=== PATIENT | female | born 1940 | race Caucasian/White ===

== ENCOUNTER 2024-01-02 00:16 | Inpatient (IN) | payer MEDICARE, OTHER, MEDICAID, SELFPAY ==
[2024-01-02] VITALS (51 sets, daily range): BP systolic 91–131; BP diastolic 40–77; PULSE 73–102; RESP 11–24; TEMP 36–36.8; O2SAT 92–100
--- NOTE | 2024-01-02 00:15 | DI.CT_ITS ---
Exam(s) CT ABDOMEN PELVIS W EXAM: CT ABDOMEN PELVIS W CLINICAL HISTORY: vaginal bleeding. TECHNIQUE: Imaging Protocol: Axial computed tomography images with coronal and sagittal reformatted images were created and reviewed CONTRAST MATERIAL: Intravenous: Omnipaque 350 Contrast volume:100 ml Oral: yes / no COMPARISON: No exams were available for comparison FINDINGS: ABDOMEN and PELVIS: Exam somewhat limited by patient body habitus. Portions of the abdominal soft tissues are not inclu ded in the field of view. Lung Bases: Moderate-sized bilateral pleural effusions. Adjacent atelectasis. Heart mildly enlarged . Mitral annular and aortic valve calcifications. No pericardial effusion. Liver: Normal density. No suspicious mass. Gallbladder and biliary tract: Cholecystostomy tube. No surrounding fluid collection. No significan t biliary dilatation. Pancreas: Normal density. No abnormal calcifications or inflammatory process. No evidence of mass. Spleen: Normal. Kidneys: Normal size, contour and axis. Small stone lower pole left kidney. No obstructive uropathy . No suspicious masses seen. Adrenal glands: No masses seen. Vasculature: Abdominal aorta non-dilated. Soft tissues: Small fat containing umbilical hernia. Some soft tissue edema seen in the lateral abdo brandie subcutaneous fat bilaterally. Muscular atrophy. Bladder: No gross wall thickening. No calculi.No focal mass. Bowel: Large amount of stool. Diverticulosis. No evidence of diverticulitis. No obstruction. Mil d perirectal wall thickening and some stranding in the surrounding fat. The findings may represent p roctitis. Appendix normal. Peritoneal cavity: No ascites. No focal collection. No mesenteric inflammatory response. Bones: Degenerative disc changes greatest at L4-5. Degenerative changes of the facet joints at L4-5 with mild spondylolisthesis. Reproductive organs: Left-sided Bartholin gland cyst. Lymph nodes: No pathologically enlarged lymph nodes. IMPRESSION:: Moderate-sized bilateral pleural effusions and adjacent atelectasis. Cholecystostomy tube. No biliary dilatation or surrounding fluid collection. Mild wall thickening of the rectum and mild perirectal stranding could indicate proctitis. Diverticulosis without evidence of diverticulitis. Large quantity of stool. RADIATION DOSE DELIVERED: Total DLP DATA REPOSITORY: All CT scans at this facility are submitted to the National Radiology Data Registry (NRDR) Dose Index Registry (DIR) with the [employer] (A[employer]). RADIATION OPTIMIZATION: All CT scans at this facility use at least one of these dose optimization te chniques: automated exposure control; mA and/or kV adjustment per patient size (includes targeted exa ms where dose is matched to clinical indication); or iterative reconstruction.
[2024-01-02 00:35] LABS: Abs Immature Grans 0.02 10^3/uL (0.0-0.06); Absolute Basophil Count 0.05 10^3/uL (0.0-0.2); Absolute Eosinophil Count 0.43 10^3/uL (0.0-0.7); Absolute Lymphocyte Count 1.49 10^3/uL (1.2-3.4); Absolute Monocyte Count 1.11 10^3/uL (0.1-0.8); Absolute Neutrophil Count 6.27 10^3/uL (1.2-6.7); Basophils % 0.5 %; Eosinophils % 4.6 %; HGB 7.1 g/dL (11.2-15.7); Immature Grans % 0.2 %; Lymphocytes % 15.9 %; MCHC 30.9 % (32.0-36.0); MCV 91 fL (80-95); MPV 10.1 fL (8.0-11.0); Monocytes % 11.8 %; Platelet Count 219 10^3/uL (130-400); RBC 2.54 10^6/uL (3.93-5.22); RDW 18.2 % (11.7-14.6); RDW-SD 60.7 fL; WBC 9.37 10^3/uL (4.4-10.8)
--- NOTE | 2024-01-02 00:36 | ED.GENADUL_ITS ---
Discharge Plan Disposition Patient Disposition: Admit to [facility] Condition: Good Discharge Details Chief Complaint: GI Bleed Clinical Impression: (HFpEF) heart failure with preserved ejection fraction, Anemia, Anticoagulant long-term use, Acute GI bleeding Primary Care Provider: Blade Thayer ED Provider: Shanna Spence Home Meds and New Rx's Prescriptions: No Action amlodipine 5 mg tablet 5 mg PO DAILY cholecalciferol (vitamin D3) 25 mcg (1,000 unit) capsule 25 mcg PO DAILY Eliquis 2.5 mg tablet 2.5 mg PO BID famotidine [Acid Controller] 20 mg tablet 20 mg PO DAILY fesoterodine 8 mg tablet extended release 24 hr 8 mg PO DAILY fluoxetine 20 mg capsule 20 mg PO DAILY fluticasone propionate [24 Hour Allergy Relief] 50 mcg/actuation spray,suspension 1 spray intranasal BID Rx Instructions: administer into each nostril furosemide 40 mg tablet 40 mg PO BID metoprolol succinate [Toprol XL] 100 mg tablet extended release 24 hr 100 mg PO DAILY mirabegron [Myrbetriq] 50 mg tablet extended release 24 hr 50 mg PO DAILY Spiriva Respimat 2.5 mcg/actuation mist 2 inh inhalation DAILY trazodone 50 mg tablet 50 mg PO QHS PRN acetaminophen [Tylenol Extra Strength] 500 mg tablet 1,000 mg PO Q8H PRN PRN atorvastatin 20 mg tablet 20 mg PO QHS HPI General Mode of arrival: EMS . Date/Time Provider Initiated Documentation: 01/02/24 00:20 . Limitations to Documentation: no limitations . Information obtained by: patient, EMS and old records reviewed . HPI Narrative: 83yo F who was [facility] on [facility] after gallbladder surgery, biliary drain in place, hx of T2DM, COPD, HTN, afib, CHF, CKD, GERD, on apixiban, presenting for reported heavy vaginal bleeding. History from patient, EMS, and medical records sent with patient. Patient reports this occurred around 8pm, she thought it was coming from her rectum but was told it was vaginal. Reports she had had post-menopausal bleeding in May of last year that lasted for about a week but was not heavy. None since then. Feels generally 'achy all over' but no focal pain and no abodminal pain. Lightheaded when she sits up quickly. No chest pain or shortness of breath. Otherwise in her usual state of health with no fevers, chills, rash, nausea, vomiting, or other concerns. Related Data Home Medications Medication Instructions Recorded Confirmed acetaminophen 500 mg tablet 1,000 mg PO Q8H PRN PRN 01/02/24 01/02/24 (Tylenol Extra Strength) amlodipine 5 mg tablet 5 mg PO DAILY 01/02/24 01/02/24 apixaban 2.5 mg tablet (Eliquis) 2.5 mg PO BID 01/02/24 01/02/24 atorvastatin 20 mg tablet 20 mg PO QHS 01/02/24 01/02/24 cholecalciferol (vitamin D3) 25 25 mcg PO DAILY 01/02/24 01/02/24 mcg (1,000 unit) capsule famotidine 20 mg tablet (Acid 20 mg PO DAILY 01/02/24 01/02/24 Controller) fesoterodine 8 mg tablet,extended 8 mg PO DAILY 01/02/24 01/02/24 release 24 hr fluoxetine 20 mg capsule 20 mg PO DAILY 01/02/24 01/02/24 fluticasone propionate 50 1 spray intranasal BID 01/02/24 01/02/24 mcg/actuation nasal spray,suspension (24 Hour Allergy Relief) furosemide 40 mg tablet 40 mg PO BID 01/02/24 01/02/24 metoprolol succinate 100 mg 100 mg PO DAILY 01/02/24 01/02/24 tablet,extended release 24 hr (Toprol XL) mirabegron 50 mg tablet,extended 50 mg PO DAILY 01/02/24 01/02/24 release 24 hr (Myrbetriq) tiotropium bromide 2.5 2 inh inhalation DAILY 01/02/24 01/02/24 mcg/actuation mist for inhalation (Spiriva Respimat) trazodone 50 mg tablet 50 mg PO QHS PRN 01/02/24 01/02/24 Allergies Allergy/AdvReac Type Severity Reaction Status Date / Time duloxetine [From Cymbalta] Allergy Unknown Unknown Verified 01/02/24 00:38 hydrochlorothiazide Allergy Unknown Unknown Verified 01/02/24 00:38 indomethacin [From Indocin] Allergy Unknown Unknown Verified 01/02/24 00:38 lisinopril Allergy Unknown Unknown Verified 01/02/24 00:38 oxybutynin Allergy Unknown Unknown Verified 01/02/24 00:38 tolmetin Allergy Unknown Unknown Verified 01/02/24 00:38 triamterene Allergy Unknown Unknown Verified 01/02/24 00:38 banana Allergy Unknown Verified 01/02/24 00:38 General Stated Complaint: [employer]EVEL [employer] EVAN: 3 Review of Systems Narrative: see HPI Exam Narrative Exam Narrative: General: Alert, chronically ill appearing, in no acute distress. Head: Normocephalic, atraumatic. Pale conjuctiva. Neck: Trachea midline, ?Neck supple. ENT: ?MMM.? No oropharygeal lesions or exudate. Cardiac: ?RRR, no murmurs appreciated. Right chest port in place. Resp: No respiratory distress. CTAB. Abd: ?Soft, non-distended, nontender. Biliary drain in place. : ?No suprapubic tenderness. Pelvic: Limited pelvic exam. Normal external genitalia. No active bleeding, no blood noted in the vaginal vault. Cervix not visualized. Rectal: No active bleeding. Normal tone. No palpable lesions or fissures. Gross blood present on glove. Extremities: ?No deformities.? Neurologic: GCS 15. ? Moves all extremities freely against gravity Course Vital Signs Vital signs: Vital Signs Temperature 36.5 C 01/02/24 00:15 Pulse 94 H 01/02/24 00:15 Respiratory Rate 16 01/02/24 00:15 Blood Pressure 131/76 01/02/24 00:15 Pulse Oximetry 98 01/02/24 00:15 Temperature 36.5 C 01/02/24 00:15 Temperature Source Temporal Artery Scan 01/02/24 00:15 Pulse 94 H 01/02/24 00:15 Respiratory Rate 16 01/02/24 00:15 Respiratory Effort Normal 01/02/24 00:23 Blood Pressure 131/76 01/02/24 00:15 Pulse Oximetry 98 01/02/24 00:15 Oxygen Delivery Method Blow by 01/02/24 00:15 Oxygen Flow Rate 0 01/02/24 00:15 Pain Level 0 01/02/24 00:15 Lab/Test Results Lab/Test Results: Laboratory Tests Range/Units 01/02/24 00:23 WBC (4.4-10.8) 10^3/uL 9.37 RBC (3.93-5.22) 10^6/uL 2.54 L Hgb (11.2-15.7) g/dL 7.1 L Hct (36.0-46.0) % 23.0 L MCV (80-95) fL 91 MCH (27.0-33.0) pg 28.0 MCHC (32.0-36.0) % 30.9 L RDW (11.7-14.6) % 18.2 H Plt Count (130-400) 10^3/uL 219 MPV (8.0-11.0) fL 10.1 Immature Gran % % 0.2 Neutrophils % % 67.0 Lymphocytes % % 15.9 Monocytes % % 11.8 Eosinophils % % 4.6 Basophils % % 0.5 Nucleated RBC % (0.0-0.3) % 0.0 Absolute Neutrophils (1.2-6.7) 10^3/uL 6.27 Absolute Lymphocytes (1.2-3.4) 10^3/uL 1.49 Absolute Monocytes (0.1-0.8) 10^3/uL 1.11 H Absolute Eosinophils (0.0-0.7) 10^3/uL 0.43 Absolute Basophils (0.0-0.2) 10^3/uL 0.05 VBG Lactate (0.6-1.4) mmol/L 1.0 Medical Decision Making 83yo F who was admitted to [facility] on 12/27 after gallbladder surgery, biliary drain in place, hx of T2DM, COPD, HTN, afib, CHF, CKD, GERD, on apixiban, presenting for reported heavy vaginal bleeding. History from patient, EMS, and medical records sent with patient. Patient reports this occurred around 8pm, she thought it was coming from her rectum but was told it was vaginal. Vital signs reassuring on arrival, mild tachycardia with HR 94. On exam she is alert but does have pale conjuctiva. Benign abdominal exam. Limited pelvic exam shows no vaginal bleed, rectal exam with scant amount of gross blood on glove however no active bleeding. Labs reviewed as below, CBC with marked anemia Hg 7.1, CMP with Cr 2.1 (unknown baseline) otherwise no immediately significant abnormalities, lactate normal, slightly elevated INR at 1.2. With significant bleed and borderline Hg, as well as delicate age, will transfuse 1U PRBCs now. Given this degree of anemia will evaluate for cardiac ischemic with EKG and trop. EKG afib with no ST segment or T wave abnormalities to suggest occlusive TN, trop negative. CT abd/pelvis independently reviewed, no obstruction or free fluid on my view though does have bilateral pleural e ffusions , agree with radiology read below. She is at her baseline supplemental O2 via NC and has no chest pain or shortness of breath; unclear duration of effusions. Multiple attempts to get [place] records [place] [facility] [facility] [facility] transfer center able to provide H&P and discharge summary from most recent admission there. In summary, hospital admission for septic shock, po lymicrobrial bacteremia including MRSA, E coli UTI, and coliits. Initially in the ICU, intubated. Course was c/b rectal bleeding requiring transfusion of 2U PRBCS as well as HFpEF exacerbation improved after diuresis. Last PERC tube exchange 11/27/23, plan for cholecystectomy at some point. At hospital discharge plan was for outpatient colonoscopy. CT chest showed bilateral pleural effusions (small on right, moderate on left) On reassessment patient resting comfortably, denies complaints. Blood infusion. No further bleeding or bowel movements. MAP remains >65. Discussed with Dr. Santa of surgery; requested admission to the medicine service, plan for colonoscopy at some point. Discussed with hospitalist Dr. Srinivasan; patient accepted to medicine service. Awaiting admission orders and transfer to the floor. Imaging Data Radiologic Study: Imaging: CT Scan Radiologist's impression: IMPRESSION: 1. Large pleural effusions bilaterally and bibasilar atelectasis/infiltrate 2. Fluid stranding around the cholecystostomy tube. No biliary ductal dilatation. 3. Perirectal stranding. Correlate for proctitis. Lab Data Lab results reviewed: Yes I reviewed the patient's lab results. Labs: Laboratory Tests Range/Units 01/02/24 01/02/24 00:23 01:30 WBC (4.4-10.8) 10^3/uL 9.37 RBC (3.93-5.22) 10^6/uL 2.54 L Hgb (11.2-15.7) g/dL 7.1 L Hct (36.0-46.0) % 23.0 L MCV (80-95) fL 91 MCH (27.0-33.0) pg 28.0 MCHC (32.0-36.0) % 30.9 L RDW (11.7-14.6) % 18.2 H Plt Count (130-400) 10^3/uL 219 MPV (8.0-11.0) fL 10.1 Immature Gran % % 0.2 Neutrophils % % 67.0 Lymphocytes % % 15.9 Monocytes % % 11.8 Eosinophils % % 4.6 Basophils % % 0.5 Nucleated RBC % (0.0-0.3) % 0.0 Absolute Neutrophils (1.2-6.7) 10^3/uL 6.27 Absolute Lymphocytes (1.2-3.4) 10^3/uL 1.49 Absolute Monocytes (0.1-0.8) 10^3/uL 1.11 H Absolute Eosinophils (0.0-0.7) 10^3/uL 0.43 Absolute Basophils (0.0-0.2) 10^3/uL 0.05 PT (9.1-11.1) sec 11.9 H INR (0.9-1.1) 1.2 H APTT (23.6-32.8) sec 27.6 VBG Lactate (0.6-1.4) mmol/L 1.0 Sodium (136-145) mmol/L 138 Potassium (3.5-5.1) mmol/L 3.6 Chloride (98-107) mmol/L 95 L Carbon Dioxide (21.0-32.0) mmol/L 39.7 H Anion Gap (3-11) mmol/L 3.3 BUN (7-18) mg/dL 31 H Creatinine (0.55-1.02) mg/dL 2.1 H Est GFR (CKD-EPI 2020) (mL/min/1.73m2) 22.95 Glucose (74-106) mg/dL 140 H Calcium (8.5-10.1) mg/dL 8.4 L Total Bilirubin (0.2-1.0) mg/dL 0.7 AST (15-37) U/L 18 ALT (14-59) U/L 16 Alkaline Phosphatase (46-116) U/L 88 Troponin I (< or =60) ng/L < 50 Total Protein (6.4-8.2) g/dL 6.0 L Albumin (3.4-5.0) g/dL 2.1 L ABO/Rh O Positive Blood Type Recheck O Positive Antibody Screen NEGATIVE Crossmatch See Detail Quality:SDOH Health Related Social Needs: No Data to Display PFSH All Active Problems (Updated 01/02/24 @ 03:05 by Shanna Spence MD) Acute GI bleeding (Acute) Anticoagulant long-term use (Acute) Anemia (Chronic) (HFpEF) heart failure with preserved ejection fraction (Acute) Social History Smoking risk assessment performed?: No
--- NOTE | 2024-01-02 00:45 | RT.EKG_ITS ---
APPROVED REPORT Exam: Resting ECG Reason for Exam: anemia Patient Location: E HR:90 bpm ECG Measurements Heart Rate 90 AXIS NC [id number] P [id number] QRSd 92 QRS -22 QT 383 T 45 QTc 469 Conclusion Atrial fibrillation...V-rate 65-107, irreg A-activity Multiple ventricular premature complexes...V complexes w/ short R-R intervls Probable LVH with secondary repol abnrm...multiple LVH criteria Inferior infarct, old...Q >35mS, II III aVF no ST segment or T wave abnormalities to suggest occlusive [place]
[2024-01-02 00:49] LABS: INR 1.2 (0.9-1.1); PTT Activated 27.6 sec (23.6-32.8); Prothrombin Time 11.9 sec (9.1-11.1)
[2024-01-02 00:56] LABS: ALT 16 U/L (14-59); AST 18 U/L (15-37); Albumin 2.1 g/dL (3.4-5.0); Alkaline Phosphatase 88 U/L (46-116); Anion Gap 3.3 mmol/L (3-11); BUN 31 mg/dL (7-18); Bilirubin, Total 0.7 mg/dL (0.2-1.0); CO2 39.7 mmol/L (21.0-32.0); CREATININE 2.1 mg/dL (0.55-1.02); Calcium 8.4 mg/dL (8.5-10.1); Chloride 95 mmol/L (98-107); Estimated GFR 22.95 (mL/min/1.73m2); Glucose 140 mg/dL (74-106); Potassium 3.6 mmol/L (3.5-5.1); Sodium 138 mmol/L (136-145)
--- NOTE | 2024-01-02 01:08 | TELEP.MEDR_ITS ---
Date of service: 01/02/24 Time of Service[facility] 01:08 [facility] Allergies Allergies: duloxetine [From Cymbalta] Allergy (Unknown, Verified 01/02/24 00:38) Unknown hydrochlorothiazide Allergy (Unknown, Verified 01/02/24 00:38) Unknown indomethacin [From Indocin] Allergy (Unknown, Verified 01/02/24 00:38) Unknown lisinopril Allergy (Unknown, Verified 01/02/24 00:38) Unknown oxybutynin Allergy (Unknown, Verified 01/02/24 00:38) Unknown tolmetin Allergy (Unknown, Verified 01/02/24 00:38) Unknown triamterene Allergy (Unknown, Verified 01/02/24 00:38) Unknown banana Allergy (Verified 01/02/24 00:38) Unknown Interview Person Interviewed: * Spoke with RN at [facility], she went over medications verbally with me over the phone, since MAR was not able to be faxed over correctly. Quality Quality of Interview/Accuracy of Medication List: Good Sources Sources used to compile medication list: MAR Changes made to Home Medication List: ADDITIONS: * Amlodipine 5mg po daily * Vitamin D 1000units po daily * Eliquis 2.5mg po bid * Famotidine 20mg po daily * Fesoterodine ER 8mg po daily * Fluoxetine 20mg po daily * Flonase 1 spray each nostril bid * Lasix 40mg po bid * Toprol XL 100mg po daily * Myrbetriq ER 50mg po daily * Spirivia respimate 2.5mcg inhale 2 puffs daily * Trazodone 50mg po hs prn * Tylenol 1000mg po tid prn * Atorvastatin 20mg po hs DELETIONS: None CHANGES: None Additional Notes Additional Notes: Patient received Vancomycin 1000mg IV for one dose 01/01/24 prior to arriving to [facility]. Patient did not get evening doses of medications. Recommended Changes Recommended Changes(reason for recommendation): None Attestation: The home medication list is now updated to the best of my knowledge and is ready to be reconciled by the provider. Please contact the [facility] Medication Reconciliation Pharmacist at for any questions.
--- NOTE | 2024-01-02 01:08 | TELEP.MEDREC ---
Date of service: 01/02/24 [facility] Allergies: duloxetine [From Cymbalta] Allergy (Unknown, Verified 01/02/24 00:38) Unknown hydrochlorothiazide Allergy (Unknown, Verified 01/02/24 00:38) Unknown indomethacin [From Indocin] Allergy (Unknown, Verified 01/02/24 00:38) Unknown lisinopril Allergy (Unknown, Verified 01/02/24 00:38) Unknown oxybutynin Allergy (Unknown, Verified 01/02/24 00:38) Unknown tolmetin Allergy (Unknown, Verified 01/02/24 00:38) Unknown triamterene Allergy (Unknown, Verified 01/02/24 00:38) Unknown banana Allergy (Verified 01/02/24 00:38) Unknown Interview Person Interviewed: Spoke with RN at [facility], she went over medications verbally with me over the phone, since MAR was not able to be faxed over correctly. Quality Quality of Interview/Accuracy of Medication List: Good Sources Sources used to compile medication list: MAR Changes made to Home Medication List: ADDITIONS: Amlodipine 5mg po daily Vitamin D 1000units po daily Eliquis 2.5mg po bid Famotidine 20mg po daily Fesoterodine ER 8mg po daily Fluoxetine 20mg po daily Flonase 1 spray each nostril bid Lasix 40mg po bid Toprol XL 100mg po daily Myrbetriq ER 50mg po daily Spirivia respimate 2.5mcg inhale 2 puffs daily Trazodone 50mg po hs prn Tylenol 1000mg po tid prn Atorvastatin 20mg po hs DELETIONS: None CHANGES: None Additional Notes Additional Notes: Patient received Vancomycin 1000mg IV for one dose 01/01/24 prior to arriving to [facility]. Patient did not get evening doses of medications. Recommended Changes Recommended Changes(reason for recommendation): None Attestation: The home medication list is now updated to the best of my knowledge and is ready to be reconciled by the provider. Please contact the [facility] Medication Reconciliation Pharmacist at for any questions.
[2024-01-02 01:10] LABS: Troponin I < 50 ng/L (< or =60)
[2024-01-02] MEDS: Omnipaque 350 MG/ML 100 ML BTL IJ (01:27)
[2024-01-02] MEDS: Normal Saline - Diluent 50 ML VIAL IV (01:28)
--- NOTE | 2024-01-02 01:35 | NUR.NOTE ---
Patient had CT Scan prior to EKG being performed.
--- NOTE | 2024-01-02 02:24 | DI.VRAD_ITS ---
PROCEDURE INFORMATION: Exam: CT Abdomen And Pelvis With Contrast Exam date and time: 01/02/2024 1:18 AM Age: 83 years old Clinical indication: Other: Vaginal bleeding TECHNIQUE: Imaging protocol: Computed tomography of the abdomen and pelvis with contrast. Contrast material: OMNI 350; Contrast volume: 100 ml; Contrast route: INTRAVENOUS (IV); COMPARISON: No relevant prior studies available. FINDINGS: Lower thorax: Large pleural effusions bilaterally. Dependent atelectasis/infiltrate and ground-glass opacities bilaterally. Liver: Normal. No mass. Gallbladder and bile ducts: Cholecystostomy tube is present. There is fluid stranding around the tube. No discrete fluid collections. No significant biliary ductal dilatation. Pancreas: Normal. No ductal dilation. Spleen: Normal. No splenomegaly. Adrenal glands: Normal. No mass. Kidneys and ureters: No hydronephrosis. Punctate nonobstructing calculus in the left kidney. Stomach and bowel: No evidence of bowel obstruction. Large amount of stool in the colon. Posterior perirectal stranding. Appendix: Normal appendix. Intraperitoneal space: No free fluid or free air. Vasculature: Ectatic, calcified abdominal aorta without aneurysm or dissection. Lymph nodes: Unremarkable. No enlarged lymph nodes. Urinary bladder: Unremarkable as visualized. Reproductive: Left-sided Bartholin gland cyst. Bones/joints: Grade 1 spondylolisthesis at L4-L5. Degenerative disc disease of the thoracolumbar spine. No acute fracture. Soft tissues: Small umbilical hernia containing fat. IMPRESSION: 1. Large pleural effusions bilaterally and bibasilar atelectasis/infiltrate 2. Fluid stranding around the cholecystostomy tube. No biliary ductal dilatation. 3. Perirectal stranding. Correlate for proctitis. Dictated and Authenticated by: Eber Alba MD. Ordering:GAURI Otero MD
--- NOTE | 2024-01-02 03:11 | HPE_ITS ---
Date of service: 01/02/24 Time of Service: 03:11 Assessment and Plan Assessment and plan (1) Acute blood loss anemia: Start date: 01/01/24 Status: Acute Assessment and plan: This is an 83-year-old lady with recurrent complications of an abscess gallbladder every hospitalizations for sepsis and infection requiring chronic PICC line in her right upper chest as well as a chronic cholecystostomy tube draining and right upper quadrant. She did have a lower GI bleed with diverticulosis and possible colitis with her last hospitalization at [facility] but was replaced on Eliquis for chronic atrial fibrillation which is 2.5 mg twice a day and sent to the local rehab center in [place]. She began to have rectal bleeding and has acute blood loss anemia requiring transfusion with 1 unit of packed red blood cells given so far being cautious with her CHF. She has not hemodynamically unstable with no tachycardia but is on metoprolol for chronic atrial fibrillation and her blood pressure is adequate but low. She will be placed on split dosing metoprolol and monitor closely for hypotension or exacerbation of heart failure has been transfused. Surgical consultation to address her lower GI bleed as well as her cholecystostomy tube and PICC line. Patient is a full code. (2) Lower GI bleed: Status: Acute Assessment and plan: Was diverticulosis on CT scan needing endoscopy. Surgical consultation. Clear fluids for now. (3) Colitis: Status: Acute Assessment and plan: Patient does have left lower quadrant tenderness without rebound and CT scan with last hospitalization and this hospitalization indicating diverticulosis but no diverticulitis or abscess. She does have thickening and stranding of her colonic rincon and there lower colon with consideration of colitis. Sed rate and procalcitonin have been ordered with patient lactate normal. He does not have an elevated WBC. Antibiotics considered but being held for now with surgical consultation to advise. (4) Diverticulosis: Status: Chronic Assessment and plan: Possible source of recurrent lower GI bleed with patient on Eliquis. Eventual endoscopy for evaluation. (5) Chronic atrial fibrillation: Status: Chronic Assessment and plan: On Eliquis which will be held with patient to return to anticoagulation once stabilized. (6) (HFpEF) heart failure with preserved ejection fraction: Status: Chronic Assessment and plan: Hold diuretics for now with patient's low blood pressure but reinitiate as allowed. Follow-up echocardiogram as indicated. Qualifiers: Heart failure chronicity: chronic Qualified Code(s): I50.32 - Chronic diastolic (congestive) heart failure (7) COPD (chronic obstructive pulmonary disease): Status: Chronic Assessment and plan: Continue outpatient medical therapy and monitor symptoms. Qualifiers: COPD type: unspecified COPD Qualified Code(s): J44.9 - Chronic obstructive pulmonary disease, unspecified (8) Depression: Status: Chronic Assessment and plan: Continue outpatient medical therapy and monitor symptoms. Qualifiers: Depression Type: other depression Qualified Code(s): F32.89 - Other specified depressive episodes (9) Edema of left upper extremity: Status: Chronic Assessment and plan: This is been intermittent with her recent hospitalizations the patient has been and mobile with risk of venous thrombosis. She is on low-dose Eliquis which may be inadequate. Ultrasound of the upper extremity and if DVT needs to be anticoagulated with her GI bleed this is complicated. History of Present Illness History of Present Illness Chief Complaint: Rectal bleeding with acute blood loss anemia Narrative: This is an 83-year-old female patient who had acute abdominal pain with her gallbladder abscess and ruptured in April 2023 prompting hospitalization at [facility] having a cholecystostomy tube placed and no corrective surgery and also being treated for sepsis and infection. She was eventually transferred to [facility] for continued ICU medical therapy being unstable. She is a full code. She has remained intermittently ill since that event going home and then being rehospitalized at [facility] eventually having gone to the [facility] near her home but requiring recurrent hospitalizations for infection. She had a most recent hospitalization at [facility] for sepsis and during that time had a lower GI bleed with bright red blood requiring transfusion 2 units of packed red blood cells per ED provider signout. Her Eliquis had been held during the last hospital stay at [facility] but restarted before discharge without having endoscopy evaluation with CT scan of the abdomen showing diverticulosis and possible colitis. There was a plan for outpatient endoscopy at that discharge. She was at the [facility] only 4 days after this last hospitalization presenting to the [facility] ED this hospitalization with bright red blood per rectum without syncope or palpitations and having no discomfort reported. She was found to have acute blood loss anemia requiring transfusion with initiation of 1 unit of packed red blood cells in the ED prior to admission. Presently her blood pressure is soft and her metoprolol has been split dose with short acting metoprolol because of chronic atrial fibrillation now with situational low blood pressure. She is weak but is not having chest pain or shortness of breath with a history of CHF and bilateral pleural effusions which are stable. She does complain of intermittent left arm pain which is more musculoskeletal have been hospitalized and having her arm moved without her being fully awake and being a bad shoulder in the past. She does have intermittent swelling in that arm and is on low-dose Eliquis so DVT should be a consideration with her immobility and multiple procedures. She does have a PICC line in her right chest which has been replaced several times over the last months. She also has a cholecystostomy tube in her right upper abdomen which is chronic since April 2023. She is morbidly obese which is a risk factor for venous thrombosis. Patient states that she has been steadily going downhill but as stated is a full code. Her desire is to return home eventually with home health care worker 5 times a week. The patient will be admitted for transfusion and monitoring of her cardiovascular status with surgical consultation for acute GI bleed and blood loss anemia. Her other medical problems will be attended by the surgeon and the hospitalist during this hospitalization. Review of Systems Narrative: 13 point review of systems otherwise unrevealing or stable. She has had no fever or chills. She denies any dysuria or abdominal pain with bowel movements. She did have bright red blood as reported. She has had no vaginal bleeding. PFSH All Active Problems (Updated 01/02/24 @ 05:54 by Wojciech Srinivasan) Edema of left upper extremity (Chronic) Depression (Chronic) COPD (chronic obstructive pulmonary disease) (Chronic) Colitis (Acute) Lower GI bleed (Acute) Acute blood loss anemia (Acute) Diverticulosis (Chronic) Chronic atrial fibrillation (Chronic) Acute GI bleeding (Acute) Anticoagulant long-term use (Acute) Anemia (Chronic) (HFpEF) heart failure with preserved ejection fraction (Chronic) Social History Smoking/Tobacco Use Status: Former Tobacco Use Smoking risk assessment performed?: Yes Housing: skilled nursing Meds Allergies and Home Medications Allergies Allergy/AdvReac Type Severity Reaction Status Date / Time duloxetine [From Cymbalta] Allergy Unknown Unknown Verified 01/02/24 00:38 hydrochlorothiazide Allergy Unknown Unknown Verified 01/02/24 00:38 indomethacin [From Indocin] Allergy Unknown Unknown Verified 01/02/24 00:38 lisinopril Allergy Unknown Unknown Verified 01/02/24 00:38 oxybutynin Allergy Unknown Unknown Verified 01/02/24 00:38 tolmetin Allergy Unknown Unknown Verified 01/02/24 00:38 triamterene Allergy Unknown Unknown Verified 01/02/24 00:38 banana Allergy Unknown Verified 01/02/24 00:38 Home Medications Medication Instructions Recorded Confirmed Type acetaminophen 500 mg tablet 1,000 mg PO Q8H PRN PRN 01/02/24 01/02/24 History (Tylenol Extra Strength) amlodipine 5 mg tablet 5 mg PO DAILY 01/02/24 01/02/24 History apixaban 2.5 mg tablet (Eliquis) 2.5 mg PO BID 01/02/24 01/02/24 History atorvastatin 20 mg tablet 20 mg PO QHS 01/02/24 01/02/24 History cholecalciferol (vitamin D3) 25 25 mcg PO DAILY 01/02/24 01/02/24 History mcg (1,000 unit) capsule famotidine 20 mg tablet (Acid 20 mg PO DAILY 01/02/24 01/02/24 History Controller) fesoterodine 8 mg tablet,extended 8 mg PO DAILY 01/02/24 01/02/24 History release 24 hr fluoxetine 20 mg capsule 20 mg PO DAILY 01/02/24 01/02/24 History fluticasone propionate 50 1 spray intranasal BID 01/02/24 01/02/24 History mcg/actuation nasal spray,suspension (24 Hour Allergy Relief) furosemide 40 mg tablet 40 mg PO BID 01/02/24 01/02/24 History metoprolol succinate 100 mg 100 mg PO DAILY 01/02/24 01/02/24 History tablet,extended release 24 hr (Toprol XL) mirabegron 50 mg tablet,extended 50 mg PO DAILY 01/02/24 01/02/24 History release 24 hr (Myrbetriq) tiotropium bromide 2.5 2 inh inhalation DAILY 01/02/24 01/02/24 History mcg/actuation mist for inhalation (Spiriva Respimat) trazodone 50 mg tablet 50 mg PO QHS PRN 01/02/24 01/02/24 History Exam Narrative Exam Narrative: General: Patient appears older than stated age, morbidly obese with flattened affect and slow speech but alert and oriented x 3. She is in moderate distress from her nausea. HEENT: Normocephalic, eyes with pupils equal and reactive to light symmetrically, extraocular movement intact and sclera anicteric. Oropharynx with dry oral mucosa. Neck: Supple without JVD. Back: Kyphotic without CVA tenderness. Lungs: Decreased aeration of the left more than right lower lung blanchard with no focalizing rales or rhonchi. Bronchovesicular breath sounds diffusely with fair aeration over the upper lung blanchard and scant intermittent expiratory wheeze but no increased expiratory phase. Heart: Irregular irregular rhythm with 4-6 systolic murmur left arm border. No gallops or rubs. Breast: Exam deferred. Abdomen: Morbidly obese contour but soft to palpation with slight guarding in the left lower quadrant without rebound. Cholecystostomy tube in the right upper abdomen draining clear bilious fluid. No palpable hepatosplenomegaly but exam made difficult by obesity. Bowel sounds positive all quadrants. Genitalia/rectal: Exam deferred. Extremities: Without clubbing, cyanosis or grossly pitting edema. Patient has nonpitting edema over left upper extremity. Good capillary refill. Skin: Pale, warm and dry. Neuro: Cranial nerves II through XII gross intact, no focalizing motor deficits. No tremor. Psych: Flattened affect with depressed mood. Slow monotonous tone to voice. No abnormal thought processes. Remote and recent memory intact. Results Imaging Imaging Studies: Exam: CT Abdomen And Pelvis With Contrast Exam date and time: 01/02/2024 1:18 AM Age: 83 years old Clinical indication: Other: Vaginal bleeding TECHNIQUE: Imaging protocol: Computed tomography of the abdomen and pelvis with contrast. Contrast material: OMNI 350; Contrast volume: 100 ml; Contrast route: INTRAVENOUS (IV); COMPARISON: No relevant prior studies available. FINDINGS: Lower thorax: Large pleural effusions bilaterally. Dependent atelectasis/infiltrate and ground-glass opacities bilaterally. Liver: Normal. No mass. Gallbladder and bile ducts: Cholecystostomy tube is present. There is fluid stranding around the tube. No discrete fluid collections. No significant biliary ductal dilatation. Pancreas: Normal. No ductal dilation. Spleen: Normal. No splenomegaly. Adrenal glands: Normal. No mass. Kidneys and ureters: No hydronephrosis. Punctate nonobstructing calculus in the left kidney. Stomach and bowel: No evidence of bowel obstruction. Large amount of stool in the colon. Posterior perirectal stranding. Appendix: Normal appendix. Intraperitoneal space: No free fluid or free air. Vasculature: Ectatic, calcified abdominal aorta without aneurysm or dissection. Lymph nodes: Unremarkable. No enlarged lymph nodes. Urinary bladder: Unremarkable as visualized. Reproductive: Left-sided Bartholin gland cyst. Bones/joints: Grade 1 spondylolisthesis at L4-L5. Degenerative disc disease of the thoracolumbar spine. No acute fracture. Soft tissues: Small umbilical hernia containing fat. IMPRESSION: 1. Large pleural effusions bilaterally and bibasilar atelectasis/infiltrate 2. Fluid stranding around the cholecystostomy tube. No biliary ducta dilatation. 3. Perirectal stranding. Correlate for proctitis. l Labs 01/02/24 04:15 01/02/24 00:23 Labs: Laboratory Results - last 24 hr 01/02/24 01/02/24 00:23 01:30 WBC 9.37 RBC 2.54 L Hgb 7.1 L Hct 23.0 L MCV 91 MCH 28.0 MCHC 30.9 L RDW 18.2 H Plt Count 219 MPV 10.1 Immature Gran % 0.2 Neutrophils % 67.0 Lymphocytes % 15.9 Monocytes % 11.8 Eosinophils % 4.6 Basophils % 0.5 Nucleated RBC % 0.0 Absolute Neutrophils 6.27 Absolute Lymphocytes 1.49 Absolute Monocytes 1.11 H Absolute Eosinophils 0.43 Absolute Basophils 0.05 PT 11.9 H INR 1.2 H APTT 27.6 VBG Lactate 1.0 Sodium 138 Potassium 3.6 Chloride 95 L Carbon Dioxide 39.7 H Anion Gap 3.3 BUN 31 H Creatinine 2.1 H Est GFR (CKD-EPI 2020) 22.95 Glucose 140 H Calcium 8.4 L Total Bilirubin 0.7 AST 18 ALT 16 Alkaline Phosphatase 88 Troponin I < 50 Total Protein 6.0 L Albumin 2.1 L ABO/Rh O Positive Blood Type Recheck O Positive Antibody Screen NEGATIVE Crossmatch See Detail Last Vital Signs Temp 36.2 C L 01/02/24 02:50 Pulse 85 01/02/24 02:50 Resp 19 01/02/24 02:50 BP 96/59 L 01/02/24 02:50 Pulse Ox 98 01/02/24 02:50 Time Spent Time spent with Patient: >75 minutes Time was spent: preparing to see the patient(eg.review tests), obtaining and/or reviewing separately otained hiistory, ordering medications,tests, procedures, referring, communicating with other health career development director, indepentently interpreting results, counseling the patient and care coordination
[2024-01-02 04:19] LABS: HCT 25.8 % (36.0-46.0); HGB 8.1 g/dL (11.2-15.7); MCH 28.2 pg (27.0-33.0); MCHC 31.4 % (32.0-36.0); MCV 90 fL (80-95); MPV 9.8 fL (8.0-11.0); Platelet Count 188 10^3/uL (130-400); RBC 2.87 10^6/uL (3.93-5.22); RDW 17.2 % (11.7-14.6); RDW-SD 56.7 fL; WBC 8.32 10^3/uL (4.4-10.8)
--- NOTE | 2024-01-02 04:26 | W.PCEDHO ---
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 H&R w c 01/02/24 00:15 /o vaginal bleeding (heavy pooling/clots) that started at 1999 last night. Pt has a hx of spotting but not this bad. Pt was examined at rehab who states blood is coming out of her vagina. Denies v/d, abd pain, CP, SOB. Pt arrives w a bili drain in place d/t infection in gallbladder and is currently taking abx. No trauma reported. No abd injury. Pt also c/o nausea. Pt on apixaban. Most Recent Vital Signs Temperature 36.2 C L 01/02/24 02:50 Temperature Source Temporal Artery Scan 01/02/24 00:15 Pulse 86 01/02/24 03:31 Pulse 88 01/02/24 03:31 Respiratory Rate 23 01/02/24 03:31 Respiratory Effort Normal 01/02/24 00:23 Blood Pressure 124/68 01/02/24 03:31 Blood Pressure Mean 89 01/02/24 03:31 Pulse Oximetry 98 01/02/24 03:31 Oxygen Delivery Method Room Air 01/02/24 02:50 Oxygen Flow Rate 0 01/02/24 02:50 Pain Level 0 01/02/24 00:15 Allergies duloxetine [From Cymbalta] Allergy (Unknown, Verified 01/02/24 00:38) Unknown hydrochlorothiazide Allergy (Unknown, Verified 01/02/24 00:38) Unknown indomethacin [From Indocin] Allergy (Unknown, Verified 01/02/24 00:38) Unknown lisinopril Allergy (Unknown, Verified 01/02/24 00:38) Unknown oxybutynin Allergy (Unknown, Verified 01/02/24 00:38) Unknown tolmetin Allergy (Unknown, Verified 01/02/24 00:38) Unknown triamterene Allergy (Unknown, Verified 01/02/24 00:38) Unknown banana Allergy (Verified 01/02/24 00:38) Unknown Active Medications Generic Name Dose Route Start Last Admin Trade Name Freq PRN Reason Stop Dose Admin Iohexol 100 ml 01/02/24 01:30 01/02/24 01:27 Omnipaque 350 Mg/Ml 100 Ml Btl IJ 02/01/24 23:59 100 ml DIRECTED REESE Administration Sodium Chloride 50 ml 01/02/24 01:30 01/02/24 01:28 Normal Saline - Diluent 50 Ml Vial IV 50 ml .FOR DI USE REESE Administration IV IV Catheter Type [Right PICC] PICC Line Diet Orders Category Date Time Status Heart Healthy Eating [DIET] Nutrition 01/02/24 Breakfast Active Diagnostics 01/02/24 01/02/24 01/02/24 Range/Units Unknown 21:30 15:30 WBC Pending Pending (4.4-10.8) 10^3/uL RBC Pending Pending (3.93-5.22) 10^6/uL Hgb Pending Pending (11.2-15.7) g/dL Hct Pending Pending (36.0-46.0) % MCV Pending Pending (80-95) fL MCH Pending Pending (27.0-33.0) pg MCHC Pending Pending (32.0-36.0) % RDW Pending Pending (11.7-14.6) % Plt Count Pending Pending (130-400) 10^3/uL MPV Pending Pending (8.0-11.0) fL Immature Gran % % Neutrophils % % Lymphocytes % % Monocytes % % Eosinophils % % Basophils % % Nucleated RBC % (0.0-0.3) % Absolute Neutrophils (1.2-6.7) 10^3/uL Absolute Lymphocytes (1.2-3.4) 10^3/uL Absolute Monocytes (0.1-0.8) 10^3/uL Absolute Eosinophils (0.0-0.7) 10^3/uL Absolute Basophils (0.0-0.2) 10^3/uL ESR PT (9.1-11.1) sec INR (0.9-1.1) APTT (23.6-32.8) sec VBG Lactate Pending (0.6-1.4) mmol/L Sodium (136-145) mmol/L Potassium (3.5-5.1) mmol/L Chloride (98-107) mmol/L Carbon Dioxide (21.0-32.0) mmol/L Anion Gap (3-11) mmol/L BUN (7-18) mg/dL Creatinine (0.55-1.02) mg/dL Est GFR (CKD-EPI 2020) (mL/min/1.73m2) Glucose (74-106) mg/dL Calcium (8.5-10.1) mg/dL Magnesium Total Bilirubin (0.2-1.0) mg/dL AST (15-37) U/L ALT (14-59) U/L Alkaline Phosphatase (46-116) U/L Troponin I (< or =60) ng/L Total Protein (6.4-8.2) g/dL Albumin (3.4-5.0) g/dL Procalcitonin Pending ABO/Rh Blood Type Recheck Antibody Screen Crossmatch 01/02/24 01/02/24 01/02/24 Range/Units 09:30 05:35 04:15 WBC Pending Pending (4.4-10.8) 10^3/uL RBC Pending Pending (3.93-5.22) 10^6/uL Hgb Pending Pending (11.2-15.7) g/dL Hct Pending Pending (36.0-46.0) % MCV Pending Pending (80-95) fL MCH Pending Pending (27.0-33.0) pg MCHC Pending Pending (32.0-36.0) % RDW Pending Pending (11.7-14.6) % Plt Count Pending Pending (130-400) 10^3/uL MPV Pending Pending (8.0-11.0) fL Immature Gran % % Neutrophils % % Lymphocytes % % Monocytes % % Eosinophils % % Basophils % % Nucleated RBC % (0.0-0.3) % Absolute Neutrophils (1.2-6.7) 10^3/uL Absolute Lymphocytes (1.2-3.4) 10^3/uL Absolute Monocytes (0.1-0.8) 10^3/uL Absolute Eosinophils (0.0-0.7) 10^3/uL Absolute Basophils (0.0-0.2) 10^3/uL ESR PT Pending (9.1-11.1) sec INR Pending (0.9-1.1) APTT (23.6-32.8) sec VBG Lactate (0.6-1.4) mmol/L Sodium Pending (136-145) mmol/L Potassium Pending (3.5-5.1) mmol/L Chloride Pending (98-107) mmol/L Carbon Dioxide Pending (21.0-32.0) mmol/L Anion Gap Pending (3-11) mmol/L BUN Pending (7-18) mg/dL Creatinine Pending (0.55-1.02) mg/dL Est GFR (CKD-EPI 2020) Pending (mL/min/1.73m2) Glucose Pending (74-106) mg/dL Calcium Pending (8.5-10.1) mg/dL Magnesium Pending Total Bilirubin Pending (0.2-1.0) mg/dL AST Pending (15-37) U/L ALT Pending (14-59) U/L Alkaline Phosphatase Pending (46-116) U/L Troponin I (< or =60) ng/L Total Protein Pending (6.4-8.2) g/dL Albumin Pending (3.4-5.0) g/dL Procalcitonin ABO/Rh Blood Type Recheck Antibody Screen Crossmatch 01/02/24 01/02/24 01/02/24 Range/Units 03:31 01:30 00:23 WBC 9.37 (4.4-10.8) 10^3/uL RBC 2.54 L (3.93-5.22) 10^6/uL Hgb 7.1 L (11.2-15.7) g/dL Hct 23.0 L (36.0-46.0) % MCV 91 (80-95) fL MCH 28.0 (27.0-33.0) pg MCHC 30.9 L (32.0-36.0) % RDW 18.2 H (11.7-14.6) % Plt Count 219 (130-400) 10^3/uL MPV 10.1 (8.0-11.0) fL Immature Gran % 0.2 % Neutrophils % 67.0 % Lymphocytes % 15.9 % Monocytes % 11.8 % Eosinophils % 4.6 % Basophils % 0.5 % Nucleated RBC % 0.0 (0.0-0.3) % Absolute Neutrophils 6.27 (1.2-6.7) 10^3/uL Absolute Lymphocytes 1.49 (1.2-3.4) 10^3/uL Absolute Monocytes 1.11 H (0.1-0.8) 10^3/uL Absolute Eosinophils 0.43 (0.0-0.7) 10^3/uL Absolute Basophils 0.05 (0.0-0.2) 10^3/uL ESR Pending PT 11.9 H (9.1-11.1) sec INR 1.2 H (0.9-1.1) APTT 27.6 (23.6-32.8) sec VBG Lactate 1.0 (0.6-1.4) mmol/L Sodium 138 (136-145) mmol/L Potassium 3.6 (3.5-5.1) mmol/L Chloride 95 L (98-107) mmol/L Carbon Dioxide 39.7 H (21.0-32.0) mmol/L Anion Gap 3.3 (3-11) mmol/L BUN 31 H (7-18) mg/dL Creatinine 2.1 H (0.55-1.02) mg/dL Est GFR (CKD-EPI 2020) 22.95 (mL/min/1.73m2) Glucose 140 H (74-106) mg/dL Calcium 8.4 L (8.5-10.1) mg/dL Magnesium Total Bilirubin 0.7 (0.2-1.0) mg/dL AST 18 (15-37) U/L ALT 16 (14-59) U/L Alkaline Phosphatase 88 (46-116) U/L Troponin I < 50 (< or =60) ng/L Total Protein 6.0 L (6.4-8.2) g/dL Albumin 2.1 L (3.4-5.0) g/dL Procalcitonin ABO/Rh O Positive Blood Type Recheck O Positive Antibody Screen NEGATIVE Crossmatch See Detail Intake and Output - 24 Hour Total 01/02/24 00:15 thru 01/02/24 00:15 Weight 109.8 kg Falls Risk Assessment History of Falls Previous History 01/02/24 00:23 Contributing Factors Impairments 01/02/24 00:23 Ambulatory Aids Uses ambulatory device + 01/02/24 00:23 Tubes/Lines With any additional score 01/02/24 00:23 Gait Evaluation W/any additional score 01/02/24 00:23 Cognition No cognitive impairment 01/02/24 00:23 Fall Total Score 88 01/02/24 00:23 Level of Risk Maximum Risk 01/02/24 00:23 Problems Depression (Chronic) COPD (chronic obstructive pulmonary disease) (Chronic) Colitis (Acute) Lower GI bleed (Acute) Acute blood loss anemia (Acute) Diverticulosis (Chronic) Chronic atrial fibrillation (Chronic) (HFpEF) heart failure with preserved ejection fraction (Chronic) Notes 01/02/24 01:35 Nursing Notes by Klarissa John Patient had CT Scan prior to EKG being performed. Initialized on 01/02/24 01:35 - END OF NOTE v v v v v v v v v Sending and/or Receiving Nurses: Please use comment section below to note any information pertinent to the patient hand-off not included above. Information / Comments: H&H redrawn prior to coming up to med/surg post infusion of 1 unit PRBC's pitting edema to BLE trace edema to BUE Report received from: Poonam Kraft RN
[2024-01-02] MEDS: Normal Saline 1,000 ML 100 ML IV (04:52)
[2024-01-02] MEDS: Normal Saline Flush 10 ML SYR IVP ×4 (05:52→20:46)
[2024-01-02 08:36] LABS: Lactate 0.6 mmol/L (0.6-1.4)
[2024-01-02 08:39] LABS: ESR 30 mm/hr (0-30)
[2024-01-02 09:04] LABS: ALT 14 U/L (14-59); AST 18 U/L (15-37); Albumin 2.2 g/dL (3.4-5.0); Alkaline Phosphatase 82 U/L (46-116); Anion Gap 2.4 mmol/L (3-11); BUN 30 mg/dL (7-18); CO2 39.6 mmol/L (21.0-32.0); Calcium 8.5 mg/dL (8.5-10.1); Chloride 96 mmol/L (98-107); Estimated GFR 24.33 (mL/min/1.73m2); Glucose 116 mg/dL (74-106); Magnesium 1.8 mg/dL (1.8-2.4); Potassium 3.3 mmol/L (3.5-5.1); Sodium 138 mmol/L (136-145)
[2024-01-02 09:27] LABS: Procalcitonin 0.1 ng/mL
[2024-01-02 09:46] LABS: HCT 24.6 % (36.0-46.0); MCH 28.7 pg (27.0-33.0); MCHC 32.5 % (32.0-36.0); MCV 88 fL (80-95); MPV 10.2 fL (8.0-11.0); Platelet Count 159 10^3/uL (130-400); RBC 2.79 10^6/uL (3.93-5.22); RDW 17.2 % (11.7-14.6); RDW-SD 55.8 fL
[2024-01-02 10:20] LABS: INR 1.3 (0.9-1.1); Prothrombin Time 12.5 sec (9.1-11.1)
[2024-01-02] MEDS: Pantoprazole 40 MG VIAL IVP (10:20)
[2024-01-02] MEDS: Mirabegron 50 MG TABCR PO (10:20)
[2024-01-02] MEDS: Cholecalciferol (Vitamin D3) 1,000 UNIT TAB 1000 UNITS PO (10:21)
[2024-01-02] MEDS: Fluticasone NASAL SPRAY 16 GM BTL NS ×2 (10:24→20:50)
[2024-01-02] MEDS: FLUoxetine 20 MG CAP PO (10:24)
--- NOTE | 2024-01-02 10:48 | SCONE_ITS ---
Date of service: 01/02/24 Time of Service: 10:48 Assessment and Plan Assessment and plan (1) Acute GI bleeding: Status: Acute Assessment and plan: I think the most likely source of her bleeding is hemorrhoids with therapeutic anticoagulation, although diverticulosis is certainly a possibility. I suppose something like ulcerative colitis is also possible, and some of the CT findings may support that diagnosis, but I think the proctitis or colitis seen on the CT scan, could also be very likely a result of stercoral ulceration in a patient with what sounds like pretty significant constipation. In the big picture of things, I think colonoscopy would be the most useful test, however she is severely deconditioned, with ill-defined heart failure, so I think we have some time to sort out her resuscitation and get a better sense of her overall function before exposing her to anesthesia and invasive procedures. In that regard, I backed her diet down to something like a high-protein mostly liquid diet for right now. I will start a bowel regimen to see if we can at least begin the process of emptying all of the stool burden in the colon, in the case that we need to do a more formal prep in the days to come. Absent a leukocytosis, or other compelling sign of infection, I do not think there is need to start an antibiotic at this point. With regard to the cholecystostomy tube. It appears to be in place, and functioning. I can flush it quite easily, and there is bile draining into the bag. Typically, patients with cholecystostomy tubes would undergo definitive cholecystectomy to remove the gallbladder. Although I would consider her extremely high risk for that in her current state. Alternatively, some patients can simply have the tube removed if a cholangiogram appears relatively normal. It sounds like this may have been proposed to her at some point, but without complete records from her previous hospital stays it is a little difficult to understand the decision making leading up to this. For now I would just leave the tube to gravity and flush it with 10 cc of saline solution twice daily. History of Present Illness History of Present Illness Chief Complaint: Rectal bleeding Narrative: Paige is 83 years old. She is transferred over from [facility] and rehab for bleeding. By way of the transfer information, it sounds like the first concern was that this was vaginal bleeding, however on further exam it seems more consistent with rectal bleeding. In the emergency department, hemoglobin was found to be 7.1, and she was transfused blood products and admitted to the hospital. Her past medical history is fairly complicated, and she is not able to shed much light on the exact details. From the medical records, it appears that she was admitted to [facility] in April 2023 with complicated cholecystitis. At some point, she is transferred over to [facility] for what sounds like septic shock. At some point along the way she gets cholecystostomy tube. There is some documentation of colitis at some point during her hospital stay, but it does not appear that she ever underwent any kind of optical interrogation or tissue diagnosis. She thinks that she was just too sick to get any procedures done. Her other medical history includes atrial fibrillation for which she is anticoagulated with apixaban. As I understand, she got a dose of apixaban yesterday. With regards to the subjective history, patient reports chronic constipation, and she says she moves her bowels every few days. She denies any melena or hematochezia in the weeks leading up to this. She does report longstanding chronic hemorrhoids. Especially can remember, at some point yesterday, nurses noticed that she was sitting in some blood. That is what led to her transferred to the emergency department. She does not recall having any pain associated with it, or any need to move her bowels around the time of it. She tells me she has had 2 or maybe 3 colonoscopies in the past. She thinks the last one was a little over 10 years ago. She may have had some polyps removed, but she is not aware of any other diagnoses associated with colonoscopies. Review of Systems Constitutional Constitutional: Denies fever(s), Reports lethargy, Reports poor appetite, Reports weakness and Denies weight loss Eyes Eyes: Reports system reviewed and no additional complaints, except as documented Cardiovascular Cardiovascular: Denies chest pain and Reports dyspnea on exertion Respiratory Respiratory: Reports cough, Reports dyspnea on exertion and Reports wheezing Gastrointestinal Gastrointestinal: Denies abdominal pain, Reports constipation, Denies nausea and Denies vomiting Musculoskeletal Comments: She uses wheelchair Neurologic Neurologic: Reports weakness Hematologic/Lymphatic Hematologic/Lymphatic: Denies easy bleeding and Reports easy bruising Allergic/Immunologic Allergic/Immunologic: Reports wheezing PFSH All Active Problems Edema of left upper extremity (Chronic) Depression (Chronic) COPD (chronic obstructive pulmonary disease) (Chronic) Colitis (Acute) Lower GI bleed (Acute) Acute blood loss anemia (Acute) Diverticulosis (Chronic) Chronic atrial fibrillation (Chronic) Acute GI bleeding (Acute) Anticoagulant long-term use (Acute) Anemia (Chronic) (HFpEF) heart failure with preserved ejection fraction (Chronic) Social History Smoking/Tobacco Use Status: Former Tobacco Use Smoking risk assessment performed?: Yes Housing: long term Exam Const General: cooperative and frail appearing Nutritional Appearance: obese Orientation: alert and awake HENMT Head: normal to inspection Eyes General: appearance normal, both eyes and all related structures Neck Neck: normal visual inspection and full ROM GI Inspection: non-distended Palpation: soft, no guarding and no hernias Rectal Exam - female: No fissure and hemorrhoids Other: She has a cholecystostomy tube in place Extrem Right lower extremity: edema Left lower extremity: edema Results Last Vital Signs Temp 97.3 F L 01/02/24 07:20 Pulse 84 01/02/24 07:20 Resp 17 01/02/24 07:20 BP 116/68 01/02/24 07:20 Pulse Ox 96 01/02/24 07:20 Labs 01/02/24 08:24 01/02/24 08:24 Labs: Laboratory Results - last 24 hr 01/02/24 01/02/24 01/02/24 00:23 01:30 04:15 WBC 9.37 8.32 RBC 2.54 L 2.87 L Hgb 7.1 L 8.1 L Hct 23.0 L 25.8 L MCV 91 90 MCH 28.0 28.2 MCHC 30.9 L 31.4 L RDW 18.2 H 17.2 H Plt Count 219 188 MPV 10.1 9.8 Immature Gran % 0.2 Neutrophils % 67.0 Lymphocytes % 15.9 Monocytes % 11.8 Eosinophils % 4.6 Basophils % 0.5 Nucleated RBC % 0.0 Absolute Neutrophils 6.27 Absolute Lymphocytes 1.49 Absolute Monocytes 1.11 H Absolute Eosinophils 0.43 Absolute Basophils 0.05 ESR PT 11.9 H INR 1.2 H APTT 27.6 VBG Lactate 1.0 Sodium 138 Potassium 3.6 Chloride 95 L Carbon Dioxide 39.7 H Anion Gap 3.3 BUN 31 H Creatinine 2.1 H Est GFR (CKD-EPI 2020) 22.95 Glucose 140 H Calcium 8.4 L Magnesium Total Bilirubin 0.7 AST 18 ALT 16 Alkaline Phosphatase 88 Troponin I < 50 Total Protein 6.0 L Albumin 2.1 L Procalcitonin ABO/Rh O Positive Blood Type Recheck O Positive Antibody Screen NEGATIVE Crossmatch See Detail 01/02/24 01/02/24 08:24 09:58 WBC 6.70 RBC 2.79 L Hgb 8.0 L Hct 24.6 L MCV 88 MCH 28.7 MCHC 32.5 RDW 17.2 H Plt Count 159 MPV 10.2 Immature Gran % Neutrophils % Lymphocytes % Monocytes % Eosinophils % Basophils % Nucleated RBC % Absolute Neutrophils Absolute Lymphocytes Absolute Monocytes Absolute Eosinophils Absolute Basophils ESR 30 PT Cancelled 12.5 H INR Cancelled 1.3 H APTT VBG Lactate 0.6 Sodium 138 Potassium 3.3 L Chloride 96 L Carbon Dioxide 39.6 H Anion Gap 2.4 L BUN 30 H Creatinine 2.0 H Est GFR (CKD-EPI 2020) 24.33 Glucose 116 H Calcium 8.5 Magnesium 1.8 Total Bilirubin 1.0 AST 18 ALT 14 Alkaline Phosphatase 82 Troponin I Total Protein 6.0 L Albumin 2.2 L Procalcitonin 0.1 ABO/Rh Blood Type Recheck Antibody Screen Crossmatch
[2024-01-02] MEDS: Alteplase 2 MG VIAL IJ (11:53)
[2024-01-02] MEDS: Water,Injection,Sterile 10 ML VIAL (11:59)
--- NOTE | 2024-01-02 12:24 | PGE_ITS ---
Date of Service Date of service: 01/02/24 Time of Service: 12:24 Assessment and Plan Assessment and plan (1) Acute blood loss anemia: Start date: 01/01/24 Status: Acute Assessment and plan: Holding apixaban. Hemodynamics and hemoglobin stable after 1 unit. No further bleeding noted. not symptomatic in terms of anemia. Will extend lab interval. See below. (2) Lower GI bleed: Status: Acute Assessment and plan: Had diverticulosis on CT scan, but per Dr. Santa likely internal hemorrhoidal. Recommending to defer colonooscopy until more clinically stable unless emergent. Okay to progress diet. (3) Colitis: Status: Acute Assessment and plan: Patient did have left lower quadrant tenderness which has improved and CT scans indicating diverticulosis but no diverticulitis or abscess but c/w colitis. ESR, WBC, procalcitonin do not suggest acute infection/inflammation. Per Dr. Santa colitis could be related to constipation. No antibiotics for now, continue to obvserve. (4) Chronic atrial fibrillation: Status: Chronic Assessment and plan: On Eliquis which will be held with patient to return to anticoagulation once stabilized. Rate control with metoprolol (5) (HFpEF) heart failure with preserved ejection fraction: Status: Chronic Assessment and plan: Diuretics held on admission due to low blood pressure, BP still soft but some rales in bases of lungs so will stop IV NS. Monitor. Qualifiers: Heart failure chronicity: chronic Qualified Code(s): I50.32 - Chronic diastolic (congestive) heart failure (6) COPD (chronic obstructive pulmonary disease): Status: Chronic Assessment and plan: Not active clinically. Continue outpatient medical therapy and monitor symptoms. Continue LAMA Qualifiers: COPD type: unspecified COPD Qualified Code(s): J44.9 - Chronic obstructive pulmonary disease, unspecified (7) Hypokalemia: Status: Acute Assessment and plan: replace this morning, follow (8) Left arm pain: Status: Acute Assessment and plan: I don't appreciate swelling. The PICC puts her at risk for UE DVT but it is on the opposite side of her pain. Her exam is not c/w clot, but is c/w subacromial bursitis. APAP prn for now, can consdier lidocaine/steroid injection for diagnostic/therapeutic trial. Subjective Subjective Patient reports: voiding w/o difficulty; denies vomiting, shortness of breath or fever Interval history since last seen: ID: 83-year-old lady with recurrent complications of an abscess gallbladder every hospitalizations for sepsis and infection requiring chronic PICC line in her right upper chest as well as a chronic cholecystostomy tube draining and right upper quadrant No further bloody stools. Her shoulder and upper arm hurts with any movement. A little nausea this morning but not now. Not much appetite. Not dizzy, but has taken fluids. Exam Narrative Exam Narrative: General: Alert and oriented, laying in bed, able to sit up with help, no acute distress. Lungs: Normal effort, bilateral basilar rales. Heart: Irregular irregular rhythm with 3/6 systolic murmur left arm border. No gallops or rubs. Abdomen: Soft to palpation, not tender. Cholecystostomy tube in the right upper abdomen draining bilious fluid. Extremities: Without clubbing, cyanosis. Trace bilateral edema in feet. No edema in upper extremities. No cords or tenderness in left upper arm to neck. She does have pain with abduction and internal rotation and positive impingement on [place]. Skin: Pale, warm and dry. Catheter in right upper chest, appears benign. Psych: Slightly flattened affect with depressed mood, but interactive. No abnormal thought processes. Remote and recent memory intact. Objective Last Vital Signs Temp 36.1 C L 01/02/24 10:59 Pulse 77 01/02/24 10:59 Resp 16 01/02/24 10:59 BP 99/77 L 01/02/24 10:59 Pulse Ox 99 01/02/24 10:59 Laboratory Results - last 24 hr 01/02/24 01/02/24 01/02/24 00:23 01:30 04:15 WBC 9.37 8.32 RBC 2.54 L 2.87 L Hgb 7.1 L 8.1 L Hct 23.0 L 25.8 L MCV 91 90 MCH 28.0 28.2 MCHC 30.9 L 31.4 L RDW 18.2 H 17.2 H Plt Count 219 188 MPV 10.1 9.8 Immature Gran % 0.2 Neutrophils % 67.0 Lymphocytes % 15.9 Monocytes % 11.8 Eosinophils % 4.6 Basophils % 0.5 Nucleated RBC % 0.0 Absolute Neutrophils 6.27 Absolute Lymphocytes 1.49 Absolute Monocytes 1.11 H Absolute Eosinophils 0.43 Absolute Basophils 0.05 ESR PT 11.9 H INR 1.2 H APTT 27.6 VBG Lactate 1.0 Sodium 138 Potassium 3.6 Chloride 95 L Carbon Dioxide 39.7 H Anion Gap 3.3 BUN 31 H Creatinine 2.1 H Est GFR (CKD-EPI 2020) 22.95 Glucose 140 H Calcium 8.4 L Magnesium Total Bilirubin 0.7 AST 18 ALT 16 Alkaline Phosphatase 88 Troponin I < 50 Total Protein 6.0 L Albumin 2.1 L Procalcitonin ABO/Rh O Positive Blood Type Recheck O Positive Antibody Screen NEGATIVE Crossmatch See Detail 01/02/24 01/02/24 01/02/24 08:24 09:58 15:30 WBC 6.70 Cancelled RBC 2.79 L Cancelled Hgb 8.0 L Cancelled Hct 24.6 L Cancelled MCV 88 Cancelled MCH 28.7 Cancelled MCHC 32.5 Cancelled RDW 17.2 H Cancelled Plt Count 159 Cancelled MPV 10.2 Cancelled Immature Gran % Neutrophils % Lymphocytes % Monocytes % Eosinophils % Basophils % Nucleated RBC % Absolute Neutrophils Absolute Lymphocytes Absolute Monocytes Absolute Eosinophils Absolute Basophils ESR 30 PT Cancelled 12.5 H INR Cancelled 1.3 H APTT VBG Lactate 0.6 Sodium 138 Potassium 3.3 L Chloride 96 L Carbon Dioxide 39.6 H Anion Gap 2.4 L BUN 30 H Creatinine 2.0 H Est GFR (CKD-EPI 2020) 24.33 Glucose 116 H Calcium 8.5 Magnesium 1.8 Total Bilirubin 1.0 AST 18 ALT 14 Alkaline Phosphatase 82 Troponin I Total Protein 6.0 L Albumin 2.2 L Procalcitonin 0.1 ABO/Rh Blood Type Recheck Antibody Screen Crossmatch 01/02/24 21:30 WBC Cancelled RBC Cancelled Hgb Cancelled Hct Cancelled MCV Cancelled MCH Cancelled MCHC Cancelled RDW Cancelled Plt Count Cancelled MPV Cancelled Immature Gran % Neutrophils % Lymphocytes % Monocytes % Eosinophils % Basophils % Nucleated RBC % Absolute Neutrophils Absolute Lymphocytes Absolute Monocytes Absolute Eosinophils Absolute Basophils ESR PT INR APTT VBG Lactate Sodium Potassium Chloride Carbon Dioxide Anion Gap BUN Creatinine Est GFR (CKD-EPI 2020) Glucose Calcium Magnesium Total Bilirubin AST ALT Alkaline Phosphatase Troponin I Total Protein Albumin Procalcitonin ABO/Rh Blood Type Recheck Antibody Screen Crossmatch Time Spent with Patient Time Spent with Patient: 35-49 minutes Time was spent: preparing to see the patient(eg.review tests), obtaining and/or reviewing separately otained hiistory, ordering medications,tests, procedures, referring, communicating with other health respiratory care assistant, indepentently interpreting results and counseling the patient
--- NOTE | 2024-01-02 12:27 | PDOC.CMIN ---
Date of service: 01/02/24 Time of Service: 12:27 Care Management Initial Assmt Initial Assessment Reason for Hospitalization: Acute Blood loss anemia, lower GI bleed, colitis Functional Status/Living Situation Patient Presentation: Paige presents from [facility], just four days post discharge from [facility]. She was sleeping soundly in the afternoon; CM did not disturb her. Town of Residence: [facility] Resides with: Other (SNF) Significant Other/Family: Local Caregiver/Guardian: KimberlyRichard Jean in [place] Employment Status: Retired Instrumental Activities of Daily Living (ADLs): Requires support (All ADLs, Oxygen, PT, OT, repositioning ) Physical Functioning/Mobility Assistive Device: Wheelchair, resides at [facility] Advance Directives Advance Directives: Do you have an Advance Directive: Y 01/02/24 03:32 AD On File at [facility]: Y 01/02/24 03:32 Date Asked 01/02/24 01/02/24 03:32 AD Date Reviewed 01/02/24 01/02/24 07:32 COLST On File at [facility] COLST Date Scanned Comment: Kimberly GraffRichard [place] Code Status Resuscitation Status Full Code Portal Pt does not currently have a portal and education provided: No Portal Education: Patient declined Insurance Coverage/Financial Issues Insurance: Medicare Medicaid ACO Member: No Care Team Visit Care Team Role Provider Type Blade Thayer Primary Care Provider NON-[facility] STAFF PHYSICIAN Suraj Santa MD Other Providers [facility] STAFF PHYSICIAN Shanna Spence MD Emergency Provider [facility] STAFF PHYSICIAN Wojciech Srinivasan Admit Provider NON-[facility] STAFF PHYSICIAN Attending Provider Discharge Potential Discharge Needs: Consult (Surgical ) Anticipated Barriers to Discharge: Bed availability (Coordinated return to [facility] on iday ()) Patient/Family Education Needs: Review discharge instructions, discuss Ask Me Three Transportation: Facility Transport Plan: Paige will return to [facility] when medically ready, via EMS or via W/C van; dependent on mobility. CM following. PFSH All Active Problems (Updated 01/02/24 @ 12:55 by Jhony Cho) Left arm pain (Acute) Hypokalemia (Acute) Edema of left upper extremity (Chronic) Depression (Chronic) COPD (chronic obstructive pulmonary disease) (Chronic) Colitis (Acute) Lower GI bleed (Acute) Acute blood loss anemia (Acute) Diverticulosis (Chronic) Chronic atrial fibrillation (Chronic) Acute GI bleeding (Acute) Anticoagulant long-term use (Acute) Anemia (Chronic) (HFpEF) heart failure with preserved ejection fraction (Chronic) Social History Smoking/Tobacco Use Status: Former Tobacco Use Smoking risk assessment performed?: Yes Housing: [facility] SDOH(Care Management) Screening Will the Patient Participate in the Screening?: Unable to obtain
[2024-01-02] MEDS: POTASSIUM CHLORIDE 20 MEQ/100 ML BAG 50 MEQ IVINF (12:47)
[2024-01-02] MEDS: Tiotropium Bromide-Respimat 10 PUFF INH 2 PUFF IH (12:47)
[2024-01-02 16:35] LABS: HCT 25.2 % (36.0-46.0); HGB 7.9 g/dL (11.2-15.7)
[2024-01-02] MEDS: Enoxaparin 30 MG/0.3 ML SYR SC (17:27)
--- NOTE | 2024-01-02 20:36 | RESPIRATORY ---
RT seen pt. for oxygen assessment, during assessment pt. states she uses CPAP with supplemental of O2 2L/min through [facility]. Pt. states her CPAP machine provide continues pressure of up to 12 cm H2O. Pt. has accepted to use the hospital's CPAP tonight and advises that one of her rehaf staffs will bring it by tomorrow if she is going to stay more nights. RT will initiate CPAP by matching her home CPAP settings.
[2024-01-02] MEDS: Docusate Sodium 100 MG CAP PO (20:44)
[2024-01-02] MEDS: Atorvastatin 20 MG TAB PO (20:44)
[2024-01-02] MEDS: traZODone 50 MG TAB PO (20:45)
[2024-01-02] MEDS: Preparation H 28 GM TUBE PR (20:45)
[2024-01-02] MEDS: Ondansetron 4 MG/2 ML VIAL IVP (20:46)
[2024-01-03] VITALS (12 sets, daily range): BP systolic 96–127; BP diastolic 64–81; PULSE 77–99; RESP 18–26; TEMP 36–36.7; O2SAT 96–99
[2024-01-03] MEDS: Metoprolol 25 MG TAB PO ×3 (06:24→18:11)
[2024-01-03] MEDS: Pantoprazole 40 MG VIAL IVP (08:15)
[2024-01-03] MEDS: Normal Saline Flush 10 ML SYR IVP ×3 (08:15→20:33)
[2024-01-03] MEDS: Cholecalciferol (Vitamin D3) 1,000 UNIT TAB 1000 UNITS PO (08:16)
[2024-01-03] MEDS: Docusate Sodium 100 MG CAP PO ×2 (08:16→20:18)
[2024-01-03] MEDS: Mirabegron 50 MG TABCR PO (08:16)
[2024-01-03] MEDS: FLUoxetine 20 MG CAP PO (08:16)
[2024-01-03] MEDS: Polyethylene Glycol 3350 17 GM PACKET PO (08:16)
--- NOTE | 2024-01-03 08:39 | W.PM.PROGNOT ---
Date of Service Date of service: 01/03/24 Time of Service: 08:39 Assessment and Plan Assessment and plan (1) Lower GI bleed: Status: Acute Assessment and plan: At the current time, there is no evidence of any active bleeding. Although, this is obviously complicated by the fact that we are holding her Eliquis. I am a little disappointed that she is not having more frequent bowel movements. I will add a dose of lactulose today to see if we can help promote more stool. I would like to hold the Eliquis another day, and see how she responds to the lactulose. It might be useful to get an echo here to assess her cardiac function anticipating colonoscopy this week. Alternatively, if the hemoglobin remained stable, and there are no other clinical signs of bleeding, she can probably go back to the rehabilitation center, and we can manage this as an outpatient. Subjective Subjective Interval history since last seen: Paige says she feels about the same. She is tolerating her breakfast without any specific complaints. She says she is passing some gas this morning, and she cannot recall whether or not she had a bowel movement yesterday. She denies any bleeding per rectum. Exam GI Other: Abdomen is soft and nondistended. She is not tender. Objective Last Vital Signs Temp 96.8 F L 01/03/24 07:34 Pulse 82 01/03/24 07:34 Resp 19 01/03/24 07:34 BP 109/64 01/03/24 07:34 Pulse Ox 97 01/03/24 07:34 Laboratory Results - last 24 hr 01/02/24 01/02/24 01/02/24 08:24 09:58 15:30 WBC 6.70 Cancelled RBC 2.79 L Cancelled Hgb 8.0 L Cancelled Hct 24.6 L Cancelled MCV 88 Cancelled MCH 28.7 Cancelled MCHC 32.5 Cancelled RDW 17.2 H Cancelled Plt Count 159 Cancelled MPV 10.2 Cancelled ESR 30 PT Cancelled 12.5 H INR Cancelled 1.3 H VBG Lactate 0.6 Sodium 138 Potassium 3.3 L Chloride 96 L Carbon Dioxide 39.6 H Anion Gap 2.4 L BUN 30 H Creatinine 2.0 H Est GFR (CKD-EPI 2020) 24.33 Glucose 116 H Calcium 8.5 Magnesium 1.8 Total Bilirubin 1.0 AST 18 ALT 14 Alkaline Phosphatase 82 Total Protein 6.0 L Albumin 2.2 L Procalcitonin 0.1 01/02/24 01/02/24 16:15 21:30 WBC Cancelled RBC Cancelled Hgb 7.9 L Cancelled Hct 25.2 L Cancelled MCV Cancelled MCH Cancelled MCHC Cancelled RDW Cancelled Plt Count Cancelled MPV Cancelled ESR PT INR VBG Lactate Sodium Potassium Chloride Carbon Dioxide Anion Gap BUN Creatinine Est GFR (CKD-EPI 2020) Glucose Calcium Magnesium Total Bilirubin AST ALT Alkaline Phosphatase Total Protein Albumin Procalcitonin Time Spent with Patient Time Spent with Patient: 25-34 minutes Time was spent: preparing to see the patient(eg.review tests), ordering medications,tests, procedures, indepentently interpreting results and counseling the patient
--- NOTE | 2024-01-03 09:30 | IN_ITS ---
PT Notes Visit Reasons: Acute blood loss anemia, Lower GI bleed, Colitis Physical Therapy Inpatient Initial Evaluation Date: 01/03/24 Referring Doctor: Jhony Cho MD PT Orders: PT CONSULT: Safety Consult for D/C, Fall Safety Assessment Precautions: Fall. Standard. Activity as tolerated. Patient Profile/Admitting Diagnosis: Paige is an 83 yo female that presented to the ER from [facility] on 01/01/25 for perineal region bleeding that was thought to be vaginal, but determined likely rectal. PMHX: See EMR Social History/Home Situation: [facility]. Reports using noemí lift. Unclear what her baseline function is, but indicates was living in apartment alone and using wheelchair or 4WW. Had elevator. Equipment Owned/DME: Wheelchair, 4WW. Subjective: Cleared by nursing to see patient and patient is agreeable to PT. Patient is lying in bed at time of consult and connected to telemetry. Was not on oxygen at time of entering room as was turned off and put on wall, but patient inquired. Nursing reports she had it on early and should still be using. 2L O2 via NC was put back on. Objective: General Observation: Drowsy, reports short of breath Mental Status: A&O x3 Pain: None ROM: Right Upper Extremity: Limited shoulder ROM Left Upper Extremity: Limited shoulder ROM Right Lower Extremity: Limited overall LE ROM Left Lower Extremity: Limited overall LE ROM Strength: Right Upper Extremity: Grossly 3/5 Left Upper Extremity: Grossly 3/5 Right Lower Extremity: Grossly 3/5 Left Lower Extremity: Grossly 3/5 Sensation: Intact as to pain and pressure on bilateral lower extremities. Bed Mobility/Transfers: Rolling: Min A Supine to sit: 2 person Mod A Sit to supine: Min A (needs 2 person max A for repositioning) Sit to stand: Unable Gait: Unable Balance: Static Sitting: Fair Dynamic Sitting: Poor Static Standing: Unable to assess Dynamic Standing: Unable to assess Therapeutic Activity (27509) dynamic movement and functional strengthening to improve physical performance: 18 minutes Supine to sit transfer x3 with sitting semi edge of bed Special Tests: Mobility Limitations Standardized Measure [facility] AM-PAC 6 clicks Basic Mobility Inpatient Short Form: Raw Score: 7 CMS Score: 92% Informed Consent/Education: Patient instructed in purpose of PT consult and plan of care. Assessment: Paige requires assist with all ADLs. She is able to assist with sitting up in bed, but needs help to get started. Has a lot of belching while sitting up and reports dizziness. Her eyes do roll and drifts back to lying down. Her BP was taken twice demonstrating 109/66mmHg and 113/67mmHg. Her SaO2 was generally 98- 100%, but did dip into the 80's at one point. No real independent mobility at this time. She will benefit from acute care PT services and recommend discharge back to SNF. Patient presents with clinical signs and symptoms consistent with current/admitting diagnoses that have resulted to mobility limitations, gait instability, generalized weakness, and impairment of motor control as demonstrated by the following impairment level findings: 1. Decreased strength to all major muscle groups 2. Impaired sitting/standing balance 3. Impaired activity tolerance 4. Limitation of joint range of motion in major joints Impairments are contributing to the following functional limitations: 1. Dependent bed mobility skills 2. Increased dependence with transfers 3. Inability to safely ambulate without assistive device and physical assistance 4. Increase completion time for mobility ADL performance 5. Increased fall risk Patient is assessed as a High complexity based on the following: History: 83 year old female with impairment level findings, functional limitations, and past medical history as indicated above Examination: Demonstrable impairment in strength, balance, and mobility level with underlying impairments and functional limitations as documented above Presentation: Evolving Decision Making: High complexity Goals: Goals x1 week 1. Supine-Sit: Min A 2. Sit-Supine: Supervision 3. Sit-Stand: Mod A 4. Stand-Sit: Min A 5. Bed-Chair: Min A 6. Chair-Bed: Min A Plan of Care/Treatment Plan: 1-2x/day, 7 days/week x1 week. Plan of care has been reviewed with the CHRONIC CARE NURSE providing the service under Physical Therapy direction. Initiate Physical Therapy intervention for strengthening, bed mobility, transfers, gait, stairs, balance training, and use of assistive device. Discharge Plan DISCHARGE RECOMMENDATIONS: SNF for continued rehabilitation TREATMENT CODE/TIME: 8:56-9:37 (41 minutes), [id number], [id number] Thank you for the opportunity to participate in the care of this patient. Sully Chen, PT, DPT, OCS [facility] [place], [place]
[2024-01-03 10:04] LABS: HCT 23.9 % (36.0-46.0); HGB 7.6 g/dL (11.2-15.7)
[2024-01-03 10:11] LABS: BUN 27 mg/dL (7-18); CREATININE 2.1 mg/dL (0.55-1.02); Calcium 8.4 mg/dL (8.5-10.1); Chloride 98 mmol/L (98-107); Estimated GFR 22.95 (mL/min/1.73m2); Glucose 129 mg/dL (74-106); Potassium 3.3 mmol/L (3.5-5.1); Sodium 139 mmol/L (136-145)
[2024-01-03] MEDS: Lactulose 20 GM/30 ML CUP PO (13:09)
[2024-01-03] MEDS: Preparation H 28 GM TUBE PR (13:12)
[2024-01-03] MEDS: Acetaminophen 325 MG TAB PO (16:29)
--- NOTE | 2024-01-03 16:48 | PGE_ITS ---
Date of Service Date of service: 01/03/24 Time of Service: 16:48 Assessment and Plan Assessment and plan (1) Acute blood loss anemia: Start date: 01/01/24 Status: Acute Assessment and plan: Holding apixaban. Hemodynamics and hemoglobin stable after 1 unit. No further bleeding noted. not symptomatic in terms of anemia. See below. (2) Lower GI bleed: Status: Acute Assessment and plan: Had diverticulosis on CT scan, but per Dr. Santa likely internal hemorrhoidal. Recommending to defer colonooscopy until more clinically stable unless emergent. Progressing diet. I appreciate Dr. Santa's input, consider echocardiogram Thursday before I plan to continue holding apixaban until source of bleed identified. (3) Colitis: Status: Acute Assessment and plan: Patient did have left lower quadrant tenderness which has improved and CT scans indicating diverticulosis but no diverticulitis or abscess but c/w colitis. ESR, WBC, procalcitonin do not suggest acute infection/inflammation. Per Dr. Santa colitis could be related to constipation, he gave additional bowel regimen today. No antibiotics for now, continue to observe. (4) Chronic atrial fibrillation: Status: Chronic Assessment and plan: On Eliquis which will be held with patient to return to anticoagulation once stabilized. Rate control with metoprolol (5) (HFpEF) heart failure with preserved ejection fraction: Status: Chronic Assessment and plan: Diuretics held on admission due to low blood pressure, BP stable off IV fluids. Rales have improved. Qualifiers: Heart failure chronicity: chronic Qualified Code(s): I50.32 - Chronic diastolic (congestive) heart failure (6) COPD (chronic obstructive pulmonary disease): Status: Chronic Assessment and plan: Not active clinically. Continue outpatient medical therapy and monitor symptoms. Continue LAMA Qualifiers: COPD type: unspecified COPD Qualified Code(s): J44.9 - Chronic obstructive pulmonary disease, unspecified (7) Hypokalemia: Status: Acute Assessment and plan: replace again today, conservatively given CKD, follow (8) Left arm pain: Status: Acute Assessment and plan: Still not signs of clot or local infection. Now with other MSK pain in hip/knee. APAP prn for now, low dose hydromorphone if this doesn't work (avoid NSAID with low GFR). Can consdier lidocaine/steroid injection for diagnostic/therapeutic trial. Subjective Subjective Patient reports: voiding w/o difficulty; denies diarrhea, vomiting, shortness of breath or fever Interval history since last seen: Abdomen isn't bothering her, but having pain in her left knee, hip, and shoulder. She did eat but not much. No blood in stool. Exam Narrative Exam Narrative: General: Alert and oriented, laying in bed, able to sit up with help, looks more uncomfortable today but no acute distress. Lungs: Normal effort, CTAB with just slight basilar rales. Heart: Irregular irregular rhythm with 2/6 systolic murmur left arm border. No gallops or rubs. Abdomen: Soft to palpation, not tender. Cholecystostomy tube in the right upper abdomen draining bilious fluid. Extremities: Trace bilateral edema in feet. No edema in upper extremities. No cords or tenderness in left upper arm to neck. no joint redness or swelling or severe pain with ROM knee/hip, + pain with abduction left shoulder Skin: Pale, warm and dry. Catheter in right upper chest, appears benign. Objective Last Vital Signs Temp 36.7 C 01/03/24 15:40 Pulse 85 01/03/24 15:40 Resp 19 01/03/24 15:40 BP 127/81 01/03/24 15:40 Pulse Ox 96 01/03/24 15:40 Laboratory Results - last 24 hr 01/03/24 09:50 Hgb 7.6 L Hct 23.9 L Sodium 139 Potassium 3.3 L Chloride 98 Carbon Dioxide 37.0 H Anion Gap 4.0 BUN 27 H Creatinine 2.1 H Est GFR (CKD-EPI 2020) 22.95 Glucose 129 H Calcium 8.4 L Time Spent with Patient Time Spent with Patient: 35-49 minutes Time was spent: preparing to see the patient(eg.review tests), obtaining and/or reviewing separately otained hiistory, ordering medications,tests, procedures, referring, communicating with other health child caregiver private home, indepentently interpreting results and counseling the patient
[2024-01-03] MEDS: POTASSIUM CHLORIDE 20 MEQ/100 ML BAG 50 MEQ IVINF (17:04)
[2024-01-03] MEDS: Enoxaparin 30 MG/0.3 ML SYR SC (18:11)
[2024-01-03] MEDS: Potassium Chloride 20 MEQ TABCR PO (20:18)
[2024-01-03] MEDS: Atorvastatin 20 MG TAB PO (20:18)
[2024-01-03] MEDS: traZODone 50 MG TAB PO (20:19)
[2024-01-04] VITALS (8 sets, daily range): BP systolic 123–134; BP diastolic 75–86; PULSE 63–86; RESP 10–22; TEMP 35.8–37; O2SAT 95–100
[2024-01-04] MEDS: Metoprolol 25 MG TAB PO ×4 (05:43→17:35)
[2024-01-04 07:10] LABS: HGB 7.5 g/dL (11.2-15.7)
[2024-01-04 07:20] LABS: Anion Gap -3.3 mmol/L (3-11); BUN 24 mg/dL (7-18); CO2 39.3 mmol/L (21.0-32.0); CREATININE 1.9 mg/dL (0.55-1.02); Calcium 8.4 mg/dL (8.5-10.1); Chloride 101 mmol/L (98-107); Estimated GFR 25.88 (mL/min/1.73m2); Glucose 87 mg/dL (74-106); Magnesium 1.9 mg/dL (1.8-2.4); Potassium 3.7 mmol/L (3.5-5.1); Sodium 137 mmol/L (136-145)
[2024-01-04] MEDS: FLUoxetine 20 MG CAP PO (08:24)
[2024-01-04] MEDS: Mirabegron 50 MG TABCR PO (08:25)
[2024-01-04] MEDS: Fluticasone NASAL SPRAY 16 GM BTL NS ×2 (08:25→20:32)
[2024-01-04] MEDS: Cholecalciferol (Vitamin D3) 1,000 UNIT TAB 1000 UNITS PO (08:25)
[2024-01-04] MEDS: Preparation H 28 GM TUBE PR ×2 (08:25→20:32)
[2024-01-04] MEDS: Normal Saline Flush 10 ML SYR IVP ×3 (08:26→20:31)
[2024-01-04] MEDS: Nystatin CREAM 15 GM TUBE TP ×2 (08:27→20:31)
[2024-01-04] MEDS: Pantoprazole 40 MG VIAL IVP (08:41)
[2024-01-04] MEDS: Tiotropium Bromide-Respimat 10 PUFF INH 2 PUFF IH (08:52)
--- NOTE | 2024-01-04 09:09 | PT.INTREAT ---
PT Notes Visit Reasons: Acute blood loss anemia, Lower GI bleed, Colitis Inpatient Physical Therapy Treatment Note [facility] Date: 01/04/24 SUBJECTIVE:Paige lying in bed taking her meds. She is on 2L of O2. Somewhat agreeable to PT. I'll try to do some. Refused to get OOB. OBJECTIVE: []? VITALS: ? monitored by nsg? Therapeutic Exercises (04856c1): Direct one-on-one instruction in therapeutic exercises to develop strength, endurance, range of motion and flexibility. ? Exercises ?AP, hip ab/add, SAQ and glute sets x10 each. Assisted SLR x5 each. Paige had enough. ASSESSMENT: tolerated session fair. Requires rest breaks frequently t/o due to fatigue. She did all that was asked of her but not very motivated. PLAN: will continue to work on her strength, while improving her functional mobility. TREATMENT CODE/TIME: 15 min. [id number]
[2024-01-04] MEDS: Acetaminophen 325 MG TAB PO (13:25)
--- NOTE | 2024-01-04 13:40 | W.PM.PROGNOT ---
Date of Service Date of service: 01/04/24 Time of Service: 13:40 Assessment and Plan Assessment and plan (1) Lower GI bleed: Status: Acute Assessment and plan: Bleeding seems to be resolved after cessation of anticoagulation. Certainly, the urgency for colonoscopy is decreased a bit. However, I would like to formalize diagnosis prior to discharge if at all possible. Will get an echo tomorrow and see what the cardiac function is. We can then have a more informed discussion with her regarding the risks and the benefits of colonoscopy to help confirm the diagnosis. Subjective Subjective Interval history since last seen: Paige says she is feeling about the same as she did yesterday. She says that she is passing some flatus today, but she is not sure if she has had any bowel movements. She is pretty certain that she has had no more episodes of bleeding. Exam GI Other: Abdomen soft and nontender. She is not distended. Objective Last Vital Signs Temp 97.9 F 01/04/24 11:12 Pulse 80 01/04/24 11:12 Resp 18 01/04/24 11:12 BP 123/75 01/04/24 11:12 Pulse Ox 100 01/04/24 11:12 Laboratory Results - last 24 hr 01/04/24 07:00 Hgb 7.5 L Hct 24.0 L Sodium 137 Potassium 3.7 Chloride 101 Carbon Dioxide 39.3 H Anion Gap -3.3 L BUN 24 H Creatinine 1.9 H Est GFR (CKD-EPI 2020) 25.88 Glucose 87 Calcium 8.4 L Magnesium 1.9 Time Spent with Patient Time Spent with Patient: <25 minutes Time was spent: preparing to see the patient(eg.review tests), referring, communicating with other health vision care associate, indepentently interpreting results and counseling the patient
--- NOTE | 2024-01-04 14:28 | W.PM.PROGNOT ---
Date of Service Date of service: 01/04/24 Time of Service: 14:29 Assessment and Plan Assessment and plan (1) Acute blood loss anemia: Status: Acute Assessment and plan: Holding apixaban. Hemodynamics and hemoglobin stable after 1 unit. No further bleeding noted. not symptomatic in terms of anemia. surgery following. (2) Lower GI bleed: Status: Acute Assessment and plan: Had diverticulosis on CT scan, but per Dr. Santa likely internal hemorrhoidal. Recommending to defer colonooscopy until more clinically stable unless emergent. Progressing diet. awaiting echocardiogram continue holding apixaban until source of bleed identified. (3) Colitis: Status: Acute Assessment and plan: Patient did have left lower quadrant tenderness which has improved and CT scans indicating diverticulosis but no diverticulitis or abscess but c/w colitis. ESR, WBC, procalcitonin do not suggest acute infection/inflammation. Per Dr. Santa colitis could be related to constipation, he gave additional bowel regimen today. No antibiotics for now, continue to observe. (4) Chronic atrial fibrillation: Status: Chronic Assessment and plan: was on Eliquis which will be held with patient to return to anticoagulation once stabilized. Rate control with metoprolol (5) (HFpEF) heart failure with preserved ejection fraction: Status: Chronic Assessment and plan: Diuretics held on admission due to low blood pressure, BP stable off IV fluids. Rales have improved. Qualifiers: Heart failure chronicity: chronic Qualified Code(s): I50.32 - Chronic diastolic (congestive) heart failure (6) COPD (chronic obstructive pulmonary disease): Status: Chronic Assessment and plan: Not active clinically. Continue outpatient medical therapy and monitor symptoms. Continue LAMA Qualifiers: COPD type: unspecified COPD Qualified Code(s): J44.9 - Chronic obstructive pulmonary disease, unspecified (7) Hypokalemia: Status: Acute Assessment and plan: normalized. continue to follow (8) Left arm pain: Status: Acute Assessment and plan: Still not signs of clot or local infection. Now with other MSK pain in hip/knee. APAP prn for now, low dose hydromorphone if this doesn't work (avoid NSAID with low GFR). Can consider lidocaine/steroid injection for diagnostic/therapeutic trial. discussed with DR Cho Subjective Subjective Patient reports: no new complaints and afebrile Interval history since last seen: fatigued, Exam Const General: no acute distress and ill appearing acutely Nutritional Appearance: obese Orientation: awake and oriented x3 HENMT Head: normal to inspection, normocephalic and atraumatic Face and sinus: normal facial exam Mouth: oral mucosae normal Neck Neck: normal visual inspection and no JVD Chest Chest: normal inspection of the chest Resp Effort & Inspection: normal respiratory effort Cardio Rate: regular rate Rhythm: regular rhythm GI Inspection: normal to inspection Palpation: soft, not rigid and nontender Skin General skin exam: no rashes or lesions noted Neuro General: patient alert, patient awake, patient oriented x3, tone normal and no focal motor deficits Extrem General: normal to inspection and full ROM Objective Last Vital Signs Temp 36.6 C 01/04/24 11:12 Pulse 80 01/04/24 11:12 Resp 18 01/04/24 11:12 BP 123/75 01/04/24 11:12 Pulse Ox 100 01/04/24 11:12 Laboratory Results - last 24 hr 01/04/24 07:00 Hgb 7.5 L Hct 24.0 L Sodium 137 Potassium 3.7 Chloride 101 Carbon Dioxide 39.3 H Anion Gap -3.3 L BUN 24 H Creatinine 1.9 H Est GFR (CKD-EPI 2020) 25.88 Glucose 87 Calcium 8.4 L Magnesium 1.9 Time Spent with Patient Time Spent with Patient: >50 minutes Time was spent: preparing to see the patient(eg.review tests), obtaining and/or reviewing separately otained hiistory, ordering medications,tests, procedures, indepentently interpreting results and counseling the patient
[2024-01-04] MEDS: Enoxaparin 30 MG/0.3 ML SYR SC (17:35)
[2024-01-04] MEDS: Atorvastatin 20 MG TAB PO (20:30)
[2024-01-04] MEDS: Docusate Sodium 100 MG CAP PO (20:31)
[2024-01-04] MEDS: Potassium Chloride 20 MEQ TABCR PO (20:31)
[2024-01-04] MEDS: Polyethylene Glycol 3350 17 GM PACKET PO (20:32)
[2024-01-04] MEDS: HYDROmorphone 2 MG TAB 1 MG PO (20:43)
[2024-01-05] VITALS (11 sets, daily range): BP systolic 116–142; BP diastolic 66–89; PULSE 66–89; RESP 10–22; TEMP 36.1–36.8; O2SAT 94–99
--- NOTE | 2024-01-05 | DI.US_ITS ---
Exam(s) US UPPER EXTREMITY VENOUS LT EXAM: US UPPER EXTREMITY VENOUS LT CLINICAL HISTORY: Left upper extremity swelling with better rate and. TECHNIQUE: Ultrasound examination of the left upper extremity venous system(s) is performed using gr ayscale, color-flow, and spectral Doppler analysis. COMPARISON: No exams were available for comparison FINDINGS: The left internal jugular, axillary, subclavian, cephalic, basilic, brachial and median cubital veins are patent without evidence of thrombosis. IMPRESSION: No evidence of a left upper extremity DVT. DATA REPOSITORY:
[2024-01-05] MEDS: Metoprolol 25 MG TAB PO ×4 (01:38→17:37)
[2024-01-05 07:31] LABS: Abs Immature Grans 0.01 10^3/uL (0.0-0.06); Absolute Basophil Count 0.05 10^3/uL (0.0-0.2); Absolute Eosinophil Count 0.52 10^3/uL (0.0-0.7); Absolute Lymphocyte Count 1.23 10^3/uL (1.2-3.4); Absolute Monocyte Count 0.89 10^3/uL (0.1-0.8); Absolute Neutrophil Count 2.87 10^3/uL (1.2-6.7); Basophils % 0.9 %; Eosinophils % 9.3 %; HCT 24.6 % (36.0-46.0); HGB 7.6 g/dL (11.2-15.7); Immature Grans % 0.2 %; Lymphocytes % 22.1 %; MCH 28.4 pg (27.0-33.0); MCHC 30.9 % (32.0-36.0); MCV 92 fL (80-95); MPV 10.3 fL (8.0-11.0); Neutrophils % 51.5 %; Platelet Count 182 10^3/uL (130-400); RBC 2.68 10^6/uL (3.93-5.22); RDW 17.2 % (11.7-14.6); WBC 5.57 10^3/uL (4.4-10.8)
[2024-01-05 07:57] LABS: Lab Add On Test COMPLETED
[2024-01-05 08:15] LABS: ALT 13 U/L (14-59); AST 18 U/L (15-37); Albumin 2.3 g/dL (3.4-5.0); Alkaline Phosphatase 69 U/L (46-116); BUN 21 mg/dL (7-18); Bilirubin, Total 0.7 mg/dL (0.2-1.0); C-Reactive Protein 0.99 mg/dL (<or=0.5); CREATININE 1.9 mg/dL (0.55-1.02); Calcium 8.5 mg/dL (8.5-10.1); Chloride 99 mmol/L (98-107); Estimated GFR 25.88 (mL/min/1.73m2); Glucose 93 mg/dL (74-106); Potassium 3.8 mmol/L (3.5-5.1); Sodium 137 mmol/L (136-145); Total Protein 6.2 g/dL (6.4-8.2)
[2024-01-05] MEDS: Tiotropium Bromide-Respimat 10 PUFF INH 2 PUFF IH (08:41)
[2024-01-05] MEDS: Docusate Sodium 100 MG CAP PO ×2 (09:42→20:21)
[2024-01-05] MEDS: Cholecalciferol (Vitamin D3) 1,000 UNIT TAB 1000 UNITS PO (09:42)
[2024-01-05] MEDS: Mirabegron 50 MG TABCR PO (09:42)
[2024-01-05] MEDS: FLUoxetine 20 MG CAP PO (09:42)
[2024-01-05] MEDS: Preparation H 28 GM TUBE PR ×2 (09:42→20:20)
[2024-01-05] MEDS: Nystatin CREAM 15 GM TUBE TP ×2 (09:43→20:20)
[2024-01-05] MEDS: Pantoprazole 40 MG VIAL IVP (09:48)
[2024-01-05] MEDS: Normal Saline Flush 10 ML SYR IVP ×3 (09:48→20:21)
[2024-01-05] MEDS: Fluticasone NASAL SPRAY 16 GM BTL NS ×2 (09:48→20:20)
[2024-01-05] MEDS: Polyethylene Glycol 3350 17 GM PACKET PO ×2 (10:01→20:19)
--- NOTE | 2024-01-05 10:33 | W.PM.PROGNOT ---
Date of Service Date of service: 01/05/24 Time of Service: 10:33 Assessment and Plan Assessment and plan (1) Acute blood loss anemia: Status: Acute Assessment and plan: Holding apixaban. Hemodynamics and hemoglobin stable after 1 unit. No further bleeding noted. not symptomatic in terms of anemia. surgery following. (2) Lower GI bleed: Status: Acute Assessment and plan: Had diverticulosis on CT scan, but per Dr. Santa likely internal hemorrhoidal. Recommending to defer colonooscopy until more clinically stable unless emergent. Progressing diet. awaiting echocardiogram continue holding apixaban until source of bleed identified. (3) Colitis: Status: Acute Assessment and plan: Patient did have left lower quadrant tenderness which has improved and CT scans indicating diverticulosis but no diverticulitis or abscess but c/w colitis. ESR, WBC, procalcitonin do not suggest acute infection/inflammation. Per Dr. Santa colitis could be related to constipation, he gave additional bowel regimen today. No antibiotics for now, continue to observe. (4) Chronic atrial fibrillation: Status: Chronic Assessment and plan: was on Eliquis which will be held with patient to return to anticoagulation once stabilized. Rate control with metoprolol (5) (HFpEF) heart failure with preserved ejection fraction: Status: Chronic Assessment and plan: Diuretics held on admission due to low blood pressure, BP stable off IV fluids. Rales have improved. Qualifiers: Heart failure chronicity: chronic Qualified Code(s): I50.32 - Chronic diastolic (congestive) heart failure (6) COPD (chronic obstructive pulmonary disease): Status: Chronic Assessment and plan: Not active clinically. Continue outpatient medical therapy and monitor symptoms. Continue LAMA Qualifiers: COPD type: unspecified COPD Qualified Code(s): J44.9 - Chronic obstructive pulmonary disease, unspecified (7) Hypokalemia: Status: Acute Assessment and plan: normalized. continue to follow (8) Left arm pain: Status: Acute Assessment and plan: Still not signs of clot or local infection. Now with other MSK pain in hip/knee. APAP prn for now, low dose hydromorphone if this doesn't work (avoid NSAID with low GFR). Can consider lidocaine/steroid injection for diagnostic/therapeutic trial. discussed with DR Cantu Subjective Subjective Patient reports: no new complaints, feels better, tolerating liquids well and afebrile; denies nausea or shortness of breath Objective Last Vital Signs Temp 36.1 C L 01/05/24 08:13 Pulse 77 01/05/24 08:13 Resp 18 01/05/24 08:13 BP 116/89 01/05/24 08:13 Pulse Ox 95 01/05/24 08:50 Laboratory Results - last 24 hr 01/05/24 01/05/24 06:18 07:56 WBC 5.57 RBC 2.68 L Hgb 7.6 L Hct 24.6 L MCV 92 D MCH 28.4 MCHC 30.9 L RDW 17.2 H Plt Count 182 MPV 10.3 Immature Gran % 0.2 Neutrophils % 51.5 Lymphocytes % 22.1 Monocytes % 16.0 Eosinophils % 9.3 Basophils % 0.9 Nucleated RBC % 0.0 Absolute Neutrophils 2.87 Absolute Lymphocytes 1.23 Absolute Monocytes 0.89 H Absolute Eosinophils 0.52 Absolute Basophils 0.05 Sodium 137 Potassium 3.8 Chloride 99 Carbon Dioxide 35.0 H Anion Gap 3.0 BUN 21 H Creatinine 1.9 H Est GFR (CKD-EPI 2020) 25.88 Glucose 93 Calcium 8.5 Total Bilirubin 0.7 AST 18 ALT 13 L Alkaline Phosphatase 69 C-Reactive Protein 0.99 H Total Protein 6.2 L Albumin 2.3 L Add-On Test Request COMPLETED
--- NOTE | 2024-01-05 11:25 | PDOC.CMIN ---
Date of service: 01/05/24 Time of Service: 11:25 Care Management Initial Assmt Initial Assessment Reason for Hospitalization: anemia Functional Status/Living Situation Town of Residence: [facility] Resides with: [facility] Employment Status: Disabled Advance Directives Advance Directives: Do you have an Advance Directive: Y 01/02/24 03:32 AD On File at [facility]: Y 01/02/24 03:32 Date Asked 01/02/24 01/02/24 03:32 AD Date Reviewed 01/02/24 01/02/24 07:32 COLST On File at [facility] COLST Date Scanned Code Status Resuscitation Status Full Code Insurance Coverage/Financial Issues Insurance: Medicare Medicaid ACO Member: No Care Team Visit Care Team Role Provider Type Blade Thayer Primary Care Provider NON-[facility] STAFF PHYSICIAN InPatient [facility] Other Providers OTHER Suraj Santa MD Other Providers [facility] STAFF PHYSICIAN Shanna Spence MD Emergency Provider [facility] STAFF PHYSICIAN Wojciech Srinivasan Admit Provider [facility] STAFF PHYSICIAN Attending Provider Discharge Anticipated Barriers to Discharge: None Identified Patient/Family Education Needs: Review discharge instructions, discuss [facility] Me [facility] Transportation: [facility] Transportation: Wheel chair van Plan: Anticipate Paige will return to [facility] when medically cleared. She will follow up with facility providers and plan of care and transpport via [facility] coordinated by CM. CM will follow and continue to support discharge needs. PFSH All Active Problems (Updated 01/02/24 @ 12:55 by Jhony Cho) Left arm pain (Acute) Hypokalemia (Acute) Edema of left upper extremity (Chronic) Depression (Chronic) COPD (chronic obstructive pulmonary disease) (Chronic) Colitis (Acute) Lower GI bleed (Acute) Acute blood loss anemia (Acute) Diverticulosis (Chronic) Chronic atrial fibrillation (Chronic) Acute GI bleeding (Acute) Anticoagulant long-term use (Acute) Anemia (Chronic) (HFpEF) heart failure with preserved ejection fraction (Chronic) Social History Smoking/Tobacco Use Status: Former Tobacco Use Smoking risk assessment performed?: Yes Housing: [facility] SDOH(Care Management) Screening Will the Patient Participate in the Screening?: Unable to obtain
--- NOTE | 2024-01-05 11:37 | CMPROGNOTE_ITS ---
Date of service: 01/05/24 Time of Service: 11:37 Care Management Progress Note Progress Note Text Progress Note Text: S/O:Paige was sitting up in a chair when CM met with her. She informed CM that she was really hungry as all she has had for nourishment is clear liquids. Paige was scheduled to have a surgical consult today with the possibility of a colonoscopy. The surgeon decided that the procedure would be too risky given her co-morbidities, so it will not be done at this time. Paige's H&H has stabilized and there has been no further evidence of rectal bleeding. She will likely return to [facility] tomorrow. CM received a call from Kimberly Pandey, her niece and [facility], requesting Paige be transferred to a facility closer to the [place] area where she lives. CM explained that Pa[facility] would [facility] and that she could transfer from there if a bed was secured. CM did contact the occupational therapy director for [facility] in [place] and informed her of the family's request. PT has attempted to work with Paige on 3 different occasions today. She complained of fatigue and dizziness and stated that she was unable to sit up. She informed the therapist that the facility has been using a noemí lift to get her up, so EMS transport may be needed. A:Paige is an 83 year old woman admitted on 01/01/24 with gallstone pancreatitis P;Anticipate Paige will return [facility] and follow up with facility providers and her surgical team. She will transport via [facility] W/C van vs EMS. CM will follow and continue to assess for discharge needs. SDOH(Care Management) Screening Will the Patient Participate in the Screening?: Unable to obtain
--- NOTE | 2024-01-05 13:19 | W.PM.PROGNOT ---
Date of Service Date of service: 01/05/24 Time of Service: 13:19 Assessment and Plan Assessment and plan (1) (HFpEF) heart failure with preserved ejection fraction: Status: Chronic Qualifiers: Heart failure chronicity: chronic Qualified Code(s): I50.32 - Chronic diastolic (congestive) heart failure (2) Chronic atrial fibrillation: Status: Chronic (3) Anticoagulant long-term use: Status: Acute (4) Diverticulosis: Status: Chronic (5) Bleeding hemorrhoids: Status: Acute (6) Acute blood loss anemia: Status: Acute Assessment and plan: Stable for the past 24 hours (7) Anemia: Status: Chronic (8) COPD (chronic obstructive pulmonary disease): Status: Chronic Qualifiers: COPD type: unspecified COPD Qualified Code(s): J44.9 - Chronic obstructive pulmonary disease, unspecified Subjective Subjective Interval history since last seen: 83-year-old female who was admitted on 01/01 with rectal bleeding. She is on apixaban for A-fib. She had some pretty significant hemorrhoids and it was thought to be due to this. She also has a history of colitis which has not been defined. She was deemed too high risk for EGD and colonoscopy [place] [facility] and is being treated expectantly here. Her hemoglobin has been stable for the past 24 hours. Pt is doing well. no headaches. No CP or SOB. no productive cough. no dysuria. no leg pain or swelling. Patient did have a bowel movement today Given her multiple comorbidities, she is at high risk for anesthesia for endoscopy. I recommend you do a fecal calprotectin. I did discuss with medicine whether she truly needs to be on anticoagulation. She is at high risk for rebleeding. I would continue her on aspirin but not recommend the apixaban. She should also be discharged home on long-term stool softeners. Patient is being discharged back to [facility] and rehab by a hospitalist service today. Objective Last Vital Signs Temp 36.6 C 01/05/24 11:26 Pulse 78 01/05/24 11:26 Resp 18 01/05/24 11:26 BP 125/71 01/05/24 11:26 Pulse Ox 99 01/05/24 11:26 Laboratory Results - last 24 hr 01/05/24 01/05/24 06:18 07:56 WBC 5.57 RBC 2.68 L Hgb 7.6 L Hct 24.6 L MCV 92 D MCH 28.4 MCHC 30.9 L RDW 17.2 H Plt Count 182 MPV 10.3 Immature Gran % 0.2 Neutrophils % 51.5 Lymphocytes % 22.1 Monocytes % 16.0 Eosinophils % 9.3 Basophils % 0.9 Nucleated RBC % 0.0 Absolute Neutrophils 2.87 Absolute Lymphocytes 1.23 Absolute Monocytes 0.89 H Absolute Eosinophils 0.52 Absolute Basophils 0.05 Sodium 137 Potassium 3.8 Chloride 99 Carbon Dioxide 35.0 H Anion Gap 3.0 BUN 21 H Creatinine 1.9 H Est GFR (CKD-EPI 2020) 25.88 Glucose 93 Calcium 8.5 Total Bilirubin 0.7 AST 18 ALT 13 L Alkaline Phosphatase 69 C-Reactive Protein 0.99 H Total Protein 6.2 L Albumin 2.3 L Add-On Test Request COMPLETED Time Spent with Patient Time Spent with Patient: <25 minutes Time was spent: preparing to see the patient(eg.review tests), ordering medications,tests, procedures, referring, communicating with other health care transition coordinator, indepentently interpreting results and care coordination
--- NOTE | 2024-01-05 13:46 | PT.INTREAT ---
PT Notes Visit Reasons: Acute blood loss anemia, Lower GI bleed, Colitis Inpatient Physical Therapy Treatment Note [facility] Date: 01/05/24 SUBJECTIVE: Exhausted and sleepy but was agreeable to trying out sitting up and then possibly sitting onto chair. PT came back wih more appropriate chair for paient to comfortably sit on. Did not have the energy to transfer onto chair this morning after two attempts. OBJECTIVE: On 2 L of oxygen per minute via mask. Externa feml cthater in place. Telemetry monitoring in place.? VITALS: Monitored via tele? Therapeutic Exercises (26013f9): Direct one-on-one instruction in therapeutic exercises to develop strength, endurance, range of motion and flexibility. Gluteal steps 5sh x 5 Quads ssets 5sh x 5 Ankle PF/DF x 5 less than [address] Gentle arm wrestle to increase L shoulder flexion/extension, L elbow ext, and L shoulder ext rot x 10 ASSESSMENT: Activity tolerance decreased, SOB, fatigue and sleepiness worsens with effort. Attempted to sit up at edge of bed but failed twice due to inablity of patient to tolerate activity. PLAN: Progress strength and mobility level s tolerated. May benefit from STEDY lift training with 2 staff. TREATMENT CODE/TIME: 58275 x 25 minutes for 2 units (11:42-12:07).
--- NOTE | 2024-01-05 14:29 | W.PM.DS.N ---
DS: Diagnosis Discharge Diagnosis (1) (HFpEF) heart failure with preserved ejection fraction: Status: Chronic (2) Chronic atrial fibrillation: Status: Chronic (3) Anticoagulant long-term use: Status: Acute (4) Diverticulosis: Status: Chronic (5) Bleeding hemorrhoids: Status: Acute (6) Acute blood loss anemia: Status: Acute (7) Anemia: Status: Chronic (8) COPD (chronic obstructive pulmonary disease): Status: Chronic Discharge Plan Disposition Patient Disposition: Long Term Facility(SNF) Condition: Stable Discharge Details Reason For Visit: Acute blood loss anemia, Lower GI bleed, Colitis Admit Date/Time: 01/02/24 03:22 Admit Provider: Wojciech Srinivasan Attending Provider: Wojciech Srinivasan Primary Care Provider: Blade Thayer Hospital Course Hospital Course: This is an 83-year-old female patient admitted for acute lower GI bleed. She is chronically anticoagulated on apixaban for atrial fibrillation. She did receive 1 unit of packed red blood cells with stabilization of her hemoglobin and hematocrit. Surgery was consulted and her records were reviewed from [facility] where she was prior to being admitted at [facility] and rehab. After discussion with surgery, will discharge on asa 81 mg for afib. Does not recommend endoscopy at this time and should continue with outpatient follow up as previously recommended. She is stable to return to rehab and should stop apixaban. From H&P She had a most recent hospitalization at [facility] for sepsis and during that time had a lower GI bleed with bright red blood requiring transfusion 2 units of packed red blood cells per ED provider signout. Her Eliquis had been held during the last hospital stay at [facility] but restarted before discharge without having endoscopy evaluation with CT scan of the abdomen showing diverticulosis and possible colitis. There was a plan for outpatient endoscopy at that discharge. She was at the [facility] [place] only 4 days after this last hospitalization presenting to the [facility] ED this hospitalization with bright red blood per rectum without syncope or palpitations and having no discomfort reported. Home Meds and New Rx's Prescriptions: New docusate sodium [Colace] 100 mg Capsule 100 mg PO BID Qty: 0 0RF Preparation H 0.25-14-74.9 % Ointment 1 applic [place] BID Qty: 0 0RF Continued amlodipine 5 mg tablet 5 mg PO DAILY famotidine [Acid Controller] 20 mg tablet 20 mg PO DAILY fesoterodine 8 mg tablet extended release 24 hr 8 mg PO DAILY fluoxetine 20 mg capsule 20 mg PO DAILY fluticasone propionate [24 Hour Allergy Relief] 50 mcg/actuation spray,suspension 1 spray intranasal BID Rx Instructions: administer into each nostril furosemide 40 mg tablet 40 mg PO BID metoprolol succinate [Toprol XL] 100 mg tablet extended release 24 hr 100 mg PO DAILY mirabegron [Myrbetriq] 50 mg tablet extended release 24 hr 50 mg PO DAILY Spiriva Respimat 2.5 mcg/actuation mist 2 inh inhalation DAILY trazodone 50 mg tablet 50 mg PO QHS PRN acetaminophen [Tylenol Extra Strength] 500 mg tablet 1,000 mg PO Q8H PRN PRN atorvastatin 20 mg tablet 20 mg PO QHS cholecalciferol (vitamin D3) 25 mcg (1,000 unit) tablet 75 mcg PO DAILY Patient Comments: TAKE 3 TABLETS BY MOUTH DAILY Discontinued Eliquis 2.5 mg tablet 2.5 mg PO BID Discharge Instructions Instructions: Anemia (DC) Additional Instructions: stop eliquis can use aspirin [address] Referrals: Blade Thayer [Primary Care Provider] - Activity:: Activity as Tolerated Equipment/Supplies:: No Equipment Needed Diet:: As Tolerated DS: Summary Quality:SDOH Health Related Social Needs: No Data to Display Exam Const General: no acute distress and ill appearing acutely Nutritional Appearance: obese Orientation: awake and oriented x3 HENMT Head: normal to inspection, normocephalic and atraumatic Face and sinus: normal facial exam Mouth: oral mucosae normal Neck Neck: normal visual inspection and no JVD Chest Chest: normal inspection of the chest Resp Effort & Inspection: normal respiratory effort Cardio Rate: regular rate Rhythm: regular rhythm GI Inspection: normal to inspection Palpation: soft, not rigid and nontender Skin General skin exam: no rashes or lesions noted Neuro General: patient alert, patient awake, patient oriented x3, tone normal and no focal motor deficits Extrem General: normal to inspection and full ROM DS: Data Vitals/I&O Vitals and I&O: Vital Signs Temperature 36.6 C 01/05/24 11:26 Temperature Source Tympanic 01/05/24 11:26 Pulse 78 01/05/24 11:26 Pulse Rhythm Irregular 01/04/24 20:35 Pulse 88 01/02/24 03:31 Respiratory Rate 18 01/05/24 11:26 Respiratory Effort Normal, Non-Labored 01/04/24 20:35 Respiratory Depth Shallow 01/04/24 20:35 Respiratory Pattern Normal 01/04/24 20:35 Blood Pressure 125/71 01/05/24 11:26 Blood Pressure Mean 89 01/02/24 03:31 Pulse Oximetry 99 01/05/24 11:26 Oxygen Delivery Method OxyMask 01/05/24 11:26 Oxygen Flow Rate 2 01/05/24 11:26 Fraction of Inspired Oxygen (FIO2) 01/05/24 08:01 Pain Level 5 01/05/24 11:26 Intake & Output 01/04/24 01/05/24 01/05/24 23:59 11:59 23:59 Intake Total 20 / 50 10 / 10 Output Total 125 / 125 Balance 20 / -500 -115 / -115 Weight 115.2 kg Intake: IV 20 / 40 Injectate 10 10 Right Upper Anterior Abdomen 10 10 Output: Drainage 125 / 125 Right Upper Anterior Abdomen 125 / 125 Other: Urine Color Yellow Yellow Urine Appearance Clear Clear Stool Size Small Large Stool Characteristics Soft Soft Brown Brown Black Voiding Methods Diaper Diaper Incontinent Incontinent Data Completed and Pending Labs on day of discharge: Labs from last 24 hours 01/05/24 01/05/24 07:56 06:18 WBC 5.57 RBC 2.68 L Hgb 7.6 L Hct 24.6 L MCV 92 D MCH 28.4 MCHC 30.9 L RDW 17.2 H Plt Count 182 MPV 10.3 Immature Gran % 0.2 Neutrophils % 51.5 Lymphocytes % 22.1 Monocytes % 16.0 Eosinophils % 9.3 Basophils % 0.9 Nucleated RBC % 0.0 Absolute Neutrophils 2.87 Absolute Lymphocytes 1.23 Absolute Monocytes 0.89 H Absolute Eosinophils 0.52 Absolute Basophils 0.05 Sodium 137 Potassium 3.8 Chloride 99 Carbon Dioxide 35.0 H Anion Gap 3.0 BUN 21 H Creatinine 1.9 H Est GFR (CKD-EPI 2020) 25.88 Glucose 93 Calcium 8.5 Total Bilirubin 0.7 AST 18 ALT 13 L Alkaline Phosphatase 69 C-Reactive Protein 0.99 H Total Protein 6.2 L Albumin 2.3 L Add-On Test Request COMPLETED PFSH All Active Problems (Updated 01/05/24 @ 13:20 by Elke Gordon DO) Bleeding hemorrhoids (Acute) Left arm pain (Acute) Hypokalemia (Acute) Edema of left upper extremity (Chronic) Depression (Chronic) COPD (chronic obstructive pulmonary disease) (Chronic) Colitis (Acute) Lower GI bleed (Acute) Acute blood loss anemia (Acute) Diverticulosis (Chronic) Chronic atrial fibrillation (Chronic) Acute GI bleeding (Acute) Anticoagulant long-term use (Acute) Anemia (Chronic) (HFpEF) heart failure with preserved ejection fraction (Chronic) Social History Smoking/Tobacco Use Status: Former Tobacco Use Smoking risk assessment performed?: Yes Housing[facility]
--- NOTE | 2024-01-05 17:24 | PTTR_ITS ---
PT Notes Visit Reasons: Acute blood loss anemia, Lower GI bleed, Colitis Inpatient Physical Therapy Treatment Note [facility] Date: 01/05/2024 SUBJECTIVE: Complained of sudden onset significant dizziness upon sitting up at edge of bed patient could not sit up safely and began to loose her balance. Stated that she has recently been being mechnaically lifted to and from bed at the SNF due to her worsening weakness. OBJECTIVE: On 2 L of oxygen per minute via mask. External female catheter in place. Telemetry monitoring in place.? Must have been upgraded as patient has half a sandwich done on her table. ? VITALS: 113/65 mmHg after lying back down in bed with HR in the low 70s bpm. SOPHIE Karissa was instructed by Nurse Bowie to hold off on doing orthostatics?to let patient's condition settle more. ? Bed Mobility/Transfers: Sit to stand moderate assist with HOB at 60 degrees, patient pulled on PT's hand and on one bed rail. Managed to sit up for about 3 minutes when she complained of significant dizziness. Needed maximal assist of [address] marisa ent back in bed for safety. SOPHIE Hancock then measured all vital signs in supine with HOB at 30 degrees. THERA EX: Refused any further activity due to fatigue. ASSESSMENT: Severe dizziness limited progression of bed mobility for this session this afternoon. Attempted to sit up at edge of bed but failed twice due to inablity of patient to tolerate activity. PLAN: Progress strength and mobility level as tolerated. May benefit from STEDY lift training with 2 staff. TREATMENT CODE/TIME: 88481 x 23 minutes for 2 units (16:31-16:54).
[2024-01-05] MEDS: Enoxaparin 30 MG/0.3 ML SYR SC (17:37)
[2024-01-05] MEDS: Acetaminophen 325 MG TAB PO (17:56)
[2024-01-05] MEDS: HYDROmorphone 2 MG TAB 1 MG PO (20:19)
[2024-01-05] MEDS: Atorvastatin 20 MG TAB PO (20:21)
[2024-01-05] MEDS: Potassium Chloride 20 MEQ TABCR PO (20:21)
[2024-01-06] MEDS: Metoprolol 25 MG TAB PO ×3 (00:23→11:51)
[2024-01-06 00:24] VITALS: BP 127/91; PULSE 95; RESP 22; TEMP 36.4; O2SAT 94
[2024-01-06 03:00] VITALS: PULSE 86; RESP 10; RESP 17; O2SAT 96
[2024-01-06 05:45] VITALS: BP 143/90; PULSE 74; RESP 17; TEMP 36.4; O2SAT 94
[2024-01-06 07:52] VITALS: BP 146/86; PULSE 74; RESP 19; TEMP 36; O2SAT 97
[2024-01-06 08:14] VITALS: RESP 19; O2SAT 95
[2024-01-06] MEDS: Cholecalciferol (Vitamin D3) 1,000 UNIT TAB 1000 UNITS PO (08:32)
[2024-01-06] MEDS: Fluticasone NASAL SPRAY 16 GM BTL NS (08:34)
[2024-01-06] MEDS: Docusate Sodium 100 MG CAP PO (08:34)
[2024-01-06] MEDS: FLUoxetine 20 MG CAP PO (08:34)
[2024-01-06] MEDS: Mirabegron 25 MG TABCR PO (08:35)
[2024-01-06] MEDS: Normal Saline Flush 10 ML SYR IVP ×2 (08:35→09:13)
[2024-01-06] MEDS: Pantoprazole 40 MG VIAL IVP (08:36)
[2024-01-06] MEDS: Nystatin CREAM 15 GM TUBE TP (08:36)
[2024-01-06] MEDS: Ondansetron 4 MG/2 ML VIAL IVP (09:06)
--- NOTE | 2024-01-06 09:36 | DSE_ITS ---
Date of service: 01/06/24 Time of Service: 09:36 DS: Diagnosis Discharge Diagnosis (1) (HFpEF) heart failure with preserved ejection fraction: Status: Chronic (2) Chronic atrial fibrillation: Status: Chronic (3) Anticoagulant long-term use: Status: Acute (4) Diverticulosis: Status: Chronic (5) Bleeding hemorrhoids: Status: Acute (6) Acute blood loss anemia: Status: Acute (7) Anemia: Status: Chronic (8) COPD (chronic obstructive pulmonary disease): Status: Chronic Discharge Plan Disposition Patient Disposition: Snf Facility(SNF) Condition: Stable Discharge Details Reason For Visit: Acute blood loss anemia, Lower GI bleed, Colitis Admit Date/Time: 01/02/24 03:22 Admit Provider: Wojciech Srinivasan Attending Provider: Wojciech Srinivasan Primary Care Provider: Blade Thayer Hospital Course Hospital Course: This is an 83-year-old female patient admitted for acute lower GI bleed. She is chronically anticoagulated on apixaban for atrial fibrillation. She did receive 1 unit of packed red blood cells with stabilization of her hemoglobin and hematocrit. Surgery was consulted and her records were reviewed from [facility] where she was prior to being admitted at [facility] and rehab. After discussion with surgery, will discharge on asa 81 mg for afib. Does not recommend endoscopy at this time and should continue with outpatient follow up as previously recommended. She is stable to return to rehab and should stop apixaban. From H&P She had a most recent hospitalization at [facility] for sepsis and during that time had a lower GI bleed with bright red blood requiring transfusion 2 units of packed red blood cells per ED provider signout. Her Eliquis had been held during the last hospital stay at [facility] but restarted before discharge without having endoscopy evaluation with CT scan of the abdomen showing diverticulosis and possible colitis. There was a plan for outpatient endoscopy at that discharge. She was at the [facility] [place] only 4 days after this last hospitalization presenting to the [facility] ED this hospitalization with bright red blood per rectum without syncope or palpitations and having no discomfort reported. Surgical consult mentioned that she was deemed to high risk for EGD aor colonoscopy at [facility] as per Dr. Gordon's notes form 01/05/2024 with recommendation for fecal calprotectin for which an ambulatory order was included in the discharge. No further GI bleeding seen or reported. H&H remained stable this morning and the patient will be discharged with oral iron and stool softeners. Iron blood work added to morning labs to be followed up by her primary care practitioner at [facility]. Discussed with Dr. Cantu Home Meds and New Rx's Prescriptions: New docusate sodium [Colace] 100 mg Capsule 100 mg PO BID Qty: 0 0RF Preparation H 0.25-14-74.9 % Ointment 1 applic [place] BID Qty: 0 0RF ferrous sulfate 325 mg (65 mg iron) tablet 325 mg PO Q48H Qty: 15 0RF aspirin [Enteric Coated Aspirin] 81 mg tablet,delayed release (DR/EC) 81 mg PO BID Qty: 60 0RF Continued amlodipine 5 mg tablet 5 mg PO DAILY famotidine [Acid Controller] 20 mg tablet 20 mg PO DAILY fesoterodine 8 mg tablet extended release 24 hr 8 mg PO DAILY fluoxetine 20 mg capsule 20 mg PO DAILY fluticasone propionate [24 Hour Allergy Relief] 50 mcg/actuation spray,suspension 1 spray intranasal BID Rx Instructions: administer into each nostril furosemide 40 mg tablet 40 mg PO BID metoprolol succinate [Toprol XL] 100 mg tablet extended release 24 hr 100 mg PO DAILY mirabegron [Myrbetriq] 50 mg tablet extended release 24 hr 50 mg PO DAILY Spiriva Respimat 2.5 mcg/actuation mist 2 inh inhalation DAILY trazodone 50 mg tablet 50 mg PO QHS PRN acetaminophen [Tylenol Extra Strength] 500 mg tablet 1,000 mg PO Q8H PRN PRN atorvastatin 20 mg tablet 20 mg PO QHS cholecalciferol (vitamin D3) 25 mcg (1,000 unit) tablet 75 mcg PO DAILY Patient Comments: TAKE 3 TABLETS BY MOUTH DAILY Discontinued Eliquis 2.5 mg tablet 2.5 mg PO BID Discharge Instructions Instructions: Anemia (DC) Additional Instructions: stop eliquis can use aspirin [address] Stand Alone Forms: Nursing Discharge Form Referrals: Blade Thayer [Primary Care Provider] - Activity:: Activity as Tolerated Equipment/Supplies:: No Equipment Needed Diet:: As Tolerated Discharge Orders Discharge Orders: Discharge Order (Routine); Ordered 01/06/24 Ordered By: Soledad Beasley Other Ambulatory Orders: Calprotectin (Routine) Timeframe: 20240107 Facility: [facility] - Location: Laboratory Nonpatient Ordered By: Soledad Beasley DS: Summary Time Spent with Patient providing and/or coordinating discharge services: Greater than 30 minutes Status at Discharge Functional status at discharge: uses cane/walker Overall status at discharge: patient is progressing back to baseline Mental Status: mental status grossly normal Speech and Movement: speech and movement normal Mood: anxious mood Affect: labile affect and anxious affect Quality:SDOH Health Related Social Needs: No Data to Display Exam Narrative Exam Narrative: Constitutional The patient is in bed comfortable, without acute distress, refused to sit up while completing PT HENMT: Head is atraumatic. Facial structures with normal appearance Neuro:alert and oriented X 3 Resp: Clear lung bilaterally Cardio: regular rhythm, S1, S2. GI: Abdomen is large not distended, soft and non tender, bowel sounds are present Back/spine/Pelvis: No back tenderness, normal alignment Integumentary: No skin lesions or rash on exposed skin Psych: RASS 0-1, congruent mood and normal affect. Psych Mental Status: mental status grossly normal Speech and Movement: speech and movement normal Mood: anxious mood Affect: labile affect and anxious affect DS: Data Vitals/I&O Vitals and I&O: Vital Signs Temperature 36.0 C L 01/06/24 07:52 Temperature Source Tympanic 01/06/24 07:52 Pulse 74 01/06/24 07:52 Pulse Rhythm Regular 01/05/24 20:20 Pulse 88 01/02/24 03:31 Respiratory Rate 19 01/06/24 08:14 Respiratory Effort Normal 01/05/24 20:20 Respiratory Depth Normal 01/05/24 20:20 Respiratory Pattern Normal 01/05/24 20:20 Blood Pressure 146/86 H 01/06/24 07:52 Blood Pressure Mean 89 01/02/24 03:31 Pulse Oximetry 95 01/06/24 08:14 Oxygen Delivery Method Bi-pap 01/06/24 07:52 Oxygen Flow Rate 2 01/06/24 05:45 Fraction of Inspired Oxygen (FIO2) 01/06/24 08:14 Pain Level 0 01/06/24 07:52 Intake & Output 01/05/24 01/05/24 01/06/24 11:59 23:59 11:59 Intake Total 10 / 30 20 / 30 Output Total 125 / 200 75 / 200 Balance -115 / -170 -55 / -170 Weight 115.2 kg Intake: IV Injectate Right Upper Anterior Abdomen Output: Drainage 125 / 200 75 / 200 Right Upper Anterior Abdomen 125 / 200 75 / 200 Other: Urine Color Yellow Yellow Urine Appearance Clear Clear Comment Pt brief dry at this time. Performed bladder scan as pt has not had void in approx 10 hrs. No urge to void. No significant urinary retention noted. Charge nurse notified of low urine output. Purewick changed. pT was also incontinent. Stool Size Large Small Small Stool Characteristics Soft Soft Brown Brown Brown Voiding Methods Diaper Diaper Incontinent Incontinent PFSH All Active Problems (Updated 01/05/24 @ 13:20 by Elke Gordon DO) Bleeding hemorrhoids (Acute) Left arm pain (Acute) Hypokalemia (Acute) Edema of left upper extremity (Chronic) Depression (Chronic) COPD (chronic obstructive pulmonary disease) (Chronic) Colitis (Acute) Lower GI bleed (Acute) Acute blood loss anemia (Acute) Diverticulosis (Chronic) Chronic atrial fibrillation (Chronic) Acute GI bleeding (Acute) Anticoagulant long-term use (Acute) Anemia (Chronic) (HFpEF) heart failure with preserved ejection fraction (Chronic) Social History Smoking/Tobacco Use Status: Former Tobacco Use Smoking risk assessment performed?: Yes Housing: [facility] Time Spent with Patient Time Spent with Patient: 70-84 minutes4 Time was spent: preparing to see the patient(eg.review tests), obtaining and/or reviewing separately otained hiistory, ordering medications,tests, procedures, referring, communicating with other health director of medicare, indepentently interpreting results, counseling the patient and care coordination
--- NOTE | 2024-01-06 10:13 | PTTR_ITS ---
PT Notes Visit Reasons: Acute blood loss anemia, Lower GI bleed, Colitis Inpatient Physical Therapy Treatment Note [facility] Date: 01/06/2024 SUBJECTIVE: Explained to patient need for assessment of sitting balance and tolerance to determine safest mode of transport back to SNF today. Agreed to setting HOB to highest level but complained of being short of breath and started to burp excessively. [employer] OFFICER Soledad present in room and came in to assess patient. OBJECTIVE: On 2 L of oxygen per minute via mask. External female catheter in place. Telemetry monitoring in place.? Appeared overly anxious with HOB set up at 80 degrees. VITALS: 113/62 mmHg, HR 75 bpm, O2 sat at 97% on 2 L/min? Bed Mobility/Transfers: Supine to sit dependent with HOB set to about 80 degrees from horizontal Deferred any further activity due to patient refusal and anxiety ASSESSMENT: Excessive eructation in sitting position with report of lightheadedness and shortness of breath. However vital signs were WNL as above. Recommend use of ambulance for transport as patient is unable to tolerate sitting position at this time. CM Leti updated. PLAN: Progress strength and mobility level as tolerated at [facility]. TREATMENT CODE/TIME: 95410 x 15 minutes for 1 unit (9:57-10:12).
[2024-01-06 10:40] LABS: Lab Add On Test DONE
[2024-01-06 10:54] LABS: Iron 22 ug/dL (50-170); Total Iron Binding Capacity 243 ug/dL (250-450); Transferrin Sat 9 % (15-50)
[2024-01-06 10:58] VITALS: BP 137/82; PULSE 88; RESP 22; TEMP 36.7; O2SAT 99
[2024-01-06] MEDS: Bacitracin 1 PACKET TP (14:45)
--- NOTE | 2024-01-06 15:16 | W.PM.DS.N ---
Date of service: 01/06/24 Time of Service: 15:16 DS: Diagnosis Discharge Diagnosis (1) (HFpEF) heart failure with preserved ejection fraction: Status: Chronic (2) Chronic atrial fibrillation: Status: Chronic (3) Anticoagulant long-term use: Status: Acute (4) Diverticulosis: Status: Chronic (5) Bleeding hemorrhoids: Status: Acute (6) Acute blood loss anemia: Status: Acute (7) Anemia: Status: Chronic (8) COPD (chronic obstructive pulmonary disease): Status: Chronic Discharge Plan Disposition Patient Disposition: Shelter Facility(SNF) Condition: Stable Discharge Details Reason For Visit: Acute blood loss anemia, Lower GI bleed, Colitis Admit Date/Time: 01/02/24 03:22 Admit Provider: Wojciech Srinivasan Attending Provider: Wojciech Srinivasan Primary Care Provider: Blade Thayer Hospital Course Hospital Course: This is an 83-year-old female patient admitted for acute lower GI bleed. She is chronically anticoagulated on apixaban for atrial fibrillation. She did receive 1 unit of packed red blood cells with stabilization of her hemoglobin and hematocrit. Surgery was consulted and her records were reviewed from [facility] where she was prior to being admitted at [facility] and rehab. After discussion with surgery, will discharge on aspirin 81 mg for afib. Does not recommend endoscopy at this time and should continue with outpatient follow up as previously recommended. She is stable to return to rehab and should stop apixaban. The patient was most recently hospitalized at [facility] for sepsis and during that time had a lower GI bleed with bright red blood requiring transfusion 2 units of packed red blood cells per ED provider signout. Her Eliquis had been held during the last hospital stay at [facility] but restarted before discharge without having endoscopy evaluation with CT scan of the abdomen showing diverticulosis and possible colitis. There was a plan for outpatient endoscopy at that discharge. She was at the [facility] only 4 days after this last hospitalization presenting to the [facility] ED this hospitalization with bright red blood per rectum without syncope or palpitations and having no discomfort reported. Surgical consult mentioned that she was deemed to high risk for EGD aor colonoscopy at [facility] as per Dr. Gordon's notes form 01/05/2024 with recommendation for fecal calprotectin for which an ambulatory order was included in the discharge. Dr. Santa also review the patient's cholescystostomy tube and recommended gravity drainage and 10 cc sterile normal saline flushes twice a day to maintain patency. The provider further mentioned that patients with cholecystostomy tubes would undergo definitive cholecystectomy to remove the gallbladder but considered this extremely high risk in the patient's current state. Surgery mentioned the alternatively, some patients can simply have the tube removed if a cholangiogram appears relatively normal. The recommendations from surgery will have to be followed up by PCP as an outpatient. No further GI bleeding seen or reported. H&H remained stable this morning and the patient will be discharged with oral iron and stool softeners. Iron blood work added to morning labs to be followed up by her primary care practitioner at [facility]. The patient had a PICC to her right chest wall that reportedly was in prior to arrival to the ED at [facility] on 01/02/2024. The patient reported to her RN that it [facility], but never received the IV antibiotics. During her stay at [facility] the patient's workup did not demonstrate the need for antibiotics. The PICC line was removed and length measured was 26 cm, line appeared intact, site was without redness, swelling or drainage. Bacitracin and adpatic applied to site, followed by dry, sterile gauze and sterile ABD pad; pressure applied for 5 minutes. Change dressing for band-aid after [address] Cantu [place] Meds and New Rx's Prescriptions: New docusate sodium [Colace] 100 mg Capsule 100 mg PO BID Qty: 0 0RF Preparation H 0.25-14-74.9 % Ointment 1 applic [place] BID Qty: 0 0RF ferrous sulfate 325 mg (65 mg iron) tablet 325 mg PO Q48H Qty: 15 0RF aspirin [Enteric Coated Aspirin] 81 mg tablet,delayed release (DR/EC) 81 mg PO BID Qty: 60 0RF Continued amlodipine 5 mg tablet 5 mg PO DAILY famotidine [Acid Controller] 20 mg tablet 20 mg PO DAILY fesoterodine 8 mg tablet extended release 24 hr 8 mg PO DAILY fluoxetine 20 mg capsule 20 mg PO DAILY fluticasone propionate [24 Hour Allergy Relief] 50 mcg/actuation spray,suspension 1 spray intranasal BID Rx Instructions: administer into each nostril furosemide 40 mg tablet 40 mg PO BID metoprolol succinate [Toprol XL] 100 mg tablet extended release 24 hr 100 mg PO DAILY mirabegron [Myrbetriq] 50 mg tablet extended release 24 hr 50 mg PO DAILY Spiriva Respimat 2.5 mcg/actuation mist 2 inh inhalation DAILY trazodone 50 mg tablet 50 mg PO QHS PRN acetaminophen [Tylenol Extra Strength] 500 mg tablet 1,000 mg PO Q8H PRN PRN atorvastatin 20 mg tablet 20 mg PO QHS cholecalciferol (vitamin D3) 25 mcg (1,000 unit) tablet 75 mcg PO DAILY Patient Comments: TAKE 3 TABLETS BY MOUTH DAILY Discontinued Eliquis 2.5 mg tablet 2.5 mg PO BID Discharge Instructions Instructions: Anemia (DC) Additional Instructions: stop eliquis can use aspirin [address] Stand Alone Forms: Nursing Discharge Form Referrals: Blade Thayer [Primary Care Provider] - Activity:: Activity as Tolerated Equipment/Supplies:: No Equipment Needed Diet:: As Tolerated Discharge Orders Discharge Orders: Discharge Order (Routine); Ordered 01/06/24 Ordered By: Soledad Beasley Other Ambulatory Orders: Calprotectin (Routine) Timeframe: 20240107 Facility: [facility] - Location: Laboratory Nonpatient Ordered By: Soledad Beasley Discharge Data Discharge Date/Time-TO BE ENTERED AT DEPARTURE: 01/06/24 14:52 DS: Summary Time Spent with Patient providing and/or coordinating discharge services: Greater than 30 minutes Status at Discharge Functional status at discharge: uses cane/walker Overall status at discharge: patient is progressing back to baseline Mental Status: mental status grossly normal Speech and Movement: speech and movement normal Mood: anxious mood Affect: labile affect and anxious affect Quality:SDOH Health Related Social Needs: No Data to Display Exam Narrative Exam Narrative: Constitutional The patient is in bed comfortable, without acute distress, refused to sit up while completing PT HENMT: Head is atraumatic. Facial structures with normal appearance Neuro:alert and oriented X 3 Resp: Clear lung bilaterally Cardio: regular rhythm, S1, S2. GI: Abdomen is large not distended, soft and non tender, bowel sounds are present Back/spine/Pelvis: No back tenderness, normal alignment Integumentary: No skin lesions or rash on exposed skin Psych: RASS 0-1, congruent mood and normal affect. Psych Mental Status: mental status grossly normal Speech and Movement: speech and movement normal Mood: anxious mood Affect: labile affect and anxious affect DS: Data Vitals/I&O Vitals and I&O: Vital Signs Temperature 36.7 C 01/06/24 10:58 Temperature Source Temporal Artery Scan 01/06/24 10:58 Pulse 88 01/06/24 10:58 Pulse Rhythm Regular 01/06/24 10:50 Pulse 88 01/02/24 03:31 Respiratory Rate 22 01/06/24 10:58 Respiratory Effort Normal 01/06/24 10:50 Respiratory Depth Normal 01/06/24 10:50 Respiratory Pattern Normal 01/06/24 10:50 Blood Pressure 137/82 01/06/24 10:58 Blood Pressure Mean 89 01/02/24 03:31 Pulse Oximetry 99 01/06/24 10:58 Oxygen Delivery Method OxyMask 01/06/24 10:58 Oxygen Flow Rate 2 01/06/24 10:58 Fraction of Inspired Oxygen (FIO2) 28 01/06/24 08:14 Pain Level 6 01/06/24 10:58 Intake & Output 01/05/24 01/06/24 01/06/24 23:59 11:59 23:59 Intake Total 20 / 30 Output Total 75 / 200 Balance -55 / -170 Intake: IV Output: Drainage 75 / 200 Right Upper Anterior Abdomen 75 / 200 Other: Urine Color Yellow Urine Appearance Clear Comment Pt brief dry at this time. Performed bladder scan as pt has not had void in approx 10 hrs. No urge to void. No significant urinary retention noted. Charge nurse notified of low urine output. Purewick changed. pT was also incontinent. Stool Size Small Small Moderate Stool Characteristics Soft Brown Soft Brown Brown Voiding Methods Diaper Incontinent Data Completed and Pending Labs on day of discharge: Labs from last 24 hours 01/06/24 01/05/24 10:39 06:18 Iron 22 L TIBC 243 L Transferrin % Sat 9 L Add-On Test Request DONE PFS All Active Problems (Updated 01/05/24 @ 13:20 by Elke Gordon DO) Bleeding hemorrhoids (Acute) Left arm pain (Acute) Hypokalemia (Acute) Edema of left upper extremity (Chronic) Depression (Chronic) COPD (chronic obstructive pulmonary disease) (Chronic) Colitis (Acute) Lower GI bleed (Acute) Acute blood loss anemia (Acute) Diverticulosis (Chronic) Chronic atrial fibrillation (Chronic) Acute GI bleeding (Acute) Anticoagulant long-term use (Acute) Anemia (Chronic) (HFpEF) heart failure with preserved ejection fraction (Chronic) Social History Smoking/Tobacco Use Status: Former Tobacco Use Smoking risk assessment performed?: Yes Housing: group home Time Spent with Patient Time Spent with Patient: 70-84 minutes4 Time was spent: preparing to see the patient(eg.review tests), obtaining and/or reviewing separately otained hiistory, ordering medications,tests, procedures, referring, communicating with other health emergency care attendant, indepentently interpreting results, counseling the patient and care coordination
--- NOTE | 2024-01-07 08:08 | CMDISCH_ITS ---
Date of service: 01/07/24 Time of Service: 08:08 LACE Index Scoring Tool Questions: Length of Stay (in days): 4 - 6 Was the patient admitted via the E.D.?: Yes Comorbidities: Congestive Heart Failure and Chronic Pulmonary Disease E.D. Visits: 1 Answers: Total Score: 13 Risk of Readmission: High Risk Care Management Discharge Plan Reason for Hospitalization: GI Bleed Discharge Plan: Paige will return to [facility]. She will follow up with the facility providers ands plan of care and transport with EMS coordinated by CM. Patient/Family Education Needs: Review of discharge instructions, follow up plan, activity, limitations, discuss Ask Me Three Services Needed at Discharge: Custodial Facility SDOH Health Related Social Needs: No Data to Display
== END 2024-01-06 14:52 | disposition skilled nursing facility (03) | DRG 393 ==
LOC: ER 03:32 → MS 04:34
PROVIDERS: Family Medicine; Nurse Practitioner Acute Care; Surgery; Admitting Provider Family Medicine; Emergency Provider Student in an Organized Health Care Education/Training Program; PCP Family Medicine; Visit Provider Family Medicine
DX: K64.8 Other hemorrhoids (principal); K57.31 Diverticulosis of large intestine without perforation or abscess with bleeding; D62 Acute posthemorrhagic anemia; I48.20 Chronic atrial fibrillation, unspecified; I50.32 Chronic diastolic (congestive) heart failure; F32.89 Other specified depressive episodes; J44.9 Chronic obstructive pulmonary disease, unspecified; E87.6 Hypokalemia; Z79.01 Long term (current) use of anticoagulants; K64.9 Unspecified hemorrhoids; M79.602 Pain in left arm; K59.09 Other constipation; R60.0 Localized edema; Z87.891 Personal history of nicotine dependence; E66.01 Morbid (severe) obesity due to excess calories; Z93.8 Other artificial opening status; K52.9 Noninfective gastroenteritis and colitis, unspecified
CPT/HCPCS: 00123; 36415; 36430; 80048; 80053; 84145; 85027; 85652; 86850; 86900; 86901; 86920; 93005; 94640; 97110; 97163; 97530; 99222; 99231; 99285; 74177; 83540; 83550; 83605; 83735; 84484; 85014; 85018; 85025; 85610; 85730; 86140; 93010; 93971; 94660; 94664; 94760; 99223; 99232; 99233; 99239; J1650; J2405; J2470; J2997; J3480; J3490; P9016

== ENCOUNTER 2024-01-07 16:43 | Outpatient (REF) | payer MEDICARE, MEDICAID, SELFPAY ==
[2024-01-07 13:19] LABS: Abs Immature Grans 0.02 10^3/uL (0.0-0.06); Absolute Basophil Count 0.07 10^3/uL (0.0-0.2); Absolute Eosinophil Count 0.33 10^3/uL (0.0-0.7); Absolute Lymphocyte Count 0.86 10^3/uL (1.2-3.4); Absolute Monocyte Count 0.82 10^3/uL (0.1-0.8); Absolute Neutrophil Count 5.17 10^3/uL (1.2-6.7); Eosinophils % 4.5 %; HCT 27.1 % (36.0-46.0); HGB 8.4 g/dL (11.2-15.7); Immature Grans % 0.3 %; Lymphocytes % 11.8 %; MCH 28.6 pg (27.0-33.0); MCV 92 fL (80-95); MPV 10.7 fL (8.0-11.0); Monocytes % 11.3 %; Neutrophils % 71.1 %; Platelet Count 182 10^3/uL (130-400); RBC 2.94 10^6/uL (3.93-5.22); RDW 16.7 % (11.7-14.6); WBC 7.27 10^3/uL (4.4-10.8)
[2024-01-07 13:28] LABS: ALT 14 U/L (14-59); AST 16 U/L (15-37); Albumin 2.5 g/dL (3.4-5.0); Alkaline Phosphatase 71 U/L (46-116); Anion Gap 3.4 mmol/L (3-11); BUN 20 mg/dL (7-18); Bilirubin, Total 0.7 mg/dL (0.2-1.0); CO2 35.6 mmol/L (21.0-32.0); CREATININE 1.8 mg/dL (0.55-1.02); Calcium 8.6 mg/dL (8.5-10.1); Chloride 99 mmol/L (98-107); Estimated GFR 27.61 (mL/min/1.73m2); Glucose 107 mg/dL (74-106); Sodium 138 mmol/L (136-145); Total Protein 6.3 g/dL (6.4-8.2)
== END 2024-01-07 16:44 | disposition home or self-care (01) ==
LOC: NCHCN 16:43
PROVIDERS: PCP Family Medicine; Visit Provider Family Medicine
DX: D50.9 Iron deficiency anemia, unspecified (principal)
CPT/HCPCS: 80053; 85025

== ENCOUNTER 2024-01-09 15:49 | Outpatient (REF) | payer MEDICARE, MEDICAID, SELFPAY ==
[2024-01-09 17:04] LABS: Abs Immature Grans 0.03 10^3/uL (0.0-0.06); Absolute Basophil Count 0.06 10^3/uL (0.0-0.2); Absolute Eosinophil Count 0.25 10^3/uL (0.0-0.7); Absolute Lymphocyte Count 0.99 10^3/uL (1.2-3.4); Absolute Monocyte Count 1.03 10^3/uL (0.1-0.8); Absolute Neutrophil Count 6.28 10^3/uL (1.2-6.7); Basophils % 0.7 %; Eosinophils % 2.9 %; HCT 27.4 % (36.0-46.0); HGB 8.5 g/dL (11.2-15.7); Immature Grans % 0.3 %; Lymphocytes % 11.5 %; MCH 27.8 pg (27.0-33.0); MCV 90 fL (80-95); Monocytes % 11.9 %; Neutrophils % 72.7 %; RBC 3.06 10^6/uL (3.93-5.22); RDW 16.5 % (11.7-14.6); RDW-SD 54.8 fL; WBC 8.64 10^3/uL (4.4-10.8)
[2024-01-09 17:11] LABS: ALT 13 U/L (14-59); AST 15 U/L (15-37); Albumin 2.4 g/dL (3.4-5.0); Alkaline Phosphatase 69 U/L (46-116); Anion Gap 5.9 mmol/L (3-11); BUN 19 mg/dL (7-18); Bilirubin, Total 0.9 mg/dL (0.2-1.0); CO2 32.1 mmol/L (21.0-32.0); CREATININE 1.9 mg/dL (0.55-1.02); Calcium 8.4 mg/dL (8.5-10.1); Chloride 97 mmol/L (98-107); Estimated GFR 25.88 (mL/min/1.73m2); Glucose 125 mg/dL (74-106); Potassium 3.9 mmol/L (3.5-5.1); Sodium 135 mmol/L (136-145); Total Protein 6.3 g/dL (6.4-8.2)
[2024-01-09 17:17] LABS: Diff Comment PLT Morph Reviewed; RBC Morphology Normal
== END 2024-01-09 15:50 | disposition home or self-care (01) ==
LOC: LBN 15:49
PROVIDERS: PCP Family Medicine; Visit Provider Family Medicine
DX: D64.9 Anemia, unspecified (principal); I10 Essential (primary) hypertension; E11.9 Type 2 diabetes mellitus without complications; I48.20 Chronic atrial fibrillation, unspecified; J44.9 Chronic obstructive pulmonary disease, unspecified
CPT/HCPCS: 80053; 85025

== ENCOUNTER 2024-01-09 21:19 | Inpatient (IN) | payer MEDICARE, OTHER, MEDICAID, SELFPAY ==
[2024-01-09] VITALS (31 sets, daily range): BP systolic 114–175; BP diastolic 54–135; PULSE 73–128; RESP 16–31; TEMP 36.6; O2SAT 94
[2024-01-09] MEDS: Albuterol 2.5 MG/3 ML INH SOLN VIAL UPD (21:40)
--- NOTE | 2024-01-09 21:56 | DI.RAD_ITS ---
Exam(s) XR PORTABLE CHEST AP EXAM: XR PORTABLE CHEST AP CLINICAL HISTORY: shortness of breath TECHNIQUE: 2D digital imaging was performed of the chest. One image was obtained. An AP view was ob tained. COMPARISON: No exams were available for comparison FINDINGS: MEDIASTINUM: Normal. HEART: Upper limits of normal in size. PULMONARY VASCULATURE: There is pulmonary venous congestion. LUNGS: Bilateral pulmonary opacities are seen. PLEURAL SPACE: Bilateral pleural effusions. No pneumothorax. BONE:Within normal limits for the patient's age. OTHER FINDINGS:Normal. IMPRESSION: Pulmonary venous congestion and bilateral pulmonary opacities suspicious for interstitial edema/CHF. DATA REPOSITORY: RADIATION DOSE DELIVERED:
[2024-01-09 21:58] LABS: Abs Immature Grans 0.03 10^3/uL (0.0-0.06); Absolute Basophil Count 0.07 10^3/uL (0.0-0.2); Absolute Eosinophil Count 0.29 10^3/uL (0.0-0.7); Absolute Lymphocyte Count 1.33 10^3/uL (1.2-3.4); Absolute Neutrophil Count 7.03 10^3/uL (1.2-6.7); Basophils % 0.7 %; Eosinophils % 2.9 %; HCT 28.2 % (36.0-46.0); Immature Grans % 0.3 %; Lymphocytes % 13.1 %; MCH 28.7 pg (27.0-33.0); MCHC 31.9 % (32.0-36.0); MCV 90 fL (80-95); MPV 9.6 fL (8.0-11.0); Monocytes % 13.8 %; Neutrophils % 69.2 %; Platelet Count 211 10^3/uL (130-400); RBC 3.14 10^6/uL (3.93-5.22); RDW 16.2 % (11.7-14.6); RDW-SD 53.5 fL; WBC 10.15 10^3/uL (4.4-10.8)
[2024-01-09 22:30] LABS: ALT 14 U/L (14-59); AST 13 U/L (15-37); Albumin 2.5 g/dL (3.4-5.0); Alkaline Phosphatase 78 U/L (46-116); BUN 21 mg/dL (7-18); Bilirubin, Total 0.8 mg/dL (0.2-1.0); Calcium 8.5 mg/dL (8.5-10.1); Chloride 97 mmol/L (98-107); Estimated GFR 24.33 (mL/min/1.73m2); Glucose 118 mg/dL (74-106); Lipase 21 U/L (16-77); Magnesium 2.1 mg/dL (1.8-2.4); NT-proBNP 9113 pg/mL (<300); Potassium 3.6 mmol/L (3.5-5.1); Sodium 134 mmol/L (136-145); TSH (W/Ref FT4) 5.46 uIU/mL (0.36-3.74); Total Protein 7.1 g/dL (6.4-8.2); Troponin I < 50 ng/L (< or =60)
--- NOTE | 2024-01-09 22:30 | RT.EKG_ITS ---
APPROVED REPORT Exam: Resting ECG Reason for Exam: chest pain Patient Location: E HR:114 bpm ECG Measurements Heart Rate 114 AXIS OR [id number] P [id number] QRSd 89 QRS -21 QT 337 T 173 QTc 465 Conclusion Atrial fibrillation...V-rate 85-169, irreg A-activity Ventricular premature complex...V complex w/ short R-R interval Probable LVH with secondary repol abnrm...multiple LVH criteria Inferior infarct, old...Q >35mS, II III aVF Physician: no stemi
[2024-01-09 22:32] LABS: D-Dimer 995 ng/mlFEU (<500)
[2024-01-09 22:34] LABS: COVID-19 PCR Negative (Negative); Influenza A PCR Negative (Negative); Influenza B PCR Negative (Negative); RSV PCR Negative (Negative)
[2024-01-09 22:50] LABS: FREE T4 1.26 ng/dL (0.76-1.46)
[2024-01-09 22:55] LABS: Source Nasopharynx
[2024-01-09] MEDS: Furosemide 40 MG/4 ML VIAL IVP (23:01)
[2024-01-09] MEDS: Metoprolol 5 MG/5 ML VIAL IVP (23:02)
--- NOTE | 2024-01-09 23:12 | DI.VRAD_ITS ---
PROCEDURE INFORMATION: Exam: XR Chest Exam date and time: 01/09/2024 9:54 PM Age: 83 years old Clinical indication: Shortness of breath TECHNIQUE: Imaging protocol: Radiologic exam of the chest. Views: 1 view. COMPARISON: CT ABDOMEN PELVIS W 01/02/2024 1:18 AM FINDINGS: Lungs: Bilateral increased interstitial lung markings which could represent fluid overload or CHF. Pleural spaces: Small bilateral pleural effusions. Heart/Mediastinum: Normal heart size. Bones/joints: No acute skeletal change. IMPRESSION: Increased interstitial lung markings bilaterally and minor bilateral pleural effusions suggesting CHF or interstitial edema. Dictated and Authenticated by: Andrey Montague MD. Ordering:HARSHAD Ghotra MD
--- NOTE | 2024-01-09 23:22 | ED.GENADUL_ITS ---
Discharge Plan Disposition Patient Disposition: Admit to [facility] Condition: Serious Discharge Details Clinical Impression: Acute dyspnea, CHF (congestive heart failure), Pleural effusion, Respiratory failure, CRF (chronic renal failure) Primary Care Provider: Blade Thayer ED Provider: Paradise Kothari Home Meds and New Rx's Prescriptions: No Action amlodipine 5 mg tablet 5 mg PO DAILY famotidine [Acid Controller] 20 mg tablet 20 mg PO DAILY fesoterodine 8 mg tablet extended release 24 hr 8 mg PO DAILY fluoxetine 20 mg capsule 20 mg PO DAILY fluticasone propionate [24 Hour Allergy Relief] 50 mcg/actuation spray,suspension 1 spray intranasal BID Rx Instructions: administer into each nostril furosemide 40 mg tablet 40 mg PO BID metoprolol succinate [Toprol XL] 100 mg tablet extended release 24 hr 100 mg PO DAILY mirabegron [Myrbetriq] 50 mg tablet extended release 24 hr 50 mg PO DAILY Spiriva Respimat 2.5 mcg/actuation mist 2 inh inhalation DAILY trazodone 50 mg tablet 50 mg PO QHS PRN acetaminophen [Tylenol Extra Strength] 500 mg tablet 1,000 mg PO Q8H PRN PRN atorvastatin 20 mg tablet 20 mg PO QHS cholecalciferol (vitamin D3) 25 mcg (1,000 unit) tablet 75 mcg PO DAILY Patient Comments: TAKE 3 TABLETS BY MOUTH DAILY docusate sodium [Colace] 100 mg Capsule 100 mg PO BID Qty: 0 0RF Preparation H 0.25-14-74.9 % Ointment 1 applic SD BID Qty: 0 0RF ferrous sulfate 325 mg (65 mg iron) tablet 325 mg PO Q48H Qty: 15 0RF aspirin [Enteric Coated Aspirin] 81 mg tablet,delayed release (DR/EC) 81 mg PO BID Qty: 60 0RF HPI General Date/Time Provider Initiated Documentation: 01/09/24 21:27 . HPI Narrative: This 83-year-old female presents with report of worsening shortness of breath and some intermittent chest pain over the course of the past 3 days. Did denies worsening chest pain but does state her dyspnea has dramatically worsened in the past 3 days. States she was recently hospitalized for GI bleed. She has resumed her 2.5 of Eliquis per patient. She denies any bleeding today. She states that she has having trouble catching her breath and has orthopnea cannot lay flat. She denies any significant weight gain or peripheral edema. She is status post surgery for which she became septic status postcholecystectomy several months ago and still has a drain in place which is not bothersome per patient. Related Data Home Medications Medication Instructions Recorded Confirmed acetaminophen 500 mg tablet 1,000 mg PO Q8H PRN PRN 01/02/24 01/02/24 (Tylenol Extra Strength) amlodipine 5 mg tablet 5 mg PO DAILY 01/02/24 01/02/24 atorvastatin 20 mg tablet 20 mg PO QHS 01/02/24 01/02/24 famotidine 20 mg tablet (Acid 20 mg PO DAILY 01/02/24 01/02/24 Controller) fesoterodine 8 mg tablet,extended 8 mg PO DAILY 01/02/24 01/02/24 release 24 hr fluoxetine 20 mg capsule 20 mg PO DAILY 01/02/24 01/02/24 fluticasone propionate 50 1 spray intranasal BID 01/02/24 01/02/24 mcg/actuation nasal spray,suspension (24 Hour Allergy Relief) furosemide 40 mg tablet 40 mg PO BID 01/02/24 01/02/24 metoprolol succinate 100 mg 100 mg PO DAILY 01/02/24 01/02/24 tablet,extended release 24 hr (Toprol XL) mirabegron 50 mg tablet,extended 50 mg PO DAILY 01/02/24 01/02/24 release 24 hr (Myrbetriq) tiotropium bromide 2.5 2 inh inhalation DAILY 01/02/24 01/02/24 mcg/actuation mist for inhalation (Spiriva Respimat) trazodone 50 mg tablet 50 mg PO QHS PRN 01/02/24 01/02/24 cholecalciferol (vitamin D3) 25 75 mcg PO DAILY 01/05/24 01/05/24 mcg (1,000 unit) tablet docusate sodium 100 mg capsule 100 mg PO BID #0 caps 01/05/24 (Colace) phenylephrine 0.25 %-mineral oil 1 applic SD BID #0 grams 01/05/24 14 %-petrolatm 74.9 % rectal ointment (Preparation H) aspirin 81 mg tablet,delayed 81 mg PO BID #60 tabs 01/06/24 release (Enteric Coated Aspirin) ferrous sulfate 325 mg (65 mg 325 mg PO Q48H #15 tabs 01/06/24 iron) tablet Previous Rx's Medication Instructions Recorded docusate sodium 100 mg capsule 100 mg PO BID #0 caps 01/05/24 (Colace) phenylephrine 0.25 %-mineral oil 1 applic SD BID #0 grams 01/05/24 14 %-petrolatm 74.9 % rectal ointment (Preparation H) aspirin 81 mg tablet,delayed 81 mg PO BID #60 tabs 01/06/24 release (Enteric Coated Aspirin) ferrous sulfate 325 mg (65 mg 325 mg PO Q48H #15 tabs 01/06/24 iron) tablet Allergies Allergy/AdvReac Type Severity Reaction Status Date / Time duloxetine [From Cymbalta] Allergy Unknown Unknown Verified 01/02/24 00:38 hydrochlorothiazide Allergy Unknown Unknown Verified 01/02/24 00:38 indomethacin [From Indocin] Allergy Unknown Unknown Verified 01/02/24 00:38 lisinopril Allergy Unknown Unknown Verified 01/02/24 00:38 oxybutynin Allergy Unknown Unknown Verified 01/02/24 00:38 tolmetin Allergy Unknown Unknown Verified 01/02/24 00:38 triamterene Allergy Unknown Unknown Verified 01/02/24 00:38 banana Allergy Unknown Verified 01/02/24 00:38 General Stated Complaint: RespSymp EVAN: 3 Exam Narrative Exam Narrative: 83-year-old female presenting alert and oriented, dyspneic and in mild respiratory distress although tolerating oxygen well, crackles at bases of both lungs, no murmur appreciated, irregularly irregular rhythm, no abdominal tenderness, drain in place, pallor, alert and oriented x 4, 1+ edema to bilateral lower extremities, no calf s tenderness appreciated, distal pulses intact Course Vital Signs Vital signs: Vital Signs Temperature 36.6 C 01/09/24 21:20 Pulse 93 H 01/09/24 21:20 Respiratory Rate 16 01/09/24 21:20 Blood Pressure 171/135 H 01/09/24 21:20 Pulse Oximetry 94 01/09/24 21:20 Temperature 36.6 C 01/09/24 22:35 Pulse 115 H 01/09/24 23:02 Respiratory Rate 16 01/09/24 22:35 Respiratory Effort Normal 01/09/24 22:35 Respiratory Depth Normal 01/09/24 22:35 Blood Pressure 171/135 H 01/09/24 22:35 Pulse Oximetry 94 01/09/24 22:35 Pain Level 0 01/09/24 21:20 Lab/Test Results Lab/Test Results: Laboratory Tests Range/Units 01/09/24 21:15 WBC (4.4-10.8) 10^3/uL 10.15 RBC (3.93-5.22) 10^6/uL 3.14 L Hgb (11.2-15.7) g/dL 9.0 L Hct (36.0-46.0) % 28.2 L MCV (80-95) fL 90 MCH (27.0-33.0) pg 28.7 MCHC (32.0-36.0) % 31.9 L RDW (11.7-14.6) % 16.2 H Plt Count (130-400) 10^3/uL 211 MPV (8.0-11.0) fL 9.6 Immature Gran % % 0.3 Neutrophils % % 69.2 Lymphocytes % % 13.1 Monocytes % % 13.8 Eosinophils % % 2.9 Basophils % % 0.7 Nucleated RBC % (0.0-0.3) % 0.0 Absolute Neutrophils (1.2-6.7) 10^3/uL 7.03 H Absolute Lymphocytes (1.2-3.4) 10^3/uL 1.33 Absolute Monocytes (0.1-0.8) 10^3/uL 1.40 H Absolute Eosinophils (0.0-0.7) 10^3/uL 0.29 Absolute Basophils (0.0-0.2) 10^3/uL 0.07 D-Dimer (<500) ng/mlFEU 995 H Sodium (136-145) mmol/L 134 L Potassium (3.5-5.1) mmol/L 3.6 Chloride (98-107) mmol/L 97 L Carbon Dioxide (21.0-32.0) mmol/L 35.0 H Anion Gap (3-11) mmol/L 2.0 L BUN (7-18) mg/dL 21 H Creatinine (0.55-1.02) mg/dL 2.0 H Est GFR (CKD-EPI 2020) (mL/min/1.73m2) 24.33 Glucose (74-106) mg/dL 118 H Calcium (8.5-10.1) mg/dL 8.5 Magnesium (1.8-2.4) mg/dL 2.1 Total Bilirubin (0.2-1.0) mg/dL 0.8 AST (15-37) U/L 13 L ALT (14-59) U/L 14 Alkaline Phosphatase (46-116) U/L 78 Troponin I (< or =60) ng/L < 50 NT-Pro-B Natriuret Pep (<300) pg/mL 9113 H Total Protein (6.4-8.2) g/dL 7.1 Albumin (3.4-5.0) g/dL 2.5 L Lipase (16-77) U/L 21 TSH (0.36-3.74) uIU/mL 5.46 H Free T4 (0.76-1.46) ng/dL 1.26 COVID-19 Source Nasopharynx SARS-CoV-2 (PCR) (Negative) Negative Influenza Type A (PCR) (Negative) Negative Influenza Type B (PCR) (Negative) Negative RSV (PCR) (Negative) Negative Medical Decision Making Complex 83-year-old female with intermittent chest pain and worsening dyspnea, on exam she is dyspneic with even with speech, and she has interstitial edema with bilateral pleural effusions on chest x-ray, I think patient is presenting in acute CHF, BNP is 9000 I do not have comparison, troponin is negative with 3 days of symptoms I think 1 troponin is reasonable at this time. I did order a D-dimer and it slightly elevated at 978, however I have low suspicion that this is a pulmonary embolism and I do not think it is unreasonable to observe patient and with improvement with CHF management to withhold undergoing diagnostic imaging to evaluate for PE. Patient denies any history of pulmonary embolism and takes Eliquis predominantly for atrial fibrillation history. She has no swelling or tenderness to her calves. She has history of chronic renal failure and her creatinine is baseline for her at 2, her GFR is 25 unfortunately show she is not able to have a CTA, I think patient would also benefit from an echocardiogram. Patient requiring continuous oxygen, 2 L, baseline is in the evening only. Does use CPAP at night. No obvious evidence of cardiac tamponade. I will initiate 5 mg of metoprolol for atrial fibrillation, 40 mg of IV Lasix for CHF and admit to the hospital for continued evaluation and observation. Case was discussed with Dr. Nichols who is agreeable to admitting the patient at this time. Quality:SDPR Health Related Social Needs: No Data to Display Critical Care Time Critical Care Time Attestation: Approximately 45 minutes of critical care time secondary to acute CHF exacerbation with hypoxia requiring oxygen supplementation for respiratory failure, IV Lasix administration, IV metoprolol administration for atrial fibrillation, admission to the hospital for continued observation, diagnostic imaging and lab interpretation and review [facility] All Active Problems (Updated 01/09/24 @ 23:30 by MARLYS Pantoja) CRF (chronic renal failure) (Acute) Respiratory failure (Acute) Pleural effusion (Acute) CHF (congestive heart failure) (Chronic) Acute dyspnea (Acute) Bleeding hemorrhoids (Acute) Left arm pain (Acute) Hypokalemia (Acute) Edema of left upper extremity (Chronic) Depression (Chronic) COPD (chronic obstructive pulmonary disease) (Chronic) Colitis (Acute) Lower GI bleed (Acute) Acute blood loss anemia (Acute) Diverticulosis (Chronic) Chronic atrial fibrillation (Chronic) Acute GI bleeding (Acute) Anticoagulant long-term use (Acute) Anemia (Chronic) (HFpEF) heart failure with preserved ejection fraction (Chronic) Social History Smoking/Tobacco Use Status: Former Tobacco Use Smoking risk assessment performed?: Yes Housing: [facility]
--- NOTE | 2024-01-09 23:30 | W.PM.HP.N ---
Date of service: 01/09/24 Time of Service: 23:31 Assessment and Plan Assessment and plan (1) (HFpEF) heart failure with preserved ejection fraction: Status: Acute Assessment and plan: The patient comes in today due to 24 hour of symptoms to include substernal chest pain and dyspnea. On arrival to the ED she was dyspneic and on my exam she is still having issues w/ completing her sentences. Her PMH includes pAFIB and HFw/PEF. She did have a recent hospitalization due to GIB secondary to Eliquis but today her hemoglobin is 9 compared w/ 7.6 on 01/04. She does not report of any melena or hematochezia. We will continue to monitor her H/H and if there is a decrease then obtain a fecal stool occult. Her BNP >9000 along w/ CXR which shows bilateral pleural effusion along w/ increased interstitial markings is consistent w/ acute on chronic HFw/PEF. We should obtain an Echo as well as troponin. Her infectious disease workup is negative for COVID 19 and influenza. She has been treated in the ED w/ Lasix 40mg x1, Metoprolol 5mg x1 and Albuterol nebs which has resulted in improvement of her dyspnea. She is currently on her baseline 2L NC qhs maintaining a normal oxygen saturation. -Recommend to tx w/ HFw/PEF w/ Lasix 40mg tid. Re-evaluate Lasix after 3 doses and titrate to response. Her baseline dose is Lasix 40mg bid -Monitor daily weights, I/O, low salt diet and fluid restriction -Obtain Echo -Obtain Troponin x2 & EKG -Monitor H/H for recent GIB - Defer Lovenox for now until hemoglobin is stable x2 and we can Hep/Lovenox SQ -Low suspicion for PE but the ER obtained a D-dimer which is elevated and we should obtain a V/Q scan to rule out PE Full Code Surrogate Decision Maker -Kimberly Pandey (niece) -[phone] Qualifiers: Heart failure chronicity: chronic Qualified Code(s): I50.32 - Chronic diastolic (congestive) heart failure (2) Chronic atrial fibrillation: Status: Chronic Assessment and plan: -Cont w/ ASA 81mg daily for anticoagulation -She is not on any DOAC due to history of GIB -Rate control w/ Metoprolol Succinate ER 100mg bid (3) Hypertension: Status: Chronic Assessment and plan: -Cont w/ Metoprolol Succinate ER 100mg bid -Cont w/ Norvasc 5mg daily Qualifiers: Hypertension type: primary hypertension Qualified Code(s): I10 - Essential (primary) hypertension (4) Hyperlipidemia: Status: Acute Assessment and plan: -Cont w/ Lipitor 20mg daily Qualifiers: Hyperlipidemia type: unspecified Qualified Code(s): E78.5 - Hyperlipidemia, unspecified (5) Depression: Status: Chronic Assessment and plan: -Cont w/ Fluoxetine 20mg daily Qualifiers: Depression Type: other depression Qualified Code(s): F32.89 - Other specified depressive episodes (6) COPD (chronic obstructive pulmonary disease): Status: Chronic Assessment and plan: -Hold Albuterol inhaler w/ tachycardia -Cont w/ Spiriva Respimat Qualifiers: COPD type: unspecified COPD Qualified Code(s): J44.9 - Chronic obstructive pulmonary disease, unspecified (7) TAWANA (obstructive sleep apnea): Status: Chronic Assessment and plan: -Cont w/ Oxygen 2L NC qhs -Cont w/ CPAP qhs History of Present Illness History of Present Illness Chief Complaint: Chest pain and shortness of breath Consults Consult date: 01/09/24 Narrative: The patient is a 83 y/o C F w/ PMH DM2, TAWANA on CPAP w/ 2L NC qhs, HFw/PEF and paroxysmal atrial fibrillation who comes in today due to acute onset of chest pain and shortness of breath which began yesterday. She describes her chest pain located in the substernal area without any radiation to the carotids or in between her shoulder blades. Her pain has been constant and has been progressively worse with its intensity. She does not report of any aggravating or alleviating symptoms. Associated symptoms include palpitations, non-productive cough, wheezing and dyspnea at rest. She has difficulty in finishing her sentences. She does not weigh herself regularly and is unclear of her baseline weight. She denies any increasing lower extremity edema. She denies any recent increased oral liquid intake, increased salt intake and denies any skipped doses of her medications. She denies any fever, chills or night sweats. She has no abdominal pain, nausea, vomiting, diarrhea, melena or hematochezia. She has been bedbound for the past two weeks. She was recently discharged on 01/05 due to acute lower GI bleed secondary to Eliquis. Her Eliquis was discontinued and transitioned to Aspiring. No surgical or endoscopic intervention was done. Review of Systems Constitutional Constitutional: Denies chills, Reports fatigue, Denies fever(s), Reports headache(s), Denies night sweats, Reports poor appetite, Denies snoring, Denies weight gain and Denies weight loss Eyes Eyes: Denies blurry vision and Reports eye pain ENT Ears, Nose, Mouth, and Throat: Denies dysphagia, Denies dizziness, Reports headache(s), Denies neck pain, Denies odynophagia, Denies tinnitus, Reports sore throat and Denies throat swelling Cardiovascular Cardiovascular: Reports chest pain, Reports chest pain at rest, Reports irregular heart rhythm, Denies leg edema, Denies lightheadedness, Denies radiating jaw, neck or arm pain and Reports dyspnea Respiratory Respiratory: Reports cough, Denies hemoptysis, Denies pain on inspiration, Denies pain with cough, Reports dyspnea, Denies snoring, Denies stridor and Reports wheezing Gastrointestinal Gastrointestinal: Denies abdominal pain, Denies hematochezia, Denies change in stool character, Denies coffee ground emesis, Denies dysphagia and Denies odynophagia Genitourinary Genitourinary: Denies hematuria and Denies dysuria Musculoskeletal Musculoskeletal: Denies arthralgias, Denies joint swelling, Denies neck pain and Denies tingling Neurologic Neurologic: Denies confusion, Denies dizziness, Reports headache(s), Denies localized weakness and Denies tingling Psychiatric Psychiatric: Denies confusion and Denies depression Endocrine Endocrine: Reports fatigue Allergic/Immunologic Allergic/Immunologic: Denies throat swelling and Reports wheezing PFSH All Active Problems (Updated 01/10/24 @ 00:23 by Calixto Nichols MD) TAWANA (obstructive sleep apnea) (Chronic) Hyperlipidemia (Acute) Hypertension (Chronic) CRF (chronic renal failure) (Acute) Respiratory failure (Acute) Pleural effusion (Acute) CHF (congestive heart failure) (Chronic) Acute dyspnea (Acute) Bleeding hemorrhoids (Acute) Left arm pain (Acute) Hypokalemia (Acute) Edema of left upper extremity (Chronic) Depression (Chronic) COPD (chronic obstructive pulmonary disease) (Chronic) Colitis (Acute) Lower GI bleed (Acute) Acute blood loss anemia (Acute) Diverticulosis (Chronic) Chronic atrial fibrillation (Chronic) Acute GI bleeding (Acute) Anticoagulant long-term use (Acute) Anemia (Chronic) (HFpEF) heart failure with preserved ejection fraction (Acute) Social History Smoking/Tobacco Use Status: Former Tobacco Use Smoking risk assessment performed?: Yes Housing: [facility] Meds Allergies and Home Medications Allergies Allergy/AdvReac Type Severity Reaction Status Date / Time duloxetine [From Cymbalta] Allergy Unknown Unknown Verified 01/10/24 00:14 hydrochlorothiazide Allergy Unknown Unknown Verified 01/10/24 00:14 indomethacin [From Indocin] Allergy Unknown Unknown Verified 01/10/24 00:14 lisinopril Allergy Unknown Unknown Verified 01/10/24 00:14 oxybutynin Allergy Unknown Unknown Verified 01/10/24 00:14 tolmetin Allergy Unknown Unknown Verified 01/10/24 00:14 triamterene Allergy Unknown Unknown Verified 01/10/24 00:14 banana Allergy Unknown Verified 01/10/24 00:14 Home Medications Medication Instructions Recorded Confirmed Type acetaminophen 500 mg tablet 1,000 mg PO Q8H PRN PRN 01/02/24 01/02/24 History (Tylenol Extra Strength) amlodipine 5 mg tablet 5 mg PO DAILY 01/02/24 01/02/24 History atorvastatin 20 mg tablet 20 mg PO QHS 01/02/24 01/02/24 History famotidine 20 mg tablet (Acid 20 mg PO DAILY 01/02/24 01/02/24 History Controller) fesoterodine 8 mg tablet,extended 8 mg PO DAILY 01/02/24 01/02/24 History release 24 hr fluoxetine 20 mg capsule 20 mg PO DAILY 01/02/24 01/02/24 History fluticasone propionate 50 1 spray intranasal BID 01/02/24 01/02/24 History mcg/actuation nasal spray,suspension (24 Hour Allergy Relief) furosemide 40 mg tablet 40 mg PO BID 01/02/24 01/02/24 History metoprolol succinate 100 mg 100 mg PO DAILY 01/02/24 01/02/24 History tablet,extended release 24 hr (Toprol XL) mirabegron 50 mg tablet,extended 50 mg PO DAILY 05/25/24 05/25/24 History release 24 hr (Myrbetriq) tiotropium bromide 2.5 2 inh inhalation DAILY 01/02/24 01/02/24 History mcg/actuation mist for inhalation (Spiriva Respimat) trazodone 50 mg tablet 50 mg PO QHS PRN 01/02/24 01/02/24 History cholecalciferol (vitamin D3) 25 75 mcg PO DAILY 01/05/24 01/05/24 History mcg (1,000 unit) tablet docusate sodium 100 mg capsule 100 mg PO BID #0 caps 01/05/24 Rx (Colace) phenylephrine 0.25 %-mineral oil 1 applic RI BID #0 grams 01/05/24 Rx 14 %-petrolatm 74.9 % rectal ointment (Preparation H) aspirin 81 mg tablet,delayed 81 mg PO BID #60 tabs 01/06/24 Rx release (Enteric Coated Aspirin) ferrous sulfate 325 mg (65 mg 325 mg PO Q48H #15 tabs 01/06/24 Rx iron) tablet Exam Const General: cooperative and no acute distress Nutritional Appearance: overweight Orientation: alert, awake and oriented x3 Limitations: mental status not altered HENMT Head: normal to inspection and atraumatic Ears: external ears normal General nose exam: external nose normal Face and sinus: normal facial exam Mouth: oral mucosae normal Eyes General: appearance normal, both eyes and all related structures Eyelids: eyelids normal Neck Neck: normal visual inspection, full ROM and no lymphadenopathy Chest Chest: normal inspection of the chest Other: R gauze on chest w/o any swelling, erythema or warmth Resp Effort & Inspection: not able to speak in complete sentences, no audible wheezes, no cough, no stridor, no tracheal deviation and No prolonged expiratory phase Auscultation: diminished lung sounds Cardio Rate: regular rate Rhythm: abnormal rhythm Heart Sounds: S1 normal and S2 normal GI Inspection: normal to inspection Palpation: soft Percussion: normal to percussion Auscultation: normal bowel sounds Skin General skin exam: no rashes or lesions noted, no mottling, no petechiae and no purpura Rashes: rash noted Neuro Cognition: normal cognition Speech: speech normal Extrem General: normal to inspection and capillary refill normal Psych Appearance: grossly normal Mental Status: mental status grossly normal Speech and Movement: speech and movement normal Mood: congruent mood Results Imaging Chest x-ray: report reviewed and image reviewed Labs 01/09/24 21:15 01/09/24 21:15 Labs: Laboratory Results - last 24 hr 01/09/24 21:15 WBC 10.15 RBC 3.14 L Hgb 9.0 L Hct 28.2 L MCV 90 MCH 28.7 MCHC 31.9 L RDW 16.2 H Plt Count 211 MPV 9.6 Immature Gran % 0.3 Neutrophils % 69.2 Lymphocytes % 13.1 Monocytes % 13.8 Eosinophils % 2.9 Basophils % 0.7 Nucleated RBC % 0.0 Absolute Neutrophils 7.03 H Absolute Lymphocytes 1.33 Absolute Monocytes 1.40 H Absolute Eosinophils 0.29 Absolute Basophils 0.07 D-Dimer 995 H Sodium 134 L Potassium 3.6 Chloride 97 L Carbon Dioxide 35.0 H Anion Gap 2.0 L BUN 21 H Creatinine 2.0 H Est GFR (CKD-EPI 2020) 24.33 Glucose 118 H Calcium 8.5 Magnesium 2.1 Total Bilirubin 0.8 AST 13 L ALT 14 Alkaline Phosphatase 78 Troponin I < 50 NT-Pro-B Natriuret Pep 9113 H Total Protein 7.1 Albumin 2.5 L Lipase 21 TSH 5.46 H Free T4 1.26 COVID-19 Source Nasopharynx SARS-CoV-2 (PCR) Negative Influenza Type A (PCR) Negative Influenza Type B (PCR) Negative RSV (PCR) Negative Last Vital Signs Temp 36.6 C 01/09/24 22:35 Pulse 115 H 01/09/24 23:02 Resp 16 01/09/24 22:35 BP 171/135 H 01/09/24 22:35 Pulse Ox 94 01/09/24 22:35 Time Spent Time spent with Patient: 40-54 minutes Time was spent: preparing to see the patient(eg.review tests), obtaining and/or reviewing separately otained hiistory, ordering medications,tests, procedures, referring, communicating with other health neonatal intensive care unit nurse, indepentently interpreting results and counseling the patient
[2024-01-10] VITALS (20 sets, daily range): BP systolic 120–165; BP diastolic 78–100; PULSE 86–110; RESP 12–24; TEMP 35.6–36.9; O2SAT 94–99
[2024-01-10 01:00] LABS: Troponin I < 50 ng/L (< or =60)
--- NOTE | 2024-01-10 02:01 | RESPIRATORY ---
Pt. uses CPAP machine for TAWANA, has brought in here in hospital. It's ResMed airsense 10 with humidifier attached, uses supplement of O2 2L/min. RT inspected device, it is in good condition, water is filled out and pt. currently on CPAP tolerating well. DME is [facility].
[2024-01-10 07:06] LABS: HCT 26.1 % (36.0-46.0); HGB 8.4 g/dL (11.2-15.7); MCH 28.4 pg (27.0-33.0); MCHC 32.2 % (32.0-36.0); MCV 88 fL (80-95); MPV 10.6 fL (8.0-11.0); Platelet Count 193 10^3/uL (130-400); RBC 2.96 10^6/uL (3.93-5.22); RDW 16.2 % (11.7-14.6); WBC 7.35 10^3/uL (4.4-10.8)
[2024-01-10 07:18] LABS: Anion Gap 6.1 mmol/L (3-11); BUN 20 mg/dL (7-18); CO2 32.9 mmol/L (21.0-32.0); CREATININE 1.8 mg/dL (0.55-1.02); Calcium 8.5 mg/dL (8.5-10.1); Chloride 97 mmol/L (98-107); Estimated GFR 27.61 (mL/min/1.73m2); Glucose 98 mg/dL (74-106); Potassium 3.2 mmol/L (3.5-5.1); Sodium 136 mmol/L (136-145)
[2024-01-10 07:25] LABS: Troponin I < 50 ng/L (< or =60)
[2024-01-10] MEDS: Tiotropium Bromide-Respimat 10 PUFF INH 2 PUFF IH (08:01)
[2024-01-10] MEDS: FLUoxetine 20 MG CAP PO (08:31)
[2024-01-10] MEDS: Aspirin E.C. 81 MG TABEC PO ×2 (08:31→20:24)
[2024-01-10] MEDS: Ferrous Sulfate 325 MG TAB PO (08:31)
[2024-01-10] MEDS: Potassium Chloride Liquid 20 MEQ PKT 40 MEQ PO (08:31)
[2024-01-10] MEDS: amLODIPine 5 MG TAB PO (08:31)
[2024-01-10] MEDS: Spironolactone 25 MG TAB PO (08:32)
[2024-01-10] MEDS: Metoprolol CR 100 MG TABCR PO (08:32)
[2024-01-10] MEDS: Famotidine 20 MG TAB PO (08:32)
[2024-01-10] MEDS: Docusate Sodium 100 MG CAP PO ×2 (08:32→20:24)
[2024-01-10] MEDS: Prochlorperazine 10 MG/2 ML VIAL 5 MG IVP ×2 (08:34→15:52)
[2024-01-10] MEDS: Mirabegron 25 MG TABCR PO (08:39)
--- NOTE | 2024-01-10 09:09 | PGE_ITS ---
Date of Service Date of service: 01/10/24 Time of Service: 09:09 Assessment and Plan Assessment and plan (1) (HFpEF) heart failure with preserved ejection fraction: Status: Acute Assessment and plan: Continue Lasix 40mg IV tid. Re-evaluate Lasix after 3 doses and titrate to response. Her baseline home dose is Lasix 40mg bid -Monitor daily weights, I/O: failed purewick - christensen catheter for accuracy, low salt diet and fluid restriction -Obtain Echo - Thursday -Trops neg -Monitor H/H for recent GIB - Defer Lovenox for now until hemoglobin is stable x2 and we can Hep/Lovenox SQ -Low suspicion for PE but the ED obtained a D-dimer which is elevated Full Code Surrogate Decision Maker -Kimberly Pandey ([facility]) -[phone] Qualifiers: Heart failure chronicity: chronic Qualified Code(s): I50.32 - Chronic diastolic (congestive) heart failure (2) Chronic atrial fibrillation: Status: Chronic Assessment and plan: -Cont w/ ASA 81mg daily for anticoagulation -She is not on any DOAC due to history of GIB -Rate control w/ Metoprolol Succinate ER 100mg bid (3) Hypertension: Status: Chronic Assessment and plan: -Cont w/ Metoprolol Succinate ER 100mg bid -Cont w/ Norvasc 5mg daily Qualifiers: Hypertension type: primary hypertension Qualified Code(s): I10 - Essential (primary) hypertension (4) Hyperlipidemia: Status: Acute Assessment and plan: -Cont w/ Lipitor 20mg daily Qualifiers: Hyperlipidemia type: unspecified Qualified Code(s): E78.5 - Hyperlipidemia, unspecified (5) Depression: Status: Chronic Assessment and plan: -Cont w/ Fluoxetine 20mg daily Qualifiers: Depression Type: other depression Qualified Code(s): F32.89 - Other specified depressive episodes (6) COPD (chronic obstructive pulmonary disease): Status: Chronic Assessment and plan: -Hold Albuterol inhaler w/ tachycardia -Cont w/ Spiriva Respimat Qualifiers: COPD type: unspecified COPD Qualified Code(s): J44.9 - Chronic obstructive pulmonary disease, unspecified (7) TAWANA (obstructive sleep apnea): Status: Chronic Assessment and plan: -Cont w/ Oxygen 2L NC qhs -Cont w/ CPAP qhs Subjective Subjective Patient reports: no new complaints, tolerating a regular diet, no bowel movement and afebrile; denies diarrhea, nausea or vomiting Exam Const General: cooperative and no acute distress Nutritional Appearance: overweight Orientation: alert, awake and oriented x3 Limitations: mental status not altered HENMT Head: normal to inspection and atraumatic Ears: external ears normal General nose exam: external nose normal Face and sinus: normal facial exam Mouth: oral mucosae normal Eyes General: appearance normal, both eyes and all related structures Eyelids: eyelids normal Neck Neck: normal visual inspection, full ROM and no lymphadenopathy Chest Chest: normal inspection of the chest Other: R gauze on chest w/o any swelling, erythema or warmth Resp Effort & Inspection: no audible wheezes, no cough, no stridor, no tracheal deviation and No prolonged expiratory phase Auscultation: diminished lung sounds Cardio Rate: regular rate Rhythm: abnormal rhythm Heart Sounds: S1 normal and S2 normal GI Inspection: normal to inspection Palpation: soft Percussion: normal to percussion Auscultation: normal bowel sounds Skin General skin exam: no rashes or lesions noted, no mottling, no petechiae and no purpura Rashes: rash noted Neuro Cognition: normal cognition Speech: speech normal Extrem General: normal to inspection and capillary refill normal Psych Appearance: grossly normal Mental Status: mental status grossly normal Speech and Movement: speech and movement normal Mood: congruent mood Objective Last Vital Signs Temp 36.4 C L 01/10/24 07:24 Pulse 95 H 01/10/24 07:24 Resp 18 01/10/24 07:24 BP 135/84 01/10/24 07:24 Pulse Ox 97 01/10/24 07:24 Laboratory Results - last 24 hr 01/09/24 01/10/24 01/10/24 21:15 00:17 00:38 WBC 10.15 RBC 3.14 L Hgb 9.0 L Hct 28.2 L MCV 90 MCH 28.7 MCHC 31.9 L RDW 16.2 H Plt Count 211 MPV 9.6 Immature Gran % 0.3 Neutrophils % 69.2 Lymphocytes % 13.1 Monocytes % 13.8 Eosinophils % 2.9 Basophils % 0.7 Nucleated RBC % 0.0 Absolute Neutrophils 7.03 H Absolute Lymphocytes 1.33 Absolute Monocytes 1.40 H Absolute Eosinophils 0.29 Absolute Basophils 0.07 D-Dimer 995 H Sodium 134 L Potassium 3.6 Chloride 97 L Carbon Dioxide 35.0 H Anion Gap 2.0 L BUN 21 H Creatinine 2.0 H Est GFR (CKD-EPI 2020) 24.33 Glucose 118 H Calcium 8.5 Magnesium 2.1 Total Bilirubin 0.8 AST 13 L ALT 14 Alkaline Phosphatase 78 Troponin I < 50 Cancelled < 50 NT-Pro-B Natriuret Pep 9113 H Total Protein 7.1 Albumin 2.5 L Lipase 21 TSH 5.46 H Free T4 1.26 COVID-19 Source Nasopharynx SARS-CoV-2 (PCR) Negative Influenza Type A (PCR) Negative Influenza Type B (PCR) Negative RSV (PCR) Negative 01/10/24 05:50 WBC 7.35 RBC 2.96 L Hgb 8.4 L Hct 26.1 L MCV 88 MCH 28.4 MCHC 32.2 RDW 16.2 H Plt Count 193 MPV 10.6 Immature Gran % Neutrophils % Lymphocytes % Monocytes % Eosinophils % Basophils % Nucleated RBC % Absolute Neutrophils Absolute Lymphocytes Absolute Monocytes Absolute Eosinophils Absolute Basophils D-Dimer Sodium 136 Potassium 3.2 L Chloride 97 L Carbon Dioxide 32.9 H Anion Gap 6.1 BUN 20 H Creatinine 1.8 H Est GFR (CKD-EPI 2020) 27.61 Glucose 98 Calcium 8.5 Magnesium Total Bilirubin AST ALT Alkaline Phosphatase Troponin I < 50 NT-Pro-B Natriuret Pep Total Protein Albumin Lipase TSH Free T4 COVID-19 Source SARS-CoV-2 (PCR) Influenza Type A (PCR) Influenza Type B (PCR) RSV (PCR) Time Spent with Patient Time Spent with Patient: 35-49 minutes Time was spent: preparing to see the patient(eg.review tests), ordering medications,tests, procedures, referring, communicating with other health pet care technician, indepentently interpreting results, counseling the patient and care coordination
[2024-01-10] MEDS: Furosemide 40 MG/4 ML VIAL IVP ×3 (09:25→20:25)
--- NOTE | 2024-01-10 09:27 | PDOC.CMIN ---
Date of service: 01/10/24 Time of Service: 09:29 Care Management Initial Assmt Initial Assessment Reason for Hospitalization: acute on chronic HF wPEF Functional Status/Living Situation Patient Presentation: Paige was lying in bed when CM met with her. She appeared short of breath while talking; she is on 2LO2 currently. She discussed how she has not been at [facility] long, and that it was the only rehab bed available when [place] was [place] [facility] would like to be placed closer to [place]- near [place]. CM explained that our plan will be to have her return to [facility] once she is medically cleared, and that the director social service at the facility can help her transition to another facility. CM will reach out to [facility] admissions to determine if there is a bed available at [facility], which is close to her home. CM will continue to follow. Town of Residence: [place] Resides with: Other (SNF) Significant Other/Family: Local Caregiver/Guardian: misha Cali in [place] Employment Status: Retired Instrumental Activities of Daily Living (ADLs): Requires support Medications Medication Management: No Issues/Barriers identified Physical Functioning/Mobility Assistive Device: w/c, facility noemí lift for transfers, supplemental O2- 2L baseline Advance Directives Advance Directives: Do you have an Advance Directive: Y 01/02/24 03:32 AD On File at [facility]: Y 01/02/24 03:32 Date Asked 01/07/24 01/07/24 12:30 AD Date Reviewed 01/10/24 01/10/24 10:06 COLST On File at [facility] COLST Date Scanned Code Status Resuscitation Status Full Code Portal Pt does not currently have a portal and education provided: Yes Insurance Coverage/Financial Issues Insurance: [facility]. [facility]. Care Team Visit Care Team Role Provider Type Blade Thayer Primary Care Provider NON-[facility] STAFF PHYSICIAN MARLYS Pantoja Emergency Provider PHYSICIANS TEACHING ARTIST Calixto Nichols MD Admit Provider [facility] STAFF PHYSICIAN Attending Provider Discharge Anticipated Barriers to Discharge: Medical Status Patient/Family Education Needs: Review discharge instructions, discuss Ask Me Three Transportation: EMS Plan: Anticipate Paige will return to [facility] once medically cleared. She will likely transport via EMS due to limited mobility and need for noemí lift transfers. She will follow up with facility providers and her discharge plan of care. CM will continue to follow. PFSH All Active Problems (Updated 01/10/24 @ 00:23 by Calixto Nichols MD) TAWANA (obstructive sleep apnea) (Chronic) Hyperlipidemia (Acute) Hypertension (Chronic) CRF (chronic renal failure) (Acute) Respiratory failure (Acute) Pleural effusion (Acute) CHF (congestive heart failure) (Chronic) Acute dyspnea (Acute) Bleeding hemorrhoids (Acute) Left arm pain (Acute) Hypokalemia (Acute) Edema of left upper extremity (Chronic) Depression (Chronic) COPD (chronic obstructive pulmonary disease) (Chronic) Colitis (Acute) Lower GI bleed (Acute) Acute blood loss anemia (Acute) Diverticulosis (Chronic) Chronic atrial fibrillation (Chronic) Acute GI bleeding (Acute) Anticoagulant long-term use (Acute) Anemia (Chronic) (HFpEF) heart failure with preserved ejection fraction (Acute) Social History Smoking/Tobacco Use Status: Former Tobacco Use Smoking risk assessment performed?: Yes Housing: detention Readmission Within the Past 30 Days Yes or No: Yes Date of First Admission Date of 1st Admission: 01/02/24 Date of this Admission Date of Admission: 01/09/24 This admission was: Through ED Office Visit Since 1st Admission Have you seen your PCP in the office since discharge?: No Describe barriers for scheduling or getting an appointment: Paige is currently residing at a SNF I. Interview patient and/or Family Difficulty reaching your doctor or getting an office appt?: Yes How do you take your medications and set up your pills?: assistance by staff at SNF Did you feel ready for discharge when you left the last time: Yes Reason there were no orders at discharge: SNF discharge How do you think you became sick enough to come back?: very short of breath ED visits How many ED visits in the past 12 months: 1 Assessment for Readmission Summary of readmission circumstances, based upon interviews: Paige presented to the ED after she had been at [facility] for less than a week, for a GI bleed. She stated that she felt better when she was discharged, but also stated that she just agrees with the doctor. She stated that she felt that she needed to return when she was feeling significantly more out of breath while at the facility. She is currently admitted for acute on chronic heart failure with preserved EF. CM will continue to follow. SDOH(Care Management) Screening Will the Patient Participate in the Screening?: Declined to provide
--- NOTE | 2024-01-10 09:42 | NUR.NOTE ---
Accessed chart, to determine disposition, call from [facility] regarding this. Nursing Note:
[2024-01-10] MEDS: Potassium Chloride 20 MEQ TABCR PO ×2 (13:09→20:24)
[2024-01-10] MEDS: Normal Saline Flush 10 ML SYR IVP ×3 (13:43→20:25)
[2024-01-10 14:17] LABS: HCT 28.5 % (36.0-46.0); HGB 9.1 g/dL (11.2-15.7)
[2024-01-10] MEDS: Atorvastatin 20 MG TAB PO (20:24)
[2024-01-11] VITALS (10 sets, daily range): BP systolic 131–138; BP diastolic 80–96; PULSE 60–95; RESP 16–20; TEMP 35.8–37; O2SAT 94–100
[2024-01-11 06:35] LABS: Abs Immature Grans 0.01 10^3/uL (0.0-0.06); Absolute Basophil Count 0.08 10^3/uL (0.0-0.2); Absolute Eosinophil Count 0.38 10^3/uL (0.0-0.7); Absolute Neutrophil Count 4.17 10^3/uL (1.2-6.7); Basophils % 1.2 %; Eosinophils % 5.6 %; HGB 8.8 g/dL (11.2-15.7); Immature Grans % 0.1 %; Lymphocytes % 17.5 %; MCH 28.4 pg (27.0-33.0); MCHC 32.6 % (32.0-36.0); MCV 87 fL (80-95); MPV 10.1 fL (8.0-11.0); Monocytes % 14.6 %; Platelet Count 229 10^3/uL (130-400); RDW 16.1 % (11.7-14.6); RDW-SD 51.8 fL; WBC 6.84 10^3/uL (4.4-10.8)
[2024-01-11 06:52] LABS: Anion Gap 6.7 mmol/L (3-11); BUN 20 mg/dL (7-18); CO2 32.3 mmol/L (21.0-32.0); CREATININE 2.1 mg/dL (0.55-1.02); Calcium 8.4 mg/dL (8.5-10.1); Chloride 97 mmol/L (98-107); Estimated GFR 22.95 (mL/min/1.73m2); Glucose 108 mg/dL (74-106); Potassium 3.8 mmol/L (3.5-5.1); Sodium 136 mmol/L (136-145)
[2024-01-11] MEDS: Tiotropium Bromide-Respimat 10 PUFF INH 2 PUFF IH (07:39)
[2024-01-11] MEDS: Potassium Chloride 20 MEQ TABCR PO (09:28)
[2024-01-11] MEDS: Docusate Sodium 100 MG CAP PO ×2 (09:28→20:57)
[2024-01-11] MEDS: Metoprolol CR 100 MG TABCR PO (09:28)
[2024-01-11] MEDS: FLUoxetine 20 MG CAP PO (09:28)
[2024-01-11] MEDS: Spironolactone 25 MG TAB PO (09:29)
[2024-01-11] MEDS: Aspirin E.C. 81 MG TABEC PO ×2 (09:29→20:56)
[2024-01-11] MEDS: amLODIPine 5 MG TAB PO (09:29)
[2024-01-11] MEDS: Fluticasone NASAL SPRAY 16 GM BTL NS ×2 (09:29→21:17)
--- NOTE | 2024-01-11 09:49 | PGE_ITS ---
Date of Service Date of service: 01/11/24 Time of Service: 09:49 Assessment and Plan Assessment and plan (1) (HFpEF) heart failure with preserved ejection fraction: Status: Acute Assessment and plan: Continue Lasix 40mg IV tid for 2 more doses then re-evaluate and titrate to response. The patient was on Lasix 40mg BID OPT Monitor -daily weights, -I/O: christensen catheter for strict I&O as purewick failed -Diet: Heart healthy: low Na diet and fluid restriction -US Echo completed and result pending -Monitor H/H for recent GIB -Pharmacological DVT prophylaxois deferred initially; hemoglobin is stable x2 plat 229, discharge orders were -Heparin SQ Q12 for DVT prophylaxis -Fe was 22 on 01/04 will give one dose of iron sucrose IV and re-evaluate in AM -Low suspicion for PE as SOB and sat were responsive to O2 supplementation but the ED obtained a D-dimer which was elevated, not considering a CTA at this time as patient's clinical picture is improving -IS ordered: diminished lung bases; on CPAP at night Surrogate Decision Maker -Kimberly Pandey ([facility]) -[phone] Qualifiers: Heart failure chronicity: chronic Qualified Code(s): I50.32 - Chronic diastolic (congestive) heart failure (2) Chronic atrial fibrillation: Status: Chronic Assessment and plan: -On ASA 81mg daily for anticoagulation as per COMPOUNDER -She is not on any DOAC due to history of GIB as per surgical consult from previous stay -Continue rate control w/ Metoprolol Succinate ER (3) Hypertension: Status: Chronic Assessment and plan: -Cont w/ Metoprolol Succinate ER -Was on Norvasc 5mg daily s/p consult with Jennifer Buchanan Pharmacist, the patient had filled a script for Norvasc 10 mg daily on 12/02/2023; considering this dosage if BP remains stable while IV loop diuretic in progress. Qualifiers: Hypertension type: primary hypertension Qualified Code(s): I10 - Essential (primary) hypertension (4) Hyperlipidemia: Status: Acute Assessment and plan: -Cont atorvastatin 20mg orally daily Qualifiers: Hyperlipidemia type: unspecified Qualified Code(s): E78.5 - Hyperlipidemia, unspecified (5) Depression: Status: Chronic Assessment and plan: -On Fluoxetine 20mg orally daily Qualifiers: Depression Type: other depression Qualified Code(s): F32.89 - Other specified depressive episodes (6) COPD (chronic obstructive pulmonary disease): Status: Chronic Assessment and plan: -Hold Albuterol inhaler w/ tachycardia-PRN Xopenex ordered -On w/ Spiriva Respimat Qualifiers: COPD type: unspecified COPD Qualified Code(s): J44.9 - Chronic obstructive pulmonary disease, unspecified (7) TAWANA (obstructive sleep apnea): Status: Chronic Assessment and plan: -Continue home Oxygen 2L NC qhs -Evaluate if increased supplementation needed -Continue CPAP qhs with O2 bleed (8) Discharge planning issues: Status: Acute Assessment and plan: Return to [facility] when medically cleared CM to f/u PT ordered Discussed with Dr. Hennessy Subjective Subjective Patient reports: feels better, tolerating liquids well, tolerating a regular diet, voiding w/o difficulty, flatus, bowel movement and shortness of breath; denies vomiting or fever Exam Narrative Exam Narrative: Constitutional The patient is in bed comfortable, short of breath on exertion HENMT: Head is atraumatic. Facial structures with normal appearance Neuro:alert and oriented X 3 Resp: Clear upper lung bilaterally, diminished bases L> R Cardio: regular rhythm, S1, S2. GI: Abdomen is large not distended, soft and non tender, bowel sounds are present Integumentary: No skin lesions or rash on exposed skin, old PICC site to right chest covered with clear dressing, no redness Psych: RASS 0-1, congruent mood and normal affect. Objective Last Vital Signs Temp 36.4 C L 01/11/24 07:25 Pulse 95 H 01/11/24 07:25 Resp 20 01/11/24 07:25 BP 134/81 01/11/24 07:25 Pulse Ox 95 01/11/24 07:44 Laboratory Results - last 24 hr 01/10/24 01/11/24 01/11/24 14:05 06:15 06:15 WBC 6.84 RBC 3.10 L Hgb 9.1 L 8.8 L Hct 28.5 L 27.0 L MCV 87 MCH 28.4 MCHC 32.6 RDW 16.1 H Plt Count 229 MPV 10.1 Immature Gran % 0.1 Neutrophils % 61.0 Lymphocytes % 17.5 Monocytes % 14.6 Eosinophils % 5.6 Basophils % 1.2 Nucleated RBC % 0.0 Absolute Neutrophils 4.17 Absolute Lymphocytes 1.20 Absolute Monocytes 1.00 H Absolute Eosinophils 0.38 Absolute Basophils 0.08 Sodium 136 Potassium 3.8 Chloride 97 L Carbon Dioxide 32.3 H Anion Gap 6.7 BUN 20 H Creatinine 2.1 H Est GFR (CKD-EPI 2020) 22.95 Glucose 108 H Calcium 8.4 L Magnesium 2.0 Cancelled Time Spent with Patient Time Spent with Patient: >50 minutes Time was spent: preparing to see the patient(eg.review tests), obtaining and/or reviewing separately otained hiistory, ordering medications,tests, procedures, referring, communicating with other health intensive care medicine specialist, indepentently interpreting results, counseling the patient and care coordination
--- NOTE | 2024-01-11 10:30 | DI.US_ITS ---
APPROVED REPORT EXAM: Comprehensive 2D, Doppler, and color-flow Echocardiogram Patient Location: In-Patient Room/Bed: 212 Power Builder Developer: Iain Persaud RDCS (AE) Indications: Acute on chronic HFw/PEF Other Information Technically limited study due to inability to position patient, body habitus. Conclusion Mild concentric left ventricular hypertrophy. Small left ventricular chamber size. Ejection fractio n is 60%. Wall motion is normal Normal right ventricular size and function Both atria are severely dilated Aortic valve is sclerotic and probably trileaflet. There is mild aortic stenosis. Peak gradient is 32, mean 18 mmHg. Calculated aortic valve area is 1.1 cm??. There is trace aortic regurgitation Mildly thickened mitral leaflets, mitral annular calcification Normal tricuspid valve mild regurgitation estimated right ventricular systolic pressure is 52 mmHg Wall motion Left Ventricle Left ventricular cavity is small. The left ventricular systolic function is normal. The left ventricu lar ejection fraction is within the normal range. Mild concentric left ventricular hypertrophy. There is normal LV segmental wall motion. There is no ventricular septal defect visualized. LVEF is 60%. Right Ventricle The right ventricle is normal size. Right ventricular systolic function is grossly normal. Atria Left atrium is severely dilated. Right atrium is severely dilated. The interatrial septum is intact w ith no evidence for an atrial septal defect. Aortic Valve The Aortic valve is sclerotic. Aortic valve is probably trileaflet. Mild aortic stenosis. Peak aortic valve gradient is 32.32 mmHg. Highest mean aortic valve gradient is 17.70 mmHg. Calculated TRANG by th e continuity equation is 1.1 cm2. Trace aortic regurgitation. Mitral Valve Moderate mitral annular calcification. Mitral valve leaflets are mildly thickened. No evidence of shantel ral valve stenosis. Tricuspid Valve The tricuspid valve is normal in structure. There is no tricuspid valve stenosis. Mild tricuspid regu rgitation. The RVSP is 52.0 mmHg. Pulmonic Valve The pulmonary valve is normal in structure. There is no pulmonic valvular stenosis. There is no pulmo ashutosh valvular regurgitation. Great Vessels The aortic root is normal in size. The ascending aorta is normal in size. Aortic arch is normal in ca liber. The IVC collapses <50% with inspiration. Pericardium There is no pericardial effusion. 2D Dimensions IVSD d PLAX 1.22 cm F: 0.6-1.0 Ao Root d 2.85 cm F: 2.7 - 3.3 LVPW d PLAX 1.20 cm F: 0.6 - 1.0 Ao Asc Diam d 3.01 cm F: 2.3 - 3.1 LVID d PLAX 3.42 cm F: 3.8 - 5.2 LVDs 2.36 cm F: 2.2 - 3.5 LV EF Teichholz 59.9 % FS 31.06 % LV EDV (Teich) 48.0 mL LV ESV (Teich) 19.2 mL Stroke Vol Index (Teich) 13.39 M-Mode TAPSE 1.05 cm (M/F) >1.7 Auto EF LV EDV A4C 62.0 mL LV EDV A2C 62.0 mL LV EDV BP 61.7 mL LV ESV A4C 24.8 mL LV ESV A2C 25.0 mL LV ESV BP 25.1 mL LVEF(%) A4C 60.1 % LVEF(%) A2C 59.6 % LVEF(%) BP 59.3 % LV SV A4C 37.2 ml LV SV A2C 36.9 ml LV SV BP 36.6 ml LV CO A4C 4.0 L/min LV CO A2C 4.2 L/min LV CO BP 4.1 L/min HR A4C 107.14 BPM HR A2C 113.56 BPM LV EDV Index (BP) LA Volume LA Length A4C 6.7 cm LA Length A2C 6.9 cm LA Area A4C s 30.07 cm2 LA Area A2C s 27.94 cm2 LA Vol A4C A-L 114.58 mL LA Vol A2C A-L 96.31 mL LA Vol Biplane A-L 106.4 mL LA Vol/BSA A4C A-L LA Vol/BSA A2C A-L LA Vol/BSA BP A-L 49.5 mL/m2 LA Vol A4C MOD 109.3 mL LA Vol A2C MOD 92.7 mL LA Vol BP MOD 100.6 mL RA Volume RA Area A4C 17.4 cm2 RA ESV A4C (A-L) 43.6mL RA Vol/BSA A4C A-L RA Length A4C 5.9 cm RA ESV A4C (MOD) 40.8mL LV Diastology MV E' medial 0.080 (>0.07 m/s) MV E Vmax 0.99 (0.4-1.3 m/s) MV E' lateral 0.132 (>0.1 m/s) Aortic Valve AoV Vmax 2.84 m/s LVOT Vmax 1.19 m/s AoV Peak Grad 32.3 mmHg LVOT Peak Grad 5.7 mmHg AoV Area (Vmax) 0.91 cm2 LVOT VTI 0.262 m AoV VTI 0.500 m LVOT Mean Grad 3.8 mmHg AoV Mean Sanjeev. 1.97 m/s LVOT SV 57.08 mL AoV Mean Grad 17.7 mmHg LVOT Diam s 1.65 cm AoV Area (VTI) 1.14 cm2 Velocity Ratio 0.42 Pulmonary Valve PV Vmax 1.12 (0.5-1.5 m/s) PV Peak Grad 5.0 mmHg PV Mean Sanjeev 0.87 m/s PV Mean Grad 3.3 mmHg Tricuspid Valve RA Pressure 15.00 mmHg TR Vmax 3.04 m/s TR Peak Grad 37.0 mmHg RVSP (TR) 52.0 mmHg
[2024-01-11] MEDS: Furosemide 40 MG/4 ML VIAL IVP ×3 (10:32→20:55)
[2024-01-11] MEDS: Normal Saline Flush 10 ML SYR IVP ×3 (10:33→20:56)
--- NOTE | 2024-01-11 11:42 | PHA.REVIEW2 ---
Pharmacy Admission Review Admission Clinical Review Admission Pharmacy Review: Hyperlipidemia (Acute) (HFpEF) heart failure with preserved ejection fraction (Acute) duloxetine [From Cymbalta] Allergy (Unknown, Verified 01/10/24 00:14) Unknown hydrochlorothiazide Allergy (Unknown, Verified 01/10/24 00:14) Unknown indomethacin [From Indocin] Allergy (Unknown, Verified 01/10/24 00:14) Unknown lisinopril Allergy (Unknown, Verified 01/10/24 00:14) Unknown oxybutynin Allergy (Unknown, Verified 01/10/24 00:14) Unknown tolmetin Allergy (Unknown, Verified 01/10/24 00:14) Unknown triamterene Allergy (Unknown, Verified 01/10/24 00:14) Unknown banana Allergy (Verified 01/10/24 00:14) Unknown Resuscitation Status Full Code Height 5 ft 6 in Weight 105.3 kg Pharmacy Admission Review Renal Dosing Renal Dosing: BUN 20 mg/dL (7-18) H 01/11/24 06:15 Creatinine 2.1 mg/dL (0.55-1.02) H 01/11/24 06:15 Medications needing adjustments: Intervened (CrCl 24.82 mL/min, SCr increased from 1.8) List of meds needing interventions: Changed famotidine dose to 10mg q48h Anticoagulation Anticoagulation: Hgb 8.8 g/dL (11.2-15.7) L 01/11/24 06:15 Hct 27.0 % (36.0-46.0) L 01/11/24 06:15 Plt Count 229 10^3/uL (130-400) 01/11/24 06:15 Creatinine 2.1 mg/dL (0.55-1.02) H 01/11/24 06:15 DVT Prophylaxis: Reviewed (SCDs - prophylaxis on hold until Hgb stable per H+P) Relevant Labs Relevant Labs: Sodium 136 mmol/L (136-145) 01/11/24 06:15 Potassium 3.8 mmol/L (3.5-5.1) 01/11/24 06:15 Chloride 97 mmol/L (98-107) L 01/11/24 06:15 Magnesium 2.0 mg/dL (1.8-2.4) 01/11/24 06:15 Magnesium Cancelled 01/11/24 06:15 Electrolytes, C-Reactive P, ESR: Reviewed (Hgb decreased from 9.1 to 8.8, glucose 108) Cardiac Review Cardiac Review: Troponin I < 50 ng/L (< or =60) 01/10/24 05:50 NT-Pro-B Natriuret Pep 9113 pg/mL (<300) H 01/09/24 21:15 BP, HR, EF%: Reviewed (BP WNL, HR 95) QTc Review QTc: Reviewed (465 from 01/09/24) IV to PO Switch IV Medications: Reviewed (Furosemide and prochlorperazine) Home Meds Home Med List reviewed: Intervened Relevent Home Meds Not ordered & why?: Albuterol (on hold due to tachycardia per H+P), acetaminophen (PRN), vitamin D3, fesoterodine and Myrbetriq Amlodipine listed on home med list as 5mg daily but most recent fill was for 10mg daily, filled on 12/01/23 for 90 day supply Reached out to provider regarding fesoterodine, Myrbetriq and amlodipine dose Current Meds Current Medication Order Review: Intervened Comments: Metoprolol order was put in as 100mg daily. H+P stated to continue metoprolol BID and per home med list patient takes 100mg AM and 200mg PM. Added PM dosing of 200mg.
--- NOTE | 2024-01-11 12:24 | CMPROGNOTE_ITS ---
Date of service: 01/11/24 Time of Service: 12:24 Care Management Progress Note Progress Note Text Progress Note Text: S/O: Paige was awake and laying in bed when CM met with her. She is polite and easily engages in conversation. Paige states that she lives in [place] with her Nice Kimberly and only in [facility] for STR at [facility]. She is planning on discharging home following her rehab stay. She would ultimately like to find STR closer to [place]. Paige shared with CM that Kimberly doesn't know she's in the hospital and is probably worried about her. The last time she didn't know where she was she sent the Police looking for her. Kimberly didn't know that Paige was admitted to [facility] and is frustrated that she's not receiving communication. Plan is to have Paige update her HIPAA, add Kimberly's contact info to the White Board in the room, let nursing know and have Kimberly and Paige create a patient portal account. Kimberly, is aware that Paige is her own person and is able to make her own decisions, has a phone in her room and is able to update her, if needed. A: 83 year old female admitted to [facility] on 01/10/24 with acute on chronic HF wPEF Discharge Potential Discharge Needs: PT Evaluation Plan: Anticipate Paige will return to [facility] once medically cleared. She will likely transport via EMS due to limited mobility and need for noemí lift transfers. She will follow up with facility providers and her discharge plan of care. CM will continue to follow. SDOH(Care Management) Screening Will the Patient Participate in the Screening?: Declined to provide
[2024-01-11] MEDS: IRON SUCROSE COMPLEX 200 MG in Normal Saline 100 ML 400 MG IVPB (13:21)
[2024-01-11] MEDS: Heparin 5,000 UNITS/ML VIAL 5000 UNITS SC (14:21)
--- NOTE | 2024-01-11 16:37 | IN_ITS ---
PT Notes Visit Reasons: Acute on Chronic HFwPEF Physical Therapy Inpatient Initial Evaluation Date: 01/11/2024 Referring Doctor: Soledad Beasley MD PT Orders: PT CONSULT: Eval for Assistive Device Precautions: Fall. Standard. Activity as tolerated. Patient Profile/Admitting Diagnosis: Paige is an 83 yo female returned to the ED from [facility] on 01/09/2024 due to intermittent chest pain. Patient was recently admitted to this hospital due to GI bleed. Patient is admitted this time for management of HFpEF, chronic AF, HTN, hyperlipidemia, depression, COPD, and TAWANA. PMHX: All Active Problems (Updated 01/10/24 @ 00:23 by Calixto Nichols MD) TAWANA (obstructive sleep apnea) (Chronic) Hyperlipidemia (Acute) Hypertension (Chronic) CRF (chronic renal failure) (Acute) Respiratory failure (Acute) Pleural effusion (Acute) CHF (congestive heart failure) (Chronic) Acute dyspnea (Acute) Bleeding hemorrhoids (Acute) Left arm pain (Acute) Hypokalemia (Acute) Edema of left upper extremity (Chronic) Depression (Chronic) COPD (chronic obstructive pulmonary disease) (Chronic) Colitis (Acute) Lower GI bleed (Acute) Acute blood loss anemia (Acute) Diverticulosis (Chronic) Chronic atrial fibrillation (Chronic) Acute GI bleeding (Acute) Anticoagulant long-term use (Acute) Anemia (Chronic) (HFpEF) heart failure with preserved ejection fraction (Acute) Social History/Home Situation: Currently at [facility] getting rehab services. Reports using noemí l ift. Unclear what her baseline function is, but indicates was living in apartment alone and using wheelchair or 4WW. Had elevator. Equipment Owned/DME: Wheelchair, 4WW Subjective: Agreeable to trying out bed exercises for today. Okay with training with STEDY tomorrow. No report of dizziness throughout session. Was short of breath during after forward pullls on B bedside rails from sitting with HOB at 62 degrees. Objective: General Observation: Resting in bed. SCDs in place. Mental Status: A&O x3 Pain: None ROM: Right Upper Extremity: Shoulder Flexion lacks the last 50% of AROM. Shoulder abduction lacks the last 50% of AROM. Elbow flexion WFL. Wrist flexion WFL. Functional opening and closing of hand WFL. Left Upper Extremity: Shoulder Flexion lacks the last 75% of AROM. Shoulder abduction lacks the last 50% of AROM. Elbow flexion WFL. Wrist flexion WFL. Functional opening and closing of hand WFL. Right Lower Extremity: Hip flexion less than 50% of AROM. Hip abduction WFL. Knee flexion less than 25% of AROM. Ankle dorsiflexion to neutral only. Ankle plantarflexion WFL. Left Lower Extremity: Hip flexion less than 50% of AROM. Hip abduction WFL. Knee flexion less than 25% of AROM. Ankle dorsiflexion to neutral only. Ankle plantarflexion WFL. Strength: Right Upper Extremity: Shoulder flexors 3-/5. Shoulder abductors 3-/5. Elbow flexors 4-/5. Elbow extensors 4-/5. Utilities Equipment Repairer strong. Left Upper Extremity: Shoulder flexors 2-/5. Shoulder abductors 2-/5. Elbow flexors 3-/5. Elbow extensors 3-/5. Utilities Equipment Repairer strong. Right Lower Extremity: Hip flexors 2-/5. Hip abductors 2-/5. Knee flexors 2-/5. Knee extensors 2-/5. Ankle dorsiflexors 3-/5. Ankle plantarflexors 4-/5. Left Lower Extremity: Hip flexors 2-/5. Hip abductors 2-/5. Knee flexors 2-/5. Knee extensors 2-/5. Ankle dorsiflexors 3-/5. Ankle plantarflexors 4-/5. Sensation: Intact as to pain and pressure on bilateral lower extremities. Bed Mobility/Transfers: Rolling: minimal assist of 2 Supine to sit: moderate assist of 2 Sit to supine: moderate assist of 2 Sit to stand: unable Gait: Unable Balance: Static Sitting: Fair Dynamic Sitting: Poor Static Standing: Unable to assess Dynamic Standing: Unable to assess Special Tests: Mobility Limitations Standardized Measure [facility] AM-PAC 6 clicks Basic Mobility Inpatient Short Form: Raw Score: 9 CMS Score: 82% deficit Informed Consent/Education: Patient instructed in purpose of PT consult and plan of care. Assessment: Had been mechanically lifted at [facility] due to ongoing weakness for the past month or two. Will require slow progression of bed mobility and transfers as patient tends to get highly anxious about sitting up. Patient presents with clinical signs and symptoms consistent with current/admitting diagnoses that have resulted to mobility limitations, gait instability, generalized weakness, and impairment of motor control as demonstrated by the following impairment level findings: 1. Decreased strength to all major muscle groups 2. Impaired sitting/standing balance 3. Impaired activity tolerance 4. Limitation of joint range of motion in major joints Impairments are contributing to the following functional limitations: 1. Dependent bed mobility skills 2. Increased dependence with transfers 3. Inability to safely ambulate without assistive device and physical assistance 4. Increase completion time for mobility ADL performance 5. Increased fall risk Patient is assessed as a 21675 high complexity based on the following: History: 83 year old female with impairment level findings, functional limitations, and past medical history as indicated above Examination: Demonstrable impairment in strength, balance, and mobility level with underlying impairments and functional limitations as documented above Presentation: Evolving Decision Makin high complrexity Goals: Goals x1 week 1. Supine-Sit: minimal assist 2. Sit-Supine: minimal assist 3. Sit-Stand: minimal assist 4. Stand-Sit: minimal assist 5. Bed-Chair: minimal assist 6. Chair-Bed: minimal assist Plan of Care/Treatment Plan: 1-2x/day, 7 days/week x1 week. Plan of care has been reviewed with the CUFF SETTER LOCKSTITCH providing the service under Physical Therapy direction. Initiate Physical Therapy intervention for strengthening, bed mobility, transfers, gait, stairs, balance training, and use of assistive device. Discharge Plan Patient will benefit from group home facility placement for continued skill ed physical therapy services in order to progress mobility level, strength, and balance in preparation for a safe discharge to home. TREATMENT CODE/TIME: 9716 3 x 31 minutes for 1 unit (15:44?16: 15). Thank you for the opportunity to participate in the care of this patient. Malinda Arguello PT, DPT, CLT [facility] [place], [place]
[2024-01-11] MEDS: Atorvastatin 20 MG TAB PO (20:56)
[2024-01-11] MEDS: Metoprolol CR 100 MG TABCR 200 MG PO (20:56)
[2024-01-12] MEDS: Acetaminophen 325 MG TAB 650 MG PO ×3 (02:51→22:39)
[2024-01-12] MEDS: Heparin 5,000 UNITS/ML VIAL 5000 UNITS SC (02:57)
[2024-01-12 03:05] VITALS: BP 130/77; PULSE 65; RESP 16; TEMP 36.1; O2SAT 96
[2024-01-12 06:40] LABS: Abs Immature Grans 0.02 10^3/uL (0.0-0.06); Absolute Basophil Count 0.08 10^3/uL (0.0-0.2); Absolute Eosinophil Count 0.41 10^3/uL (0.0-0.7); Absolute Lymphocyte Count 1.56 10^3/uL (1.2-3.4); Absolute Monocyte Count 1.06 10^3/uL (0.1-0.8); Absolute Neutrophil Count 3.84 10^3/uL (1.2-6.7); Basophils % 1.1 %; Eosinophils % 5.9 %; HCT 27.3 % (36.0-46.0); HGB 8.8 g/dL (11.2-15.7); Immature Grans % 0.3 %; Lymphocytes % 22.4 %; MCH 28.4 pg (27.0-33.0); MCHC 32.2 % (32.0-36.0); MCV 88 fL (80-95); Monocytes % 15.2 %; Neutrophils % 55.1 %; Platelet Count 249 10^3/uL (130-400); RDW 15.9 % (11.7-14.6); RDW-SD 51.8 fL; WBC 6.97 10^3/uL (4.4-10.8)
[2024-01-12 06:48] LABS: Anion Gap 5.6 mmol/L (3-11); BUN 30 mg/dL (7-18); CO2 32.4 mmol/L (21.0-32.0); CREATININE 2.2 mg/dL (0.55-1.02); Calcium 8.5 mg/dL (8.5-10.1); Chloride 98 mmol/L (98-107); Glucose 110 mg/dL (74-106); Potassium 3.9 mmol/L (3.5-5.1); Sodium 136 mmol/L (136-145)
[2024-01-12 07:31] VITALS: BP 131/87; PULSE 77; RESP 19; TEMP 36.7; O2SAT 99
[2024-01-12] MEDS: FLUoxetine 20 MG CAP PO (07:59)
[2024-01-12] MEDS: Mirabegron 25 MG TABCR PO (07:59)
[2024-01-12] MEDS: Metoprolol CR 100 MG TABCR PO (08:00)
[2024-01-12] MEDS: Docusate Sodium 100 MG CAP PO ×2 (08:00→20:10)
[2024-01-12] MEDS: amLODIPine 5 MG TAB PO (08:00)
[2024-01-12] MEDS: Aspirin E.C. 81 MG TABEC PO ×2 (08:00→20:10)
[2024-01-12] MEDS: Ferrous Sulfate 325 MG TAB PO (08:00)
[2024-01-12] MEDS: Famotidine 20 MG TAB 10 MG PO (08:00)
[2024-01-12] MEDS: Spironolactone 25 MG TAB PO (08:00)
[2024-01-12] MEDS: Tiotropium Bromide-Respimat 10 PUFF INH 2 PUFF IH (08:14)
[2024-01-12 08:16] VITALS: O2SAT 100
[2024-01-12 08:17] VITALS: O2SAT 100
[2024-01-12] MEDS: Normal Saline Flush 10 ML SYR IVP ×3 (09:38→20:10)
[2024-01-12] MEDS: Furosemide 40 MG/4 ML VIAL IVP (09:38)
--- NOTE | 2024-01-12 09:41 | PDOC.CMPRO ---
Date of service: 01/12/24 Time of Service: 09:41 Care Management Progress Note Progress Note Text Progress Note Text: S/O: Paige is awake and lying in bed when CM met with her. She is pleasant and easily engaged in conversation for a few minutes before feeling sob. Per pt, she gets winded when she talks alot, other than that she is feeling better than yesterday. Paige may be medically ready for discharge on , no change to overall discharge plan. A: 83 year old female admitted to [facility] on 01/10/24 with acute on chronic HF wPEF Discharge Potential Discharge Needs: Imaging/labs and PT Evaluation Anticipated Barriers to Discharge: None Identified Patient/Family Education Needs: Review discharge instructions, discuss Ask Me Three Transportation: Facility Transport (W/C van) Plan: Anticipate Paige will return to [facility] once medically cleared. She will likely transport via EMS due to limited mobility and need for noemí lift transfers. She will follow up with facility providers and her discharge plan of care. CM will continue to follow. SDOH(Care Management) Screening Will the Patient Participate in the Screening?: Declined to provide
[2024-01-12 11:16] VITALS: BP 108/77; PULSE 78; RESP 20; TEMP 36.7; O2SAT 96
--- NOTE | 2024-01-12 13:53 | PCNE_ITS ---
Date of service: 01/12/24 Time of Service: 13:53 History of Present Illness Narrative: Paige Campuzano is an 83year-old woman from [facility] with multiple medical problems who was admitted to [facility] 3 days ago with chest pain and shortness of breath thought to perhaps be from exacerbation of her diastolic heart failure. Of note, she was just discharged from [facility] 2 days earlier after being admitted for GI bleed secondary to Eliquis. I met today with patient at the bedside along with her niece/HCA Kimberly and her nephew Rajesh Pandey and [id number] (this trio live in [place] and support her). Additional information from [facility] chart as well as [facility]. Her medical history includes history of several episodes of GI bleeding, depression (on SSRI) chronic diastolic congestive heart failure, chronic anemia, chronic atrial fibrillation (no DOAC due to history of GI bleeding), CKD 3/4, type 2 diabetes, hypertension, hyperlipidemia, depression, COPD , TAWANA (on CPAP), hypoxia: needing oxygen over the last year 02/03, higher rate when up and about.) Ms. Max lives alone in [facility]. She was admitted to [facility] rehab on December 27 from [facility] after admission there for chronic cholecystitis requiring placement of Cholecystostomy tube. She may have also had GI bleeding during that stay. After 5 days she was sent to [facility] ER because of rectal bleeding. Admitted at that time for 4 days, receiving 1 unit PRBC. Surgery felt that her bleeding was from hemorrhoids and exacerbated by DOAC, they recommended against colonoscopy at that time. She was switched from DOAC to aspirin 81 mg for anticoagulation for atrial fibrillation. -Past [facility] note states no upper or lower GI scoping done at any of these recent admissions, as she was deemed high risk. -Although she is still anemic, hemoglobin higher than upon discharge. Iron was low last week when she was here. She is going to receive iron infusion. Additional data gleaned from [facility]: -Multiple hospital admissions since . -Creatinine 1.13 May 2023. However creatinine range 1.4?2.6 since September 2023. -As per pt and Kimberly: Multiple admission since 2022. Spent 3 months in [facility] in [place] from April to August. Was able to go home for a month. End of September she was back in hospital less than a week, then was able to return home (moving herself in ). Then back in hospital, spent most of October and early November in REhab in [place]. Able to return home. Readmitted to [facility] [place] [place] with Septic shock from UTI end December for 3 weeks (required intubation for 36 hours). Only rehab bed December 25 was here in [facility]. Bleeding has been going on since before November admission. Rehab noted some blood on perineum since Rehab stay in July (thought to be vaginal at that time). H/H has been dropping since the fall. Getting some iron since November. First blood transfusion as outpt at [facility] [place] [place] before end November hospital admission. Tc has had a large hemorroid. Function: Has been able to transfer to with assist since recent admissions and SNF stays, but not ambulating via walking since last year. Kimberly feels she is looking better than she did in early December. SHe is looking stronger and better color and able to talk. Care Team: Primary Care physician: Has PCP in [facility]. Currently PCP is [facility] medical staff. Social HX: Has been living in senior apartment with her cat Chelsea (Kimberly is feeding cat). Moved to [place] from [place] 2010 to be closer to family, needed their support (her sister, Kimberly's Mom/now , had moved to [place] with family, ).. 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 Children: None. Supported by niece Kimberlysarah Pandey, who lives in [place]. Also support from nephew Rajesh Pandey and [id number] who also lives in [facility]. Hobbies: Reading, playing games on IPOD, watching TV. Used to play [employer] Additional Services: [facility] with , Lo was her natural science manager when she was now. APARTMENT IS BEING HELD. ALSO Support from [place] [facility] [employer] (Case worked Arpita at [facility]). Impression of currents health status: Not doing so well. What bothers you the most: Finds herself just watching the TV and not doing anything else, too tired. What worries you the most: What is going to happen to Chelsea if she can no longer care for her. Goals: -To move to a rehab closer to her family and home in [place] and ideally to return home. -Several books that she would like to read on her IPAD Function: Ambulation: Over the last year when living in her apartment, she transferred herself into a wheelchair and then moved around in a wheelchair. Since end of November hospital admission she is no longer able to self propel in and needs help with transferring. ADLs: Can feed herself. Needs assistance with all other ADLs iADLs: Dependent for all, I did not query financial. Patient appears to be have full capacity Hearing: Pretty good Vision: pretty good with glasses. Cognition: Kimberly reports that there are no memory issues and no delirium, even when septic and was able to communicate when intubated. Falls: None in the last year. Driving: NA Palliative Performance Scale % Ambulation Activity and Evidence of Disease Self Care Intake Level of Consciousness 100 Full Normal activity, no evidence of disease Full Normal Full 90 Full Normal activity, some evidence of disease Full Normal Full 80 Full Normal activity with effort, some evidence of disease Full Normal or reduced Full 70 Reduced Unable to do normal work, some evidence of disease Full Normal or reduced Full 60 Reduced Unable to do hobby or some housework, significant disease Occasional assist necessary Normal or reduced Full or confusion 50 Mainly sit/lie Unable to do any work, extensive disease Considerable assistance required Normal or reduced Full or confusion 40 Mainly in bed Unable to do any work, extensive disease Mainly assistance Normal or reduced Full, drowsy, or confusion 30 Totally bed bound Unable to do any work, extensive disease Total care Reduced Full, drowsy, or confusion 20 Totally bed bound Unable to do any work, extensive disease Total care Minimal sips Full, drowsy, or confusion 10 Totally bed bound Unable to do any work, extensive disease Total care Mouth care only Drowsy or coma 0 - - - - Patient Score: 40 Spiritual history: Used to go to [employer] (nephew's was Congregational baker head, now passed)., but not since she moved to [place]. Prayer can help, comfort from cross. Appreciates oracle soa consultant visit at [facility] Palliative review of systems: Pain: OA; Left shoulder, Left bad knee. Tylenol for pain. Dyspnea: See HPI GI symptoms: Not queried Appetite: Improving Depression: Discouraged at times due to medical setbacks Anxiety: None Emotional Distress: Spiritual/Existential Distress: Labs: Cr: 2.2 (range 1.9?2.1 since moving to [facility]). Creatinine about 10 May 2023 Liver panel: Normal Albumin: 2.5 CBC: Hemoglobin 8.8 Advanced Care Planning: Advanced Directive: AD from January 2018 on file. Health Care Agent: As per 2018 advanced directive: Healthcare agent is misha Pandey [phone], alternate is Rajesh Pandey (nephew, [facility]) COLST: No COLST. Remains full code Limitations: Assessment and Plan Assessment and plan (1) CHF (congestive heart failure): Status: Chronic Assessment and plan: 83-year-old woman with multiple medical problems Previously living in handicapped accessible apartment in [place] with family and COA support, who has had multiple admissions and [facility] stays over the last 9 months. During this time she has become oxygen dependent and has developed CKD 3/4 and has become dependent on others for many ADLs and IADLs. She remains cognitively intact. She enjoys strong support from her niece, nephew and [id number] who live in [place]. Reviewed with patient and her family [facility] of her medical and functional course over the last 9 months. Although she has had multiple hospitalizations and [facility] stays, remarkably, she has been able to return home for 1 to 2 months days in between. Unfortunately, progression of her kidney disease and hypoxia due to cardiac and pulmonary issues resulting in fatigue and increasing dependence for transfers and other ADLs is going to make returning home less likely. They are aware of this. #Goals: Ms. Campuzano hopes that she Will be able to resume living in her apartment in [place]. However she says she is realistic and realizes she may need to live long-term in SNF. She is willing to accept this, but feels she needs to be in the facility in [facility] in order for her family to be able to support her. She feels she could find value in life at SNF, continuing to read her books, play games on her iPad, watch TV and enjoys time with her family. Her only regret if she had to live long-term in SNF would be that she would have to give up her cat Maggie. Patient's primary goal and hope is that she is going to be able to transfer to longterm facility closer to home in [facility]. #Advance care planning: Ms. Campuzano has a 2018 advanced directive, which is on file. This clearly states that if she was unconscious or if there is no chance of recovery or no longer able to communicate with friends and family long-term, she would no longer want life-sustaining treatment. However, up until that point, she wants to receive all available life-sustaining treatment including CPR and intubation. Nimichaela Harris gives example that in the fall, when she was desperately ill and unconscious with sepsis from cholecystitis, requiring transfer to [facility] ICU, Kimberly and Rajesh felt that DNR/DNI status would be most appropriate given how sick she was. When she had recovered, patient says she was quite annoyed at them and insisted that she be made full code. More recently about a month ago, she required intubation for 36 hours. Apparently she was able to communicate with family during this time and did not find intubation onerous or scary and would be happy to go through it again If there was any chance of recovery. (See above for discussion of what patient feels is acceptable quality of life) We discussed the procedure of CPaR, actual mechanical process, rate of success in restoring heartbeat, short and long-term side effects in survivors (including likely decreased physical and cognitive functioning). Patient is consistent with her desire to have CPR should her heart stop and intubation if indicated. She points out that her advanced directive allows Kimberly and Rajesh to pivot her to comfort measures only should there be no chance of recovery. She remains full code. Future discussions might involve discussing dialysis should kidney function further decline but was not discussed today. If patient remains at [facility], I plan to follow-up with her and her family in about a month. (2) Lower GI bleed: Status: Acute (3) Chronic atrial fibrillation: Status: Chronic (4) (HFpEF) heart failure with preserved ejection fraction: Status: Acute Qualifiers: Heart failure chronicity: chronic Qualified Code(s): I50.32 - Chronic diastolic (congestive) heart failure (5) Anemia: Status: Chronic (6) Depression: Status: Chronic Qualifiers: Depression Type: other depression Qualified Code(s): F32.89 - Other specified depressive episodes (7) COPD (chronic obstructive pulmonary disease): Status: Chronic Qualifiers: COPD type: unspecified COPD Qualified Code(s): J44.9 - Chronic obstructive pulmonary disease, unspecified (8) TAWANA (obstructive sleep apnea): Status: Chronic (9) Advanced care planning/counseling discussion: Status: Acute (10) Palliative care patient: Status: Acute Assessment and plan: 16 to 30 minutes spent today on Advance Care Planning. Patient and family participated voluntarily. Advance care planning may include (not limited to) explanation and discussion of advance directives, choosing and appointing healthcare agents, alternatives to various ACP tools, discussion of (and if indicated, completion of) COLST form, discussion of patient's values and overall goals for treatment, palliative and disease directive care options, ways to avoid hospital readmission including hospice discussions, care preferences should the patient's several other adverse health events.See today's palliative care note for additional information. This note was dictated using speech recognition software. Attempt was made at proofreading, but errors may be present. Please call with questions. PFSH All Active Problems (Updated 01/12/24 @ 14:10 by Sylvia Majano MD) Palliative care patient (Acute) Advanced care planning/counseling discussion (Acute) Discharge planning issues (Acute) TAWANA (obstructive sleep apnea) (Chronic) Hyperlipidemia (Acute) Hypertension (Chronic) CRF (chronic renal failure) (Acute) Respiratory failure (Acute) Pleural effusion (Acute) CHF (congestive heart failure) (Chronic) Acute dyspnea (Acute) Bleeding hemorrhoids (Acute) Left arm pain (Acute) Hypokalemia (Acute) Edema of left upper extremity (Chronic) Depression (Chronic) COPD (chronic obstructive pulmonary disease) (Chronic) Colitis (Acute) Lower GI bleed (Acute) Acute blood loss anemia (Acute) Diverticulosis (Chronic) Chronic atrial fibrillation (Chronic) Acute GI bleeding (Acute) Anticoagulant long-term use (Acute) Anemia (Chronic) (HFpEF) heart failure with preserved ejection fraction (Acute) Social History Smoking/Tobacco Use Status: Former Tobacco Use Smoking risk assessment performed?: Yes [facility] Exam Narrative Exam Narrative: Pleasant and talkative elderly female with oxygen on via nasal cannula. No obvious dyspnea. Color is pretty good. Alert and oriented to month, year, president, location. Pleasant and upbeat affect today. Results Last Vital Signs Temp 36.7 C 01/12/24 11:16 Pulse 78 01/12/24 11:16 Resp 20 01/12/24 11:16 BP 108/77 01/12/24 11:16 Pulse Ox 96 01/12/24 11:16 Labs 01/13/24 06:34 01/12/24 06:30 Labs: Laboratory Results - last 24 hr 01/12/24 06:30 WBC 6.97 RBC 3.10 L Hgb 8.8 L Hct 27.3 L MCV 88 MCH 28.4 MCHC 32.2 RDW 15.9 H Plt Count 249 MPV 10.0 Immature Gran % 0.3 Neutrophils % 55.1 Lymphocytes % 22.4 Monocytes % 15.2 Eosinophils % 5.9 Basophils % 1.1 Nucleated RBC % 0.0 Absolute Neutrophils 3.84 Absolute Lymphocytes 1.56 Absolute Monocytes 1.06 H Absolute Eosinophils 0.41 Absolute Basophils 0.08 Sodium 136 Potassium 3.9 Chloride 98 Carbon Dioxide 32.4 H Anion Gap 5.6 BUN 30 H Creatinine 2.2 H Est GFR (CKD-EPI 2020) 21.70 Glucose 110 H Calcium 8.5 Magnesium 2.0
--- NOTE | 2024-01-12 15:18 | PGE_ITS ---
Date of Service Date of service: 01/12/24 Time of Service: 12:00 Assessment and Plan Assessment and plan (1) (HFpEF) heart failure with preserved ejection fraction: Status: Acute Assessment and plan: Lasix 40mg IV tid transitioned to oral lasix 80 mg BID Continue -daily weights, -I/O: christensen catheter for strict I&O around 2000 ml/24 hours -Diet: Heart healthy: low Na diet and fluid restriction -US Echo completed LEVF 60% RVSP 52 mmHg with normal RV size and function Sclerotic aortic valve with trace regurgitation -Monitor H/H for recent GIB -Pharmacological DVT prophylaxois on hold d/t Cr up from 20 to 30, Stool for occult blood pending,hemoglobin is stable -Fe was 22 on 01/04 will give one dose of iron sucrose IV on 01/11/2024 -Low suspicion for PE as SOB and sat were responsive to O2 supplementation but the ED obtained a D-dimer which was elevated, not considering VQ scan at this time as patient's clinical picture is improving, sat on RA at rest today 93% -IS ordered: diminished lung bases but improved continue CPAP at night and IS Surrogate Decision Maker -Kimberly Pandey ([facility]) -[phone] Qualifiers: Heart failure chronicity: chronic Qualified Code(s): I50.32 - Chronic diastolic (congestive) heart failure (2) Chronic atrial fibrillation: Status: Chronic Assessment and plan: -On ASA 81mg daily for anticoagulation as per [employer] -She is not on Eliquis anymore due to history of GIB as per surgical consult from previous stay -On Metoprolol Succinate fo rate control w/ (3) Hypertension: Status: Chronic Assessment and plan: -Cont w/ Metoprolol Succinate ER -Continue Norvasc 5mg daily could be increase to 10 mg daily if needed as per consult with Jennifer Buchanan pharmacist, the patient had filled a script for Norvasc 10 mg daily on 12/02/2023. At this time with the increased dose of diuretics will hold off higher dosing. Qualifiers: Hypertension type: primary hypertension Qualified Code(s): I10 - Essential (primary) hypertension (4) Hyperlipidemia: Status: Acute Assessment and plan: -Continue atorvastatin 20mg orally daily Qualifiers: Hyperlipidemia type: unspecified Qualified Code(s): E78.5 - Hyperlipidemia, unspecified (5) Depression: Status: Chronic Assessment and plan: -On Fluoxetine 20mg orally daily Qualifiers: Depression Type: other depression Qualified Code(s): F32.89 - Other specified depressive episodes (6) COPD (chronic obstructive pulmonary disease): Status: Chronic Assessment and plan: -Continue PRN Xopenex -Continue w/ Spiriva Respimat Qualifiers: COPD type: unspecified COPD Qualified Code(s): J44.9 - Chronic obstructive pulmonary disease, unspecified (7) TAWANA (obstructive sleep apnea): Status: Chronic Assessment and plan: -Continue home Oxygen 2L NC qhs -Evaluate if increased supplementation needed but at this time not displaying increased WOB; RA sat 93% at rest. -Continue CPAP qhs with O2 bleed (8) Discharge planning issues: Status: Acute Assessment and plan: Return to [facility] when medically cleared CM to f/u PT consult in progress Discussed with Dr. Hennessy Subjective Subjective Patient reports: feels better, tolerating liquids well, tolerating a regular diet, flatus and afebrile; denies nausea, vomiting or shortness of breath Exam Narrative Exam Narrative: Constitutional The patient is in bed comfortable, short of breath on exertion HENMT: Head is atraumatic. Facial structures with normal appearance Neuro:alert and oriented X 3 Resp: Clear lung bilaterally, diminished bases L> R improving Cardio: A-Fib on tele HR 78, S1, S2, radial and pedal pulses are positive GI: Abdomen is large not distended, soft and non tender, bowel sounds are present Integumentary: No skin lesions or rash on exposed skin, old PICC site to right chest at , intact Psych: RASS 0, congruent mood and flat affect at times. Objective Last Vital Signs Temp 36.7 C 01/12/24 11:16 Pulse 78 01/12/24 11:16 Resp 20 01/12/24 11:16 BP 108/77 01/12/24 11:16 Pulse Ox 96 01/12/24 11:16 Laboratory Results - last 24 hr 01/12/24 06:30 WBC 6.97 RBC 3.10 L Hgb 8.8 L Hct 27.3 L MCV 88 MCH 28.4 MCHC 32.2 RDW 15.9 H Plt Count 249 MPV 10.0 Immature Gran % 0.3 Neutrophils % 55.1 Lymphocytes % 22.4 Monocytes % 15.2 Eosinophils % 5.9 Basophils % 1.1 Nucleated RBC % 0.0 Absolute Neutrophils 3.84 Absolute Lymphocytes 1.56 Absolute Monocytes 1.06 H Absolute Eosinophils 0.41 Absolute Basophils 0.08 Sodium 136 Potassium 3.9 Chloride 98 Carbon Dioxide 32.4 H Anion Gap 5.6 BUN 30 H Creatinine 2.2 H Est GFR (CKD-EPI 2020) 21.70 Glucose 110 H Calcium 8.5 Magnesium 2.0 Time Spent with Patient Time Spent with Patient: >50 minutes Time was spent: preparing to see the patient(eg.review tests), obtaining and/or reviewing separately otained hiistory, ordering medications,tests, procedures, referring, communicating with other health body care manager, indepentently interpreting results, counseling the patient and care coordination
[2024-01-12] MEDS: Furosemide 80 MG TAB PO (16:05)
--- NOTE | 2024-01-12 16:18 | PTTR_ITS ---
PT Notes Visit Reasons: Acute on Chronic HFwPEF Physical Therapy Inpatient Treatment Note Date: 01/12/2024 Precautions: Fall. Standard. Activity as tolerated. Subjective: In good spirits, Richard Harris and 2 other male relatives present in room. Complained again of being dizzy but willing to do more with encouragement of family. Objective: General Observation: Resting in bed. SCDs in place. Mental Status: A&O x3 Pain: None Bed Mobility/Transfers: Supine to sit: moderate assist of 2 Sit to supine: moderate assist of 2 Sit to stand: STEDY lift with assist of 2 and stand by assist of a third person for safety Stand to sit: STEDY lift with assist of 2 and stand by assist of a third person for safety Bed to bedside recliner: STEDY lift with assist of 2 and stand by assist of a third person for safety Gait: Unable Balance: Static Sitting: Fair Dynamic Sitting: Poor Static Standing: Unable Dynamic Standing: Unable Assessment: First day for patient to agree with mobilization out of bed using the STEDY lift. Will continue to assess benefit of slowly progressing standing balance and tolerance using STEDY lift for all sit<>stand and tranfer tasks. Plan of Care/Treatment Plan: 1-2x/day, 7 days/week x1 week. Plan of care has been reviewed with the CHILDCARE ATTENDANT providing the service under Physical Therapy direction. Initiate Physical Therapy intervention for strengthening, bed mobility, transfers, gait, stairs, balance training, and use of assistive device. Discharge Plan Patient will benefit from long term facility placement for continued skilled physical therapy services in order to progress mobility level, strength, and balance in preparation for a safe discharge to home. TREATMENT CODE/TIME: 68781 x 17 minutes for 1 unit (16:18?16:35).
--- NOTE | 2024-01-12 16:43 | CHAPLAIN ---
Paige was in bed when I visited. She is [employer] and asked for a small cross which I was able to provide for her, and a prayer shawl. Paige said her niece, who is her HCA and helps her in many ways, is arriving this afternoon. Paige is from [place] and was transferred to [facility] from [facility] because there were no beds closer. Paige said her niece hopes to get her closer to home. Paige seemed to very much be looking forward to her niece's visit. Paige's family experienced the recent of her nephew's , in her 50's, who of cancer in August after being told her cancer was clear, following a mastectomy, but then mets were found in her brain. The family is coping with the loss that's so new. I will continue to visit.
[2024-01-12] MEDS: Prochlorperazine 10 MG/2 ML VIAL 5 MG IVP (17:48)
[2024-01-12 19:45] VITALS: BP 124/77; PULSE 89; RESP 16; TEMP 36.5; O2SAT 98
[2024-01-12] MEDS: Atorvastatin 20 MG TAB PO (20:10)
[2024-01-12] MEDS: Fluticasone NASAL SPRAY 16 GM BTL NS (20:10)
[2024-01-12] MEDS: Metoprolol CR 100 MG TABCR 200 MG PO (20:10)
[2024-01-13 07:19] LABS: Abs Immature Grans 0.02 10^3/uL (0.0-0.06); Absolute Basophil Count 0.08 10^3/uL (0.0-0.2); Absolute Eosinophil Count 0.36 10^3/uL (0.0-0.7); Absolute Lymphocyte Count 1.56 10^3/uL (1.2-3.4); Absolute Monocyte Count 0.91 10^3/uL (0.1-0.8); Absolute Neutrophil Count 3.33 10^3/uL (1.2-6.7); Basophils % 1.3 %; Eosinophils % 5.8 %; HCT 29.4 % (36.0-46.0); HGB 9.6 g/dL (11.2-15.7); Immature Grans % 0.3 %; Lymphocytes % 24.9 %; MCH 28.7 pg (27.0-33.0); MCHC 32.7 % (32.0-36.0); MCV 88 fL (80-95); MPV 10.3 fL (8.0-11.0); Monocytes % 14.5 %; Neutrophils % 53.2 %; Platelet Count 270 10^3/uL (130-400); RBC 3.34 10^6/uL (3.93-5.22); RDW 15.8 % (11.7-14.6); RDW-SD 51.3 fL; WBC 6.26 10^3/uL (4.4-10.8)
[2024-01-13 07:26] VITALS: BP 140/78; PULSE 71; RESP 16; TEMP 36.4; O2SAT 99
[2024-01-13 07:35] LABS: Anion Gap 6.5 mmol/L (3-11); BUN 37 mg/dL (7-18); CO2 31.5 mmol/L (21.0-32.0); CREATININE 2.6 mg/dL (0.55-1.02); Calcium 8.7 mg/dL (8.5-10.1); Chloride 97 mmol/L (98-107); Estimated GFR 17.76 (mL/min/1.73m2); Glucose 111 mg/dL (74-106); Potassium 3.5 mmol/L (3.5-5.1); Sodium 135 mmol/L (136-145)
[2024-01-13] MEDS: Tiotropium Bromide-Respimat 10 PUFF INH 2 PUFF IH (08:20)
--- NOTE | 2024-01-13 08:56 | PGE_ITS ---
Date of Service Date of service: 01/13/24 Time of Service: 08:56 Assessment and Plan Assessment and plan (1) (HFpEF) heart failure with preserved ejection fraction: Status: Acute Assessment and plan: Lasix 40mg IV tid transitioned to oral lasix 80 mg BID Continue -daily weights, -I/O: christensen catheter for strict I&O around 2000 ml/24 hours -Diet: Heart healthy: low Na diet and fluid restriction -US Echo completed LEVF 60% RVSP 52 mmHg with normal RV size and function Sclerotic aortic valve with trace regurgitation -Monitor H/H for recent GIB -Pharmacological DVT prophylaxois on hold d/t Cr up from 20 to 30, Stool for occult blood pending,hemoglobin is stable -Fe was 22 on 01/04 will give one dose of iron sucrose IV on 01/11/2024; Fe 35 today Iron sucrose IV ordered. -Low suspicion for PE as SOB and sat were responsive to O2 supplementation but the ED obtained a D-dimer which was elevated, not considering VQ scan at this time as patient's clinical picture is improving, sat on RA at rest today 93% -IS ordered: diminished lung bases but improved continue CPAP at night and IS Surrogate Decision Maker -Kimberly Pandey ([facility]) -[phone] Qualifiers: Heart failure chronicity: chronic Qualified Code(s): I50.32 - Chronic diastolic (congestive) heart failure (2) Chronic atrial fibrillation: Status: Chronic Assessment and plan: -On ASA 81mg daily for anticoagulation as per SCHOOL PSYCHOLOGY SPECIALIST -She is not on Eliquis anymore due to history of GIB as per surgical consult from previous stay;ASA was recommended then -Atrial fibrillation is rate controlled on Metoprolol Succinate (3) Hypertension: Status: Chronic Assessment and plan: -Continue Norvasc 5mg daily could be increase to 10 mg daily if needed. Upon consultation with Jennifer Buchanan pharmacist, the patient had filled a script for Norvasc 10 mg daily on 12/02/2023. Will not increase the dosage at this time with the increased dose of diuretics . -Also on a beta-deandre but mostly for rate control Qualifiers: Hypertension type: primary hypertension Qualified Code(s): I10 - Essential (primary) hypertension (4) Hyperlipidemia: Status: Acute Assessment and plan: -On home regimen of atorvastatin 20mg orally daily Qualifiers: Hyperlipidemia type: unspecified Qualified Code(s): E78.5 - Hyperlipidemia, unspecified (5) Depression: Status: Chronic Assessment and plan: -On Fluoxetine 20mg orally daily -Affect is flat, engagement in care is hard to obtain, and patient seems unaffected as per nursing report when told about complication of immobility such as bedsores As per misha this is the patient's baseline as per discussion with Richelle Morocho CM, but outpatient medicine adjustement is to be considered Qualifiers: Depression Type: other depression Qualified Code(s): F32.89 - Other specified depressive episodes (6) COPD (chronic obstructive pulmonary disease): Status: Chronic Assessment and plan: -Continue PRN Xopenex -Continue w/ Spiriva Respimat -No acute s& s of exacerbation Qualifiers: COPD type: unspecified COPD Qualified Code(s): J44.9 - Chronic obstructive pulmonary disease, unspecified (7) Anemia: Status: Chronic Assessment and plan: H&H stable , residual from blood loss from GIB As in point 1 re: Iron sucrose (8) TAWANA (obstructive sleep apnea): Status: Chronic Assessment and plan: -Continue home Oxygen 2L NC qhs -Evaluate if increased supplementation needed -Continue CPAP qhs with O2 bleed (9) Discharge planning issues: Status: Acute Assessment and plan: Return to [facility] when medically cleared most likely tomorrow CM to f/u PT consult in progress Discussed with Dr. Hennessy Subjective Subjective Patient reports: no new complaints, feels better, tolerating liquids well, tolerating a regular diet, voiding w/o difficulty (Not sure she would get up to BSC if christensen d/arun), bowel movement, nausea and afebrile; denies still having pain, blood in stool, vomiting, shortness of breath or fever Exam Narrative Exam Narrative: Constitutional The patient is in bed comfortable, short of breath on exertion HENMT: Head is atraumatic. Facial structures with normal appearance Neuro:alert and oriented X 3 Resp: Clear lung bilaterally, right base faint crackles ;diminished bases improving with cough and IS Cardio: A-Fib on tele HR 74, S1, S2,positive murmur, radial and pedal pulses are positive GI: Abdomen is large not distended, soft and non tender, bowel sounds are present Integumentary: No skin lesions or rash on exposed skin, old PICC site to right chest at RA, intact Psych: RASS 0, congruent mood and flat affect at times. Objective Last Vital Signs Temp 36.4 C L 01/13/24 07:26 Pulse 71 01/13/24 07:26 Resp 16 01/13/24 07:26 BP 140/78 01/13/24 07:26 Pulse Ox 99 01/13/24 07:26 Laboratory Results - last 24 hr 01/13/24 06:34 WBC 6.26 RBC 3.34 L Hgb 9.6 L Hct 29.4 L MCV 88 MCH 28.7 MCHC 32.7 RDW 15.8 H Plt Count 270 MPV 10.3 Immature Gran % 0.3 Neutrophils % 53.2 Lymphocytes % 24.9 Monocytes % 14.5 Eosinophils % 5.8 Basophils % 1.3 Nucleated RBC % 0.0 Absolute Neutrophils 3.33 Absolute Lymphocytes 1.56 Absolute Monocytes 0.91 H Absolute Eosinophils 0.36 Absolute Basophils 0.08 Sodium 135 L Potassium 3.5 Chloride 97 L Carbon Dioxide 31.5 Anion Gap 6.5 BUN 37 H Creatinine 2.6 H Est GFR (CKD-EPI 2020) 17.76 Glucose 111 H Calcium 8.7 Magnesium 2.0 Time Spent with Patient Time Spent with Patient: >50 minutes Time was spent: preparing to see the patient(eg.review tests), obtaining and/or reviewing separately otained hiistory, ordering medications,tests, procedures, referring, communicating with other health caregivers homecare, indepentently interpreting results, counseling the patient and care coordination
--- NOTE | 2024-01-13 08:57 | CMPROGNOTE_ITS ---
Date of service: 01/13/24 Time of Service: 08:57 Care Management Progress Note Progress Note Text Progress Note Text: S/O: Paige was lying in bed watching TV when CM met with her. She is pleasant and engages easily in conversation, as she reflects about her time spent living in [place], before moving to the [place] area. Paige enjoyed a session of music therapy and has been talking with her niece Kimberly. Per provider, if Paige may be medically ready for discharge back to [facility] tomorrow. Paige's goal is to eventually transition to a [facility] closer to [place]. CM will follow. A: 83 year old female admitted to [facility] on 01/10/24 with acute on chronic HF wPEF Discharge Anticipated Barriers to Discharge: None Identified Patient/Family Education Needs: Review discharge instructions, discuss Ask Me Three Transportation: Facility Transport Plan: Anticipate Paige will return to [facility] once medically cleared. She will likely transport via EMS due to limited mobility and need for noemí lift transfers. She will follow up with facility providers and her discharge plan of care. CM will continue to follow. SDOH(Care Management) Screening Will the Patient Participate in the Screening?: Declined to provide
[2024-01-13] MEDS: FLUoxetine 20 MG CAP PO (09:13)
[2024-01-13] MEDS: amLODIPine 5 MG TAB PO (09:13)
[2024-01-13] MEDS: Docusate Sodium 100 MG CAP PO ×2 (09:13→19:46)
[2024-01-13] MEDS: Metoprolol CR 100 MG TABCR PO (09:14)
[2024-01-13] MEDS: Spironolactone 25 MG TAB PO (09:14)
[2024-01-13] MEDS: Mirabegron 25 MG TABCR PO (09:14)
[2024-01-13] MEDS: Aspirin E.C. 81 MG TABEC PO ×2 (09:14→19:46)
[2024-01-13] MEDS: Acetaminophen 325 MG TAB 650 MG PO (09:23)
[2024-01-13 09:48] LABS: Lab Add On Test DONE
[2024-01-13 10:01] LABS: Iron 35 ug/dL (50-170)
[2024-01-13] MEDS: Furosemide 20 MG/2 ML VIAL IVP (12:49)
[2024-01-13] MEDS: Normal Saline Flush 10 ML SYR IVP ×2 (12:49→19:40)
[2024-01-13] MEDS: IRON SUCROSE COMPLEX 300 MG in Normal Saline 250 ML 167 MG IVPB (12:49)
--- NOTE | 2024-01-13 13:50 | PT.INTREAT ---
PT Notes Visit Reasons: Acute on Chronic HFwPEF Date: 01/13/24 PRECAUTIONS: Fall. Standard. Activity as tolerated. SUBJECTIVE: pt in bed when approached for therapy this afternoon, pt agreed to participating with therapy session. OBJECTIVE: ? PAIN: none when just in bed, very painful knee and feet after getting up last night and standing in steady lift VITALS: monitored by nursing Therapeutic Activities 43396: Direct one-on-one instruction in dynamic activities to improve functional performance. ?? BED MOBILITY/TRANSFERS? Rolling L/R: mod A Supine-sit: ?mod A ? Sit-supine: ? SBA? Sit-stand: ? not performed? Stand-sit: ??not performed ? Bed-Chair:? ?not performed ? Chair-bed: not performed Provided skilled cues and instruction on performance and technique throughout. Assessment: Pt able to sit on the EOB for 1minute before reporting she feels very dizzy needing to return to hooklying position, pt agreed to attempt to stand up 4 more times but pt would feel dizzy after staying unsupported on the EOB requiring bed mobility transfer going from EOB to supine every interval. pt took rest breaks in between rest break taking pt 3 to 5mins to recover from feeling dizzy. ? Plan of Care/Treatment Plan: 1-2x/day, 7 days/week x1 week. Plan of care has been reviewed with the HEARING AIDE TECHNICIAN providing the service under Physical Therapy direction. Initiate Physical Therapy intervention for strengthening, bed mobility, transfers, gait, stairs, balance training, and use of assistive device. Discharge Plan Patient will benefit from care home facility placement for continued skilled physical therapy services in order to progress mobility level, strength, and balance in preparation for a safe discharge to home. TREATMENT CODE/TIME: 48465 x 20 minutes for 1 unit (1:25?1:45pm).
[2024-01-13] MEDS: Acetaminophen 500 MG TAB 1000 MG PO ×2 (14:44→19:45)
[2024-01-13 14:53] VITALS: BP 120/75; PULSE 76; RESP 18; TEMP 36.9; O2SAT 99
--- NOTE | 2024-01-13 16:21 | CHAPLAIN ---
Paige talked about her visit yesterday with her niece Kimberly and nephew Rajesh. Kimberly is working to get Paige to a facility closer to their home in [place], [place] but for now she will [facility] when she is discharged. She shared some personal history, telling me about living in [place] before moving here, following her sister and brother who moved here to run a bed and breakfast in [place]. Paige is [employer] and yesterday asked for a small cross that I was able to give her.
[2024-01-13] MEDS: Furosemide 80 MG TAB 60 MG PO (17:02)
[2024-01-13] MEDS: Prochlorperazine 10 MG/2 ML VIAL 5 MG IVP (19:38)
[2024-01-13] MEDS: Atorvastatin 20 MG TAB PO (19:45)
[2024-01-13 19:52] VITALS: BP 100/83; PULSE 75; RESP 16; TEMP 36.3; O2SAT 99
[2024-01-13] MEDS: Metoprolol CR 100 MG TABCR 200 MG PO (19:54)
[2024-01-13 22:29] VITALS: BP 120/69; RESP 16; O2SAT 99
[2024-01-13 22:30] VITALS: TEMP 36.3
[2024-01-13 22:48] VITALS: RESP 22
[2024-01-14 03:22] VITALS: BP 114/73; PULSE 72; RESP 16; TEMP 36.5; O2SAT 99
[2024-01-14 06:44] LABS: Abs Immature Grans 0.02 10^3/uL (0.0-0.06); Absolute Basophil Count 0.11 10^3/uL (0.0-0.2); Absolute Eosinophil Count 0.39 10^3/uL (0.0-0.7); Absolute Lymphocyte Count 1.15 10^3/uL (1.2-3.4); Absolute Monocyte Count 0.94 10^3/uL (0.1-0.8); Absolute Neutrophil Count 5.88 10^3/uL (1.2-6.7); Basophils % 1.3 %; Eosinophils % 4.6 %; HCT 27.2 % (36.0-46.0); Immature Grans % 0.2 %; Lymphocytes % 13.5 %; MCH 28.7 pg (27.0-33.0); MCHC 33.1 % (32.0-36.0); MCV 87 fL (80-95); MPV 9.8 fL (8.0-11.0); Monocytes % 11.1 %; Neutrophils % 69.3 %; Platelet Count 262 10^3/uL (130-400); RBC 3.14 10^6/uL (3.93-5.22); RDW 15.9 % (11.7-14.6); RDW-SD 50.9 fL; WBC 8.49 10^3/uL (4.4-10.8)
[2024-01-14 07:08] VITALS: BP 132/83; PULSE 72; RESP 17; TEMP 36.9; O2SAT 99
[2024-01-14 07:21] LABS: Anion Gap 8.5 mmol/L (3-11); BUN 39 mg/dL (7-18); CO2 29.5 mmol/L (21.0-32.0); CREATININE 2.4 mg/dL (0.55-1.02); Chloride 99 mmol/L (98-107); Estimated GFR 19.55 (mL/min/1.73m2); Glucose 117 mg/dL (74-106); Magnesium 2.1 mg/dL (1.8-2.4); Potassium 3.3 mmol/L (3.5-5.1); Sodium 137 mmol/L (136-145)
[2024-01-14] MEDS: Tiotropium Bromide-Respimat 10 PUFF INH 2 PUFF IH (07:48)
[2024-01-14] MEDS: Fluticasone NASAL SPRAY 16 GM BTL NS (08:18)
[2024-01-14] MEDS: Docusate Sodium 100 MG CAP PO (08:19)
[2024-01-14] MEDS: Mirabegron 25 MG TABCR PO (08:20)
[2024-01-14] MEDS: Ferrous Sulfate 325 MG TAB PO (08:20)
[2024-01-14] MEDS: Aspirin E.C. 81 MG TABEC PO (08:20)
[2024-01-14] MEDS: FLUoxetine 20 MG CAP PO (08:21)
[2024-01-14] MEDS: Spironolactone 25 MG TAB PO (08:21)
[2024-01-14] MEDS: Acetaminophen 500 MG TAB 1000 MG PO (08:22)
[2024-01-14] MEDS: Famotidine 20 MG TAB 10 MG PO (08:23)
[2024-01-14] MEDS: amLODIPine 5 MG TAB PO (08:24)
[2024-01-14] MEDS: Metoprolol CR 100 MG TABCR PO (08:25)
[2024-01-14] MEDS: Normal Saline Flush 10 ML SYR IVP (08:25)
--- NOTE | 2024-01-14 09:43 | CMDISCH_ITS ---
Date of service: 01/14/24 Time of Service: 09:43 LACE Index Scoring Tool Questions: Length of Stay (in days): 4 - 6 Was the patient admitted via the E.D.?: Yes Comorbidities: Congestive Heart Failure and Chronic Pulmonary Disease E.D. Visits: 2 Answers: Total Score: 14 Risk of Readmission: High Risk Care Management Discharge Plan Reason for Hospitalization: Acute on Chronic wPEF Discharge Plan: Paige is discharged back to [facility] for STR. Pt will follow up with community providers and her discharge plan of care as instructed. Patient/Family Education Needs: Review discharge instructions, limitations and plan to follow up with community providers. Discuss ask me three. Services Needed at Discharge: Longterm Facility ([facility]) and Transportation (Facility w/c [facility]) SDOH Health Related Social Needs: No Data to Display
--- NOTE | 2024-01-14 10:20 | W.PM.DS.N ---
Date of service: 01/14/24 Time of Service: 10:21 DS: Diagnosis Discharge Diagnosis (1) (HFpEF) heart failure with preserved ejection fraction: Status: Acute (2) Chronic atrial fibrillation: Status: Chronic (3) Hypertension: Status: Chronic (4) Hyperlipidemia: Status: Acute (5) Depression: Status: Chronic (6) COPD (chronic obstructive pulmonary disease): Status: Chronic (7) Anemia: Status: Chronic (8) TAWANA (obstructive sleep apnea): Status: Chronic Discharge Plan Disposition Patient Disposition: [facility]pc Facility(SNF) Condition: Improving Discharge Details Reason For Visit: Acute on Chronic HFwPEF Admit Date/Time: 01/10/24 00:06 Admit Provider: Calixto Nichols Attending Provider: Calixto Nichols Primary Care Provider: Blade Thayer Hospital Course Hospital Course: This 83-year-old female patient with a past medical history of recent lower GI bleed, atrial fibrillation on aspirin only per surgery s/p GIB recommendation, recent gallbladder surgery with ongoing biliary drain, type 2 diabetes, COPD, hypertension, HFpEF on furosemide, CKD, GERD presented to the ED at [facility] on 01/09/2024 via EMS from [facility] rehab for evaluation of substernal chest pain and dyspnea over the past 24 hours. The patient presented with tachycardia and was in atrial fibriilation with HR 114 as per EKG w/o ST elevation or sign of acute ischemia. Troponin was negative. Hemoglobin was 9, up from 7.6 on 01/04; no reported melena or hematochezia. Workup in the ED was positive for a BNP of 9113 and Cr of 1.8 similar to baseline, a D-dimer of 996. Imaging showed bilateral increased interstitial lung marking with minor pleural effusions suggestive of CHF or interstitial edema. Infectious disease workup was negative.In the ED, The patient received Lasix 40 mg IVP and metoprolol 5 mg IVP. The hospitalist was contacted and the patient admitted to the medical surgical floor with telemetry for acute of chronic heart failure exacerbation. The echocardiogram ultrasound showed left ventricular ejection fraction of 60% with mild concentric left ventricular hypertrophy without wall motion abnormalities. The right ventricle systolic function was grossly normal but RVSP was 52 mmHg. The inferior vena cava collapsed over 50% with inspiration. IV Lasix was continued on the floor and the patient was transitioned to furosemide and required an extra dose of IV lasix during the transition. Thus the patient will be discharge on oral torsemide which is more effective than oral lasix. Creatinine had maxed out at 2.6 and his now down trending at 2.4. The patient will require a BMP. a magnesium level as an outpatient in a week as well as a CBC and an iron studies with result to be send to Peterson Thayer MD for follow-up within 7days of discharge. The patient came in with a cholescystotomy tube that remained patent and was flushed BID with 10 cc of sterile saline, with dressing change weekly an PRN; this regimen will be maintained upon discharge and the patient will have to follow up with GI where the insertion procedure was completed regarding the tube management and the need for removal or a cholescystectomy.The patient's chronic condition were treated as per her outpatient medicine regimen adjusted to her renal function. The patient has been on zoloft for depression, but often displayed a flat affect without suicidal ideation; the patient might need adjustment of her pharmacological regimen to treat her depression as an outpatient. The patient agrees that she should continue physical therapy as it was done and still recommended upon discharge. The patient will be discharge to [facility] today. discussed with Dr. Hennessy Potwin Meds and New Rx's Prescriptions: New famotidine 20 mg Tablet 10 mg PO Q48H Qty: 15 0RF torsemide 40 mg tablet 40 mg PO BID Qty: 60 0RF fesoterodine 8 mg tablet extended release 24 hr 8 mg PO DAILY Qty: 30 0RF Rx Instructions: Was on this medicine prior acetaminophen 500 mg Tablet 1,000 mg PO TID Qty: 160 0RF spironolactone 25 mg Tablet 25 mg PO DAILY Qty: 30 0RF ondansetron 4 mg tablet,disintegrating 4 mg PO Q8H PRNQty: 10 0RF Continued amlodipine 5 mg tablet 5 mg PO DAILY fesoterodine 8 mg tablet extended release 24 hr 8 mg PO DAILY fluoxetine 20 mg capsule 20 mg PO DAILY fluticasone propionate [24 Hour Allergy Relief] 50 mcg/actuation spray,suspension 1 spray intranasal BID Rx Instructions: administer into each nostril metoprolol succinate [Toprol XL] 100 mg tablet extended release 24 hr 100 mg PO DAILY Spiriva Respimat 2.5 mcg/actuation mist 2 inh inhalation DAILY trazodone 50 mg tablet 50 mg PO QHS PRN atorvastatin 20 mg tablet 20 mg PO QHS cholecalciferol (vitamin D3) 25 mcg (1,000 unit) tablet 75 mcg PO DAILY Patient Comments: TAKE 3 TABLETS BY MOUTH DAILY docusate sodium [Colace] 100 mg Capsule 100 mg PO BID Qty: 0 0RF Preparation H 0.25-14-74.9 % Ointment 1 applic DC BID Qty: 0 0RF ferrous sulfate 325 mg (65 mg iron) tablet 325 mg PO Q48H Qty: 15 0RF aspirin [Enteric Coated Aspirin] 81 mg tablet,delayed release (DR/EC) 81 mg PO BID Qty: 60 0RF Changed mirabegron [Myrbetriq] 50 mg tablet extended release 24 hr 25 mg PO DAILY Qty: 0 0RF Discontinued famotidine [Acid Controller] 20 mg tablet 20 mg PO DAILY furosemide 40 mg tablet 40 mg PO BID acetaminophen [Tylenol Extra Strength] 500 mg tablet 1,000 mg PO Q8H PRN PRN Discharge Instructions Stand Alone Forms: Nursing Discharge Form Activity:: Activity as Tolerated Equipment/Supplies:: Walker Diet:: heart healthy 2gm Na Discharge Orders Discharge Orders: Discharge Order (Routine); Ordered 01/14/24 Ordered By: Soledad Beasley Other Ambulatory Orders: Basic Metabolic Panel (Routine) Timeframe: 20240120 Facility: [facility] - Location: [facility] Out[facility] Ordered By: Soledad Beasley Complete Blood Count w/Diff (Routine) Timeframe: 20240120 Facility: [facility] - Location: [facility] Outpatient [facility] Ordered By: Soledad Beasley Ferritin (Routine) Timeframe: 20240120 Facility: [facility] - Location: [facility] Outpatient [facility] Ordered By: Soledad Beasley Iron (Routine) Timeframe: 20240120 Facility: [facility] - Location: [facility] Outpatient - [facility] Ordered By: Soledad Beasley Magnesium (Routine) Timeframe: 20240120 Facility: [facility] - Location: [facility] Ordered By: Soledad Beasley Discharge Data Discharge Date/Time-TO BE ENTERED AT DEPARTURE: 01/14/24 11:50 DS: Summary Time Spent with Patient providing and/or coordinating discharge services: Greater than 30 minutes Status at Discharge Functional status at discharge: uses cane/walker (for transfer but was pulling herself in a wheelchair at home ) Overall status at discharge: patient is progressing back to baseline Mental Status: mental status grossly normal Speech and Movement: speech and movement normal Mood: congruent mood Affect: normal affect Quality:SDOH Health Related Social Needs: No Data to Display Exam Narrative Exam Narrative: Constitutional The patient is in bed comfortable, no obvious shortness of breath HENMT: Facial structures with normal appearance Neuro:alert and oriented X 3 , but off by one day Resp: Clear lung bilaterally,diminished bases improving with deep breathing and cough Cardio: A-Fib on tele HR 75, S1, S2,positive murmur, radial and pedal pulses are positive, no edema to LEs GI: Abdomen is large not distended, soft and non tender, bowel sounds are present : No CVA tenderness Integumentary: No skin lesions or rash on exposed skin, old PICC site to right chest at RA, intact Psych: RASS 0, congruent mood and flat affect at times. Psych Mental Status: mental status grossly normal Speech and Movement: speech and movement normal Mood: congruent mood Affect: normal affect DS: Data Vitals/I&O Vitals and I&O: Vital Signs Temperature 36.9 C 01/14/24 07:08 Temperature Source Tympanic 01/14/24 07:08 Pulse 72 01/14/24 07:08 Pulse Rhythm Irregular 01/14/24 08:45 Pulse 96 H 01/10/24 00:40 Respiratory Rate 17 01/14/24 07:08 Respiratory Effort Normal, Non-Labored 01/14/24 08:45 Respiratory Depth Normal 01/14/24 08:45 Respiratory Pattern Normal 01/14/24 08:45 Blood Pressure 132/83 01/14/24 07:08 Blood Pressure Mean 117 01/10/24 00:31 Pulse Oximetry 99 01/14/24 07:08 Oxygen Delivery Method Nasal Cannula 01/14/24 07:08 Oxygen Flow Rate 2 01/14/24 07:08 Pain Level 3 01/14/24 07:08 Intake & Output 01/13/24 01/13/24 01/14/24 11:59 23:59 11:59 Intake Total 380 / 1455 1075 / 1455 370 / 370 Output Total 350 / 1575 1225 / 1575 950 / 950 Balance 30 / -120 -150 / -120 -580 / -580 Weight 97.537 kg 100.4 kg Intake: IV 265 / 275 Oral 360 / 1160 800 / 1160 360 / 360 Injectate Right Upper Abdomen Output: Drainage 150 / 350 200 / 350 100 / 100 Right Upper Abdomen 150 / 350 200 / 350 100 / 100 Urine 200 / 1225 1025 / 1225 850 / 850 Other: Urine Color Yellow Pale Yellow Yellow Urine Appearance Clear Clear Clear Stool Size Smear Smear Smear Stool Characteristics Brown Brown Brown Data Completed and Pending Labs on day of discharge: Labs from last 24 hours 01/14/24 06:36 WBC 8.49 RBC 3.14 L Hgb 9.0 L Hct 27.2 L MCV 87 MCH 28.7 MCHC 33.1 RDW 15.9 H Plt Count 262 MPV 9.8 Immature Gran % 0.2 Neutrophils % 69.3 Lymphocytes % 13.5 Monocytes % 11.1 Eosinophils % 4.6 Basophils % 1.3 Nucleated RBC % 0.0 Absolute Neutrophils 5.88 Absolute Lymphocytes 1.15 L Absolute Monocytes 0.94 H Absolute Eosinophils 0.39 Absolute Basophils 0.11 Sodium 137 Potassium 3.3 L Chloride 99 Carbon Dioxide 29.5 Anion Gap 8.5 BUN 39 H Creatinine 2.4 H Est GFR (CKD-EPI 2020) 19.55 Glucose 117 H Calcium 9.0 Magnesium 2.1 PFSH All Active Problems (Updated 01/15/24 @ 00:06 by CECILIA LINK) Palliative care patient (Acute) TAWANA (obstructive sleep apnea) (Chronic) Hyperlipidemia (Acute) Hypertension (Chronic) CRF (chronic renal failure) (Acute) Respiratory failure (Acute) Pleural effusion (Acute) Acute dyspnea (Acute) Bleeding hemorrhoids (Acute) Left arm pain (Acute) Hypokalemia (Acute) Edema of left upper extremity (Chronic) Depression (Chronic) COPD (chronic obstructive pulmonary disease) (Chronic) Colitis (Acute) Acute blood loss anemia (Acute) Diverticulosis (Chronic) Chronic atrial fibrillation (Chronic) Acute GI bleeding (Acute) Anticoagulant long-term use (Acute) Anemia (Chronic) (HFpEF) heart failure with preserved ejection fraction (Acute) Medical History (Updated 01/15/24 @ 00:06 by CECILIA LINK) Advanced care planning/counseling discussion CHF (congestive heart failure) Social History Smoking/Tobacco Use Status: Former Tobacco Use Smoking risk assessment performed?: Yes Housing: [facility] Time Spent with Patient Time Spent with Patient: >85 minutes Time was spent: preparing to see the patient(eg.review tests), obtaining and/or reviewing separately otained hiistory, ordering medications,tests, procedures, referring, communicating with other health interior plant caretaker, indepentently interpreting results, counseling the patient and care coordination
== END 2024-01-14 11:50 | disposition skilled nursing facility (03) | DRG 291 ==
LOC: ER 23:30 → MS 01-10 01:02
PROVIDERS: Internal Medicine; Nurse Practitioner Acute Care; Admitting Provider Student in an Organized Health Care Education/Training Program; Emergency Provider Physician Assistant; PCP Family Medicine; Visit Provider Student in an Organized Health Care Education/Training Program
DX: I13.0 Hypertensive heart and chronic kidney disease with heart failure and stage 1 through stage 4 chronic kidney disease, or unspecified chronic kidney disease (principal); I50.33 Acute on chronic diastolic (congestive) heart failure; I48.20 Chronic atrial fibrillation, unspecified; E11.9 Type 2 diabetes mellitus without complications; G47.33 Obstructive sleep apnea (adult) (pediatric); N18.9 Chronic kidney disease, unspecified; K64.8 Other hemorrhoids; E87.6 Hypokalemia; J44.9 Chronic obstructive pulmonary disease, unspecified; K57.90 Diverticulosis of intestine, part unspecified, without perforation or abscess without bleeding; Z79.01 Long term (current) use of anticoagulants; Z87.891 Personal history of nicotine dependence; D64.9 Anemia, unspecified; F32.89 Other specified depressive episodes
CPT/HCPCS: 00123; 36415; 80048; 80053; 83690; 85027; 87637; 93005; 93306; 94640; 96374; 96375; 97163; 97530; 99291; 71045; 82270; 83540; 83735; 83880; 84439; 84443; 84484; 85014; 85018; 85025; 85379; 93010; 94664; 94760; 99222; 99232; 99233; 99238; J0780; J1644; J1756; J1940; J1941; J7613

== ENCOUNTER 2024-02-02 16:24 | Outpatient (REF) | payer MEDICARE, MEDICAID, SELFPAY ==
[2024-02-02 16:47] LABS: Abs Immature Grans 0.02 10^3/uL (0.0-0.06); Absolute Basophil Count 0.07 10^3/uL (0.0-0.2); Absolute Eosinophil Count 0.56 10^3/uL (0.0-0.7); Absolute Lymphocyte Count 0.97 10^3/uL (1.2-3.4); Absolute Monocyte Count 0.84 10^3/uL (0.1-0.8); Absolute Neutrophil Count 4.32 10^3/uL (1.2-6.7); Eosinophils % 8.3 %; HCT 29.7 % (36.0-46.0); HGB 9.9 g/dL (11.2-15.7); Immature Grans % 0.3 %; Lymphocytes % 14.3 %; MCH 29.6 pg (27.0-33.0); MCHC 33.3 % (32.0-36.0); MCV 89 fL (80-95); Monocytes % 12.4 %; Neutrophils % 63.7 %; Platelet Count 246 10^3/uL (130-400); RBC 3.35 10^6/uL (3.93-5.22); RDW 16.6 % (11.7-14.6); WBC 6.78 10^3/uL (4.4-10.8)
[2024-02-02 17:04] LABS: ALT 17 U/L (14-59); AST 15 U/L (15-37); Albumin 2.9 g/dL (3.4-5.0); Alkaline Phosphatase 101 U/L (46-116); Anion Gap 10.9 mmol/L (3-11); Bilirubin, Total 0.49 mg/dL (0.2-1.0); CO2 27.1 mmol/L (21.0-32.0); Calcium 9.2 mg/dL (8.5-10.1); Chloride 90 mmol/L (98-107); Estimated GFR 10.92 (mL/min/1.73m2); Glucose 123 mg/dL (74-106); Potassium 4.4 mmol/L (3.5-5.1); Sodium 128 mmol/L (136-145); Total Protein 6.8 g/dL (6.4-8.2)
[2024-02-02 17:42] LABS: BUN 88 mg/dL (7-18); CREATININE 3.9 mg/dL (0.55-1.02)
== END 2024-02-02 16:25 | disposition home or self-care (01) ==
LOC: LBN 16:24
PROVIDERS: PCP Family Medicine; Visit Provider Family Medicine
DX: D50.0 Iron deficiency anemia secondary to blood loss (chronic) (principal); I50.43 Acute on chronic combined systolic (congestive) and diastolic (congestive) heart failure; J44.9 Chronic obstructive pulmonary disease, unspecified
CPT/HCPCS: 80053; 85025

== ENCOUNTER 2024-02-03 13:06 | Outpatient (REF) | payer MEDICARE, MEDICAID, SELFPAY ==
[2024-02-03 17:45] LABS: CREATININE 3.5 mg/dL (0.55-1.02); Calcium 9.2 mg/dL (8.5-10.1); Chloride 92 mmol/L (98-107); Estimated GFR 12.43 (mL/min/1.73m2); Glucose 117 mg/dL (74-106); Potassium 4.3 mmol/L (3.5-5.1); Sodium 130 mmol/L (136-145)
[2024-02-03 18:04] LABS: BUN 86 mg/dL (7-18)
== END 2024-02-03 13:07 | disposition home or self-care (01) ==
LOC: LBN 13:06
PROVIDERS: PCP Family Medicine; Visit Provider Family Medicine
DX: I50.43 Acute on chronic combined systolic (congestive) and diastolic (congestive) heart failure (principal)
CPT/HCPCS: 80048

== ENCOUNTER 2024-02-05 14:09 | Outpatient (REF) | payer MEDICARE, MEDICAID, SELFPAY ==
[2024-02-05 18:43] LABS: Anion Gap 12.5 mmol/L (3-11); CO2 24.5 mmol/L (21.0-32.0); Calcium 9.9 mg/dL (8.5-10.1); Chloride 91 mmol/L (98-107); Estimated GFR 11.63 (mL/min/1.73m2); Glucose 131 mg/dL (74-106); Potassium 4.9 mmol/L (3.5-5.1); Sodium 128 mmol/L (136-145)
[2024-02-05 19:49] LABS: BUN 89 mg/dL (7-18); CREATININE 3.7 mg/dL (0.55-1.02)
== END 2024-02-05 14:10 | disposition home or self-care (01) ==
LOC: LBN 14:09
PROVIDERS: PCP Family Medicine; Visit Provider Family Medicine
DX: R68.89 Other general symptoms and signs (principal)
CPT/HCPCS: 80048

== ENCOUNTER 2024-02-06 14:01 | Inpatient (IN) | payer MEDICARE, OTHER, MEDICAID, SELFPAY ==
[2024-02-06] VITALS (33 sets, daily range): BP systolic 98–126; BP diastolic 65–102; PULSE 70–99; RESP 12–28; TEMP 36.1–36.6; O2SAT 2–100
--- NOTE | 2024-02-06 14:00 | RT.EKG_ITS ---
APPROVED REPORT Exam: Resting ECG Reason for Exam: vomiting Patient Location: E HR:88 bpm ECG Measurements Heart Rate 88 AXIS LA [id number] P [id number] QRSd 94 QRS -29 QT 376 T 36 QTc 456 Conclusion Atrial fibrillation. 88 no change from prior no stemi
--- NOTE | 2024-02-06 14:11 | ED.GENADUL_ITS ---
Discharge Plan Discharge Details Chief Complaint: Abd Prob Admit Date/Time: 02/06/24 16:41 Admit Provider: Leon Cantu Attending Provider: Leon Cantu Primary Care Provider: Blade Thayer ED Provider: Reynold Ruiz Discharge Data Discharge Date/Time-TO BE ENTERED AT DEPARTURE: 02/06/24 17:30 HPI General Date/Time Provider Initiated Documentation: 02/06/24 14:08 . Limitations to Documentation: no limitations . Information obtained by: patient . HPI Narrative: 83-year-old female with past medical history of COPD, oxygen dependence, CHF, A- fib presents via ambulance from [facility] with vomiting and abdominal pain. Patient reports this has been ongoing for the last couple of days. She reports very small bowel movements. She states that she has had persistent vomiting. Per report, the provider at the rehab facility was concern for worsening kidney function. The patient reports that she is always on oxygen lately. She has not tried any medication for relief of the vomiting. Related Data Home Medications Medication Instructions Recorded Confirmed amlodipine 5 mg tablet 5 mg PO DAILY 01/02/24 02/06/24 atorvastatin 20 mg tablet 20 mg PO QHS 01/02/24 02/06/24 fesoterodine 8 mg tablet,extended 8 mg PO DAILY 01/02/24 02/06/24 release 24 hr fluoxetine 20 mg capsule 20 mg PO DAILY 01/02/24 02/06/24 fluticasone propionate 50 1 spray intranasal BID 01/02/24 02/06/24 mcg/actuation nasal spray,suspension (24 Hour Allergy Relief) metoprolol succinate 100 mg 100 mg PO DAILY 01/02/24 02/06/24 tablet,extended release 24 hr (Toprol XL) tiotropium bromide 2.5 2 inh inhalation DAILY 01/02/24 02/06/24 mcg/actuation mist for inhalation (Spiriva Respimat) trazodone 50 mg tablet 50 mg PO QHS PRN 01/02/24 02/06/24 cholecalciferol (vitamin D3) 25 75 mcg PO DAILY 01/05/24 02/06/24 mcg (1,000 unit) tablet docusate sodium 100 mg capsule 100 mg PO BID #0 caps 01/05/24 02/06/24 (Colace) phenylephrine 0.25 %-mineral oil 1 applic [place] BID #0 grams 01/05/24 02/06/24 14 %-petrolatm 74.9 % rectal ointment (Preparation H) aspirin 81 mg tablet,delayed 81 mg PO BID #60 tabs 01/06/24 02/06/24 release (Enteric Coated Aspirin) ferrous sulfate 325 mg (65 mg 325 mg PO Q48H #15 tabs 01/06/24 02/06/24 iron) tablet acetaminophen 500 mg tablet 1,000 mg (2 x 500 mg) PO TID #160 01/14/24 02/06/24 tabs famotidine 20 mg tablet 10 mg (1/2 x 20 mg) PO Q48H #15 01/14/24 02/06/24 tabs mirabegron 50 mg tablet,extended 25 mg (1/2 x 50 mg) PO DAILY #0 01/14/24 02/06/24 release 24 hr (Myrbetriq) tabs ondansetron 4 mg disintegrating 4 mg PO Q8H PRN #10 tabs 01/14/24 02/06/24 tablet spironolactone 25 mg tablet 25 mg PO DAILY #30 tabs 01/14/24 02/06/24 torsemide 40 mg tablet 40 mg PO BID #60 tabs 01/14/24 02/06/24 albuterol sulfate 2.5 mg/3 mL 2.5 mg continuous nebulization Q6H 02/06/24 02/06/24 (0.083 %) solution for nebulization PRN esomeprazole magnesium 20 mg 20 mg PO DAILY PRN 02/06/24 02/06/24 capsule,delayed release Previous Rx's Medication Instructions Recorded docusate sodium 100 mg capsule 100 mg PO BID #0 caps 01/05/24 (Colace) phenylephrine 0.25 %-mineral oil 1 applic [place] BID #0 grams 01/05/24 14 %-petrolatm 74.9 % rectal ointment (Preparation H) aspirin 81 mg tablet,delayed 81 mg PO BID #60 tabs 01/06/24 release (Enteric Coated Aspirin) ferrous sulfate 325 mg (65 mg 325 mg PO Q48H #15 tabs 01/06/24 iron) tablet acetaminophen 500 mg tablet 1,000 mg (2 x 500 mg) PO TID #160 01/14/24 tabs famotidine 20 mg tablet 10 mg (1/2 x 20 mg) PO Q48H #15 01/14/24 tabs mirabegron 50 mg tablet,extended 25 mg (1/2 x 50 mg) PO DAILY #0 01/14/24 release 24 hr (Myrbetriq) tabs ondansetron 4 mg disintegrating 4 mg PO Q8H PRN #10 tabs 01/14/24 tablet spironolactone 25 mg tablet 25 mg PO DAILY #30 tabs 01/14/24 torsemide 40 mg tablet 40 mg PO BID #60 tabs 01/14/24 Allergies Allergy/AdvReac Type Severity Reaction Status Date / Time duloxetine [From Cymbalta] Allergy Unknown Unknown Verified 01/10/24 00:14 hydrochlorothiazide Allergy Unknown Unknown Verified 01/10/24 00:14 indomethacin [From Indocin] Allergy Unknown Unknown Verified 01/10/24 00:14 lisinopril Allergy Unknown Unknown Verified 01/10/24 00:14 oxybutynin Allergy Unknown Unknown Verified 01/10/24 00:14 tolmetin Allergy Unknown Unknown Verified 01/10/24 00:14 triamterene Allergy Unknown Unknown Verified 01/10/24 00:14 banana Allergy Unknown Verified 01/10/24 00:14 General Stated Complaint: Abd Prob EVAN: 3 Exam Narrative Exam Narrative: Review of Systems: All systems reviewed & are unremarkable except as noted in HPI and below Obese, chronically ill-appearing NCAT PERRL, normal conjunctiva a fib Unlabored respiratory effort clear bilaterally, on 2 L nasal cannula Nondistended abdomen soft nontender Extremities w/o deformity, no cyanosis, no edema No rashes or lesions. no focal neurologic deficits Appropriate mood and affect Course Vital Signs Vital signs: Vital Signs Temperature 36.6 C 02/06/24 13:55 Pulse 85 02/06/24 13:55 Respiratory Rate 16 02/06/24 13:55 Blood Pressure 117/91 H 02/06/24 13:55 Pulse Oximetry 100 02/06/24 13:55 Temperature 36.6 C 02/06/24 13:55 Temperature Source Oral 02/06/24 13:55 Pulse 85 02/06/24 13:55 Respiratory Rate 16 02/06/24 13:55 Blood Pressure 117/91 H 02/06/24 13:55 Pulse Oximetry 100 02/06/24 13:55 Oxygen Delivery Method Nasal Cannula 02/06/24 13:55 Oxygen Flow Rate 2 02/06/24 13:55 Pain Level 6 02/06/24 13:55 Medical Decision Making Emergent evaluation of vomiting. Initial differential includes bowel obstruction, dehydration, electrolyte derangement, organ failure. This could be a presenting symptom of atypical angina. Patient has multiple risk factors and known CHF. She is actively vomiting on initial evaluation, but is hemodynamically stable. Plan for lab work, antiemetics, CT imaging to evaluate acute intra-abdominal process. 1440 EKG : afib, no change from prior 1550 labs reviewed: no leukocytosis or anemia. Electrolyte derangements noted and reviewed prior lab work. Over the last 4 days the his lab derangements have been present. At the time of discharge on January 13 lab work appeared normal. She does have hyponatremia, and elevated anion gap. BUN and creatinine are elevated as well. There is no elevation in the troponin. At this time the patient has not made any urine. I have noted that she is on furosemide twice daily, unclear how long this has been held per note. Although I do not feel the patient needs emergent dialysis at this time, I am concerned about the worsening renal failure. Because there are no dialysis capabilities at this facility, I have reached out to [facility] nephrology for consultation and advisement. Discussed with nephrology team. No indication for emergent dialysis. Recommend monitoring KELLY. Urinalysis evaluating for abnormalities in the urine. Advised assessing volume status, as it is secondary to overdiuresis or worsened heart failure. Appreciate their recommendations. Discussed with hospitalist, there does appear to be some element of volume depletion, so we will give 500 cc bolus to see how she responds urinalysis demonstrates some concern for infection. An antibiotic will be given. Gold catheter placed to more closely monitor ins and outs. Will admit to the hospital for further management and evaluation. Medical Records Medical records reviewed: Yes I reviewed the patient's medical records. Lab Data Lab results reviewed: Yes I reviewed the patient's lab results. Quality:SDOH Health Related Social Needs: No Data to Display PFSH All Active Problems (Updated 02/06/24 @ 17:22 by Rosita Verma NP) UTI (urinary tract infection) (Acute) Discharge planning issues (Acute) Constipation (Acute) Acute kidney injury (Acute) Palliative care patient (Acute) TAWANA (obstructive sleep apnea) (Chronic) Hyperlipidemia (Acute) Hypertension (Chronic) CRF (chronic renal failure) (Acute) Respiratory failure (Acute) Pleural effusion (Acute) Acute dyspnea (Acute) Bleeding hemorrhoids (Acute) Left arm pain (Acute) Edema of left upper extremity (Chronic) Depression (Chronic) COPD (chronic obstructive pulmonary disease) (Chronic) Colitis (Acute) Acute blood loss anemia (Acute) Diverticulosis (Chronic) Chronic atrial fibrillation (Chronic) Acute GI bleeding (Acute) Anticoagulant long-term use (Acute) Anemia (Chronic) (HFpEF) heart failure with preserved ejection fraction (Acute) Medical History Advanced care planning/counseling discussion CHF (congestive heart failure) Social History Smoking/Tobacco Use Status: Never Smoking risk assessment performed?: Yes Alcohol Intake: former Housing: group home Do you feel safe at home: Yes
[2024-02-06] MEDS: Ondansetron 4 MG/2 ML VIAL 8 MG IVP (14:23)
[2024-02-06] MEDS: FAMOTIDINE 20 MG in Normal Saline 100 ML 400 MG IVPB (14:23)
[2024-02-06 14:24] LABS: Abs Immature Grans 0.04 10^3/uL (0.0-0.06); Absolute Basophil Count 0.06 10^3/uL (0.0-0.2); Absolute Eosinophil Count 0.51 10^3/uL (0.0-0.7); Absolute Lymphocyte Count 0.92 10^3/uL (1.2-3.4); Absolute Monocyte Count 0.96 10^3/uL (0.1-0.8); Absolute Neutrophil Count 8.21 10^3/uL (1.2-6.7); Basophils % 0.6 %; Eosinophils % 4.8 %; HCT 34.4 % (36.0-46.0); HGB 11.7 g/dL (11.2-15.7); Immature Grans % 0.4 %; Lymphocytes % 8.6 %; MCH 29.6 pg (27.0-33.0); MCV 87 fL (80-95); MPV 9.4 fL (8.0-11.0); Neutrophils % 76.6 %; Platelet Count 274 10^3/uL (130-400); RBC 3.95 10^6/uL (3.93-5.22); RDW-SD 51.4 fL
[2024-02-06 14:45] LABS: ALT 17 U/L (14-59); AST 19 U/L (15-37); Albumin 3.2 g/dL (3.4-5.0); Alkaline Phosphatase 103 U/L (46-116); Anion Gap 13.7 mmol/L (3-11); Bilirubin, Total 0.65 mg/dL (0.2-1.0); CO2 22.3 mmol/L (21.0-32.0); CREATININE 3.3 mg/dL (0.55-1.02); Calcium 9.7 mg/dL (8.5-10.1); Chloride 91 mmol/L (98-107); Estimated GFR 13.34 (mL/min/1.73m2); Glucose 132 mg/dL (74-106); Lipase 20 U/L (16-77); Magnesium 2.3 mg/dL (1.8-2.4); Potassium 4.6 mmol/L (3.5-5.1); Sodium 127 mmol/L (136-145); Total Protein 8.4 g/dL (6.4-8.2); Troponin I < 50 ng/L (< or =60)
[2024-02-06 14:50] LABS: BUN 84 mg/dL (7-18)
--- NOTE | 2024-02-06 15:16 | DI.CT_ITS ---
Exam(s) CT ABDOMEN PELVIS WO EXAM: CT ABDOMEN PELVIS WO CLINICAL HISTORY: abdominal pain , vomiting. TECHNIQUE: Imaging Protocol: Axial computed tomography images with coronal and sagittal reformatted images were created and reviewed. COMPARISON: CT CT ABDOMEN PELVIS W from 01/02/2024 FINDINGS: The examination is limited due to patient motion artifact. ABDOMEN: Lung Bases: Cardiomegaly. Coronary artery calcifications are present. There has been resolution of the bilateral pleural effusions and basilar infiltrates with minimal atelectatic changes in the right lower lobe. There is again seen a 3 mm nodule in the right lower lobe. Liver: Normal density. No measurable mass. Gallbladder and biliary tract: No radiodense calculus or biliary ductal dilation. Pancreas: There is marked fatty replacement of the pancreas. Spleen: Normal. Kidneys: Normal size, contour and axis.There is a nonobstructing stone in the lower pole of the left kidney. No masses seen. Adrenal glands: No mass is seen. Lymph nodes: Within normal limits. Abdominal Aorta: Abdominal portion non-dilated. Atherosclerotic calcification is present. PELVIS: Bladder:Symmetric distention, no gross wall thickening. Bowel: There is a large amount of stool in the rectum suggesting fecal impaction. There is stool thr oughout the colon consistent with constipation. There is diverticulosis of the colon. There is mild stranding seen in the junction of the descending colon and sigmoid colon. Mild diverticulitis canno t be excluded. The remainder of the bowel is unremarkable. There is no evidence of obstruction. Ap pendix is unremarkable. Peritoneal cavity: No ascites, collection or mesenteric inflammatory response. No free air. Reproductive organs: Unremarkable as visualized. Bones: Degenerative changes are seen in the spine. Soft Tissues: There is a fat containing umbilical hernia IMPRESSION: 1. There is colonic diverticulosis. There is mild stranding at the junction of the sigmoid colon and descending colon suggesting a mild acute diverticulitis. No abscess or free air. 2. 3 mm right lower lobe pulmonary nodule. Solid nodules smaller than 6 mm do not require routine follow-up in all patients with high clinical r isk; however, some nodules smaller than 6 mm with suspicious morphology, upper lobe location, or both may warrant follow-up at 12 months (grade 2A; weak recommendation, high-quality evidence). (Edie et al., 2017) Single solid noncalcified nodules. ???Solid nodules smaller than 6 mm (those 5 mm or smaller) do not require routine follow-up in patients at low risk (grade 1C; strong recommendation, low- or very-low- quality evidence). (Edie et al., 2017) 3. Large amount of stool in the rectum consistent with fecal impaction. 4. Large amount of stool throughout the colon consistent with constipation. 5. Left nephrolithiasis. No obstructive uropathy. 6. Interval resolution of the bilateral pleural effusions with minimal right basilar atelectasis pres ent. 7. Interval removal of the cholecystostomy tube. RADIATION DOSE DELIVERED: 1,369.12mGy.cm Total DLP DATA REPOSITORY: All CT scans at this facility are submitted to the National Radiology Data Registry (NRDR) Dose Index Registry (DIR) with the [employer] ([employer]). RADIATION OPTIMIZATION: All CT scans at this facility use at least one of these dose optimization te chniques: automated exposure control; mA and/or kV adjustment per patient size (includes targeted exa ms where dose is matched to clinical indication); or iterative reconstruction.
[2024-02-06 15:45] LABS: NT-proBNP 5725 pg/mL (<300)
--- NOTE | 2024-02-06 16:00 | DI.RAD_ITS ---
Exam(s) XR PORTABLE CHEST AP EXAM: XR PORTABLE CHEST AP CLINICAL HISTORY: VOMITING TECHNIQUE: 2D digital imaging was performed of the chest. One image was obtained. An AP view was ob tained. COMPARISON: CR,XR XR PORTABLE CHEST AP from 01/09/2024 FINDINGS: There is poor inspiration. MEDIASTINUM: Normal. HEART: The heart is at the upper limits of normal in size. PULMONARY VASCULATURE: Normal. LUNGS: No focal consolidating infiltrates are seen. PLEURAL SPACE: No pleural effusion or pneumothorax. BONE:Within normal limits for the patient's age. There are marked degenerative changes seen in the sh oulders, right greater than left. OTHER FINDINGS:Normal. IMPRESSION: No acute pulmonary process. DATA REPOSITORY: RADIATION DOSE DELIVERED:
--- NOTE | 2024-02-06 16:05 | DI.VRAD_ITS ---
PROCEDURE INFORMATION: Exam: CT Abdomen And Pelvis Without Contrast Exam date and time: 02/06/2024 3:06 PM Age: 83 years old Clinical indication: Abdominal pain; Generalized; Patient HX: Abdomnial pain, vomiting TECHNIQUE: Imaging protocol: Computed tomography of the abdomen and pelvis without contrast. Radiation optimization: All CT scans at this facility use at least one of these dose optimization techniques: automated exposure control; mA and/or kV adjustment per patient size (includes targeted exams where dose is matched to clinical indication); or iterative reconstruction. COMPARISON: CT ABDOMEN PELVIS W 01/02/2024 1:18 AM FINDINGS: Tubes, catheters and devices: There is some focal wall thickening of the gallbladder fundal level post cholecystectomy tube removal. Lungs: Mild right lower lobe atelectasis. Probable mild bibasilar fibrosis. Pleural spaces: Previously seen pleural effusions have resolved. Heart: Cardiomegaly. Liver: Normal. No mass. Gallbladder and biliary ducts: Normal. No calcified stones. No ductal dilation. Pancreas: Normal. No ductal dilation. Spleen: Normal. No splenomegaly. Adrenal glands: Normal. No mass. Kidneys and ureters: Nonobstructing left renal lower pole calculus again seen. Stomach and bowel: The rectum is distended with fecal material 7.7 cm in diameter. There appears to be some mild soft tissue stranding adjacent to the proximal sigmoid colon junction with the distal descending colon. No significant colonic wall thickening. Appendix: No evidence of appendicitis. Intraperitoneal space: Unremarkable. No free air. No significant fluid collection. Vasculature: Moderate atherosclerotic change present in the vasculature. Lymph nodes: Unremarkable. No enlarged lymph nodes. Urinary bladder: Unremarkable as visualized. Reproductive: Unremarkable as visualized. Bones/joints: Unremarkable. No acute fracture. Soft tissues: Small, fat containing periumbilical hernia again seen. IMPRESSION: 1. Probable mild diverticulitis, uncomplicated. 2. Probable degree of fecal impaction. Dictated and Authenticated by: Jesica Landis MD. Ordering:AkashDIOGO Grullon MD
[2024-02-06] MEDS: Metoclopramide 10 MG/2 ML VIAL IVP (16:19)
[2024-02-06 16:37] LABS: Bilirubin Negative (Negative); Blood Trace-intact (Negative); Clarity Cloudy (Clear); Glucose Negative (Negative); Ketones Negative (Negative); Leukocyte Esterase Large (Negative); Nitrite Negative (Negative); Specific Gravity 1.015 (1.005-1.025); Urobilinogen 0.2 mg/dL (Up to 0.2); pH 7.5 (5-8)
--- NOTE | 2024-02-06 16:42 | W.PM.HP.N ---
Date of service: 02/06/24 Time of Service: 16:42 Assessment and Plan Assessment and plan (1) Acute kidney injury: Status: Acute Assessment and plan: Had improved from the day before with creatinine of 3.7 now down to 3.3 this is thought to be due to overdiuresis and GI losses Will admit to the medical surgical unit continue to hold diuretics provide gentle IV hydration Monitor intake and output closely Avoid nephrotoxic drugs renally dose as needed (2) (HFpEF) heart failure with preserved ejection fraction: Status: Acute Assessment and plan: echo from 01/11/24 : Conclusion Mild concentric left ventricular hypertrophy. Small left ventricular chamber size. Ejection fraction is 60%. Wall motion is normal Normal right ventricular size and function Both atria are severely dilated Aortic valve is sclerotic and probably trileaflet. There is mild aortic stenosis. Peak gradient is 32, mean 18 mmHg. Calculated aortic valve area is 1.1 cm??. There is trace aortic regurgitation Mildly thickened mitral leaflets, mitral annular calcification Normal tricuspid valve mild regurgitation estimated right ventricular systolic pressure is 52 mmHg Qualifiers: Heart failure chronicity: chronic Qualified Code(s): I50.32 - Chronic diastolic (congestive) heart failure (3) UTI (urinary tract infection): Status: Acute Assessment and plan: On ceftriaxone while urine culture is pending (4) Chronic atrial fibrillation: Status: Chronic Assessment and plan: Rate is controlled continue home meds (5) Constipation: Status: Acute Assessment and plan: aggressive bowel regimen (6) Discharge planning issues: Status: Acute Assessment and plan: back to rehab when medically stable. discussed with DR Cantu History of Present Illness History of Present Illness Chief Complaint: vomiting Narrative: This is a 83-year-old female patient past medical history significant for chronic renal insufficiency COPD chronic atrial fibrillation heart failure with preserved ejection fraction who presented to the emergency department for evaluation of worsening kidney failure. She has been at [facility] and rehab rehabbing and has been experiencing constipation now with nausea and vomiting. She was on diuretics for history of heart failure. Her diuretics have been placed on hold a day or 2 ago but her creatinine still rate continues to remain elevated she still continues to remain nauseated not taking enough p.o. her workup in the emergency department does show acute on chronic renal failure with a creatinine of 3.3. There is no evidence of obstructive uropathy she is making urine this improvement was from the day before of 3.7 imaging in the emergency department does show severe constipation she is still complaining of nausea requiring antiemetics. She has had no fever no chills no shortness of breath chest pain or abdominal pain Review of Systems All systems reviewed & are unremarkable except as noted in HPI and below PFSH All Active Problems (Updated 02/06/24 @ 18:00 by Reynold Ruiz MD) Vomiting (Acute) UTI (urinary tract infection) (Acute) Discharge planning issues (Acute) Constipation (Acute) Acute kidney injury (Acute) Palliative care patient (Acute) TAWANA (obstructive sleep apnea) (Chronic) Hyperlipidemia (Acute) Hypertension (Chronic) CRF (chronic renal failure) (Acute) Respiratory failure (Acute) Pleural effusion (Acute) Acute dyspnea (Acute) Bleeding hemorrhoids (Acute) Left arm pain (Acute) Edema of left upper extremity (Chronic) Depression (Chronic) COPD (chronic obstructive pulmonary disease) (Chronic) Colitis (Acute) Acute blood loss anemia (Acute) Diverticulosis (Chronic) Chronic atrial fibrillation (Chronic) Acute GI bleeding (Acute) Anticoagulant long-term use (Acute) Anemia (Chronic) (HFpEF) heart failure with preserved ejection fraction (Acute) Medical History Advanced care planning/counseling discussion CHF (congestive heart failure) Social History Smoking/Tobacco Use Status: Never Smoking risk assessment performed?: Yes Alcohol Intake: former Housing: apartment Do you feel safe at home: Yes Meds Allergies and Home Medications Allergies Allergy/AdvReac Type Severity Reaction Status Date / Time duloxetine [From Cymbalta] Allergy Unknown Unknown Verified 01/10/24 00:14 hydrochlorothiazide Allergy Unknown Unknown Verified 01/10/24 00:14 indomethacin [From Indocin] Allergy Unknown Unknown Verified 01/10/24 00:14 lisinopril Allergy Unknown Unknown Verified 01/10/24 00:14 oxybutynin Allergy Unknown Unknown Verified 01/10/24 00:14 tolmetin Allergy Unknown Unknown Verified 01/10/24 00:14 triamterene Allergy Unknown Unknown Verified 01/10/24 00:14 banana Allergy Unknown Verified 01/10/24 00:14 Home Medications Medication Instructions Recorded Confirmed Type amlodipine 5 mg tablet 5 mg PO DAILY 01/02/24 02/06/24 History atorvastatin 20 mg tablet 20 mg PO QHS 01/02/24 02/06/24 History fesoterodine 8 mg tablet,extended 8 mg PO DAILY 01/02/24 02/06/24 History release 24 hr fluoxetine 20 mg capsule 20 mg PO DAILY 01/02/24 02/06/24 History fluticasone propionate 50 1 spray intranasal BID 01/02/24 02/06/24 History mcg/actuation nasal spray,suspension (24 Hour Allergy Relief) metoprolol succinate 100 mg 100 mg PO DAILY 01/02/24 02/06/24 History tablet,extended release 24 hr (Toprol XL) tiotropium bromide 2.5 2 inh inhalation DAILY 01/02/24 02/06/24 History mcg/actuation mist for inhalation (Spiriva Respimat) trazodone 50 mg tablet 50 mg PO QHS PRN 01/02/24 02/06/24 History cholecalciferol (vitamin D3) 25 75 mcg PO DAILY 01/05/24 02/06/24 History mcg (1,000 unit) tablet docusate sodium 100 mg capsule 100 mg PO BID #0 caps 01/05/24 02/06/24 Rx (Colace) phenylephrine 0.25 %-mineral oil 1 applic MD BID #0 grams 01/05/24 02/06/24 Rx 14 %-petrolatm 74.9 % rectal ointment (Preparation H) aspirin 81 mg tablet,delayed 81 mg PO BID #60 tabs 01/06/24 02/06/24 Rx release (Enteric Coated Aspirin) ferrous sulfate 325 mg (65 mg 325 mg PO Q48H #15 tabs 01/06/24 02/06/24 Rx iron) tablet acetaminophen 500 mg tablet 1,000 mg (2 x 500 mg) PO TID #160 01/14/24 02/06/24 Rx tabs famotidine 20 mg tablet 10 mg (1/2 x 20 mg) PO Q48H #15 01/14/24 02/06/24 Rx tabs mirabegron 50 mg tablet,extended 25 mg (1/2 x 50 mg) PO DAILY #0 01/14/24 02/06/24 Rx release 24 hr (Myrbetriq) tabs ondansetron 4 mg disintegrating 4 mg PO Q8H PRN #10 tabs 01/14/24 02/06/24 Rx tablet spironolactone 25 mg tablet 25 mg PO DAILY #30 tabs 01/14/24 02/06/24 Rx torsemide 40 mg tablet 40 mg PO BID #60 tabs 01/14/24 02/06/24 Rx albuterol sulfate 2.5 mg/3 mL 2.5 mg continuous nebulization Q6H 02/06/24 02/06/24 History (0.083 %) solution for nebulization PRN esomeprazole magnesium 20 mg 20 mg PO DAILY PRN 02/06/24 02/06/24 History capsule,delayed release Exam Narrative Exam Narrative: Obese chronically ill female of stated age in no acute distress lying quietly on her stretcher head is atraumatic eyes nonicteric noninjected EOMs intact oral mucosa is dry neck is supple with no JVD cardiovascular regular rate and rhythm breath sounds are clear with diminished bases abdomen is morbidly obese hypoactive bowel sounds nontender moves all extremities skin with no rashes or lesions Results Labs 02/07/24 06:25 02/07/24 06:25 Labs: Laboratory Results - last 24 hr 02/06/24 02/06/24 02/06/24 14:18 14:18 14:18 WBC 10.70 RBC 3.95 Hgb 11.7 Hct 34.4 L MCV 87 MCH 29.6 MCHC 34.0 RDW 16.0 H Plt Count 274 MPV 9.4 Immature Gran % 0.4 Neutrophils % 76.6 Lymphocytes % 8.6 Monocytes % 9.0 Eosinophils % 4.8 Basophils % 0.6 Nucleated RBC % 0.0 Absolute Neutrophils 8.21 H Absolute Lymphocytes 0.92 L Absolute Monocytes 0.96 H Absolute Eosinophils 0.51 Absolute Basophils 0.06 Sodium 127 L Cancelled Potassium 4.6 Cancelled Chloride 91 L Carbon Dioxide Anion Gap BUN Creatinine Est GFR (CKD-EPI 2020) Glucose Calcium Magnesium Total Bilirubin AST ALT Alkaline Phosphatase Troponin I NT-Pro-B Natriuret Pep Total Protein Albumin Lipase Urine Color Urine Clarity Urine pH Ur Specific [place] Urine Protein Urine Ketones Urine Blood Urine Nitrite Urine Bilirubin Urine Urobilinogen Ur Leukocyte Esterase Urine Glucose 02/06/24 02/06/24 02/06/24 14:18 14:18 14:18 WBC RBC Hgb Hct MCV MCH MCHC RDW Plt Count MPV Immature Gran % Neutrophils % Lymphocytes % Monocytes % Eosinophils % Basophils % Nucleated RBC % Absolute Neutrophils Absolute Lymphocytes Absolute Monocytes Absolute Eosinophils Absolute Basophils Sodium Potassium Chloride Cancelled Carbon Dioxide 22.3 Cancelled Anion Gap 13.7 H Cancelled BUN 84 H* Creatinine Est GFR (CKD-EPI 2020) Glucose Calcium Magnesium Total Bilirubin AST ALT Alkaline Phosphatase Troponin I NT-Pro-B Natriuret Pep Total Protein Albumin Lipase Urine Color Urine Clarity Urine pH Ur Specific [place] Urine Protein Urine Ketones Urine Blood Urine Nitrite Urine Bilirubin Urine Urobilinogen Ur Leukocyte Esterase Urine Glucose 02/06/24 02/06/24 02/06/24 14:18 14:18 14:18 WBC RBC Hgb Hct MCV MCH MCHC RDW Plt Count MPV Immature Gran % Neutrophils % Lymphocytes % Monocytes % Eosinophils % Basophils % Nucleated RBC % Absolute Neutrophils Absolute Lymphocytes Absolute Monocytes Absolute Eosinophils Absolute Basophils Sodium Potassium Chloride Carbon Dioxide Anion Gap BUN Cancelled Creatinine 3.3 H Cancelled Est GFR (CKD-EPI 2020) 13.34 Cancelled Glucose 132 H Calcium Magnesium Total Bilirubin AST ALT Alkaline Phosphatase Troponin I NT-Pro-B Natriuret Pep Total Protein Albumin Lipase Urine Color Urine Clarity Urine pH Ur Specific [place] Urine Protein Urine Ketones Urine Blood Urine Nitrite Urine Bilirubin Urine Urobilinogen Ur Leukocyte Esterase Urine Glucose 02/06/24 02/06/24 02/06/24 14:18 14:18 14:18 WBC RBC Hgb Hct MCV MCH MCHC RDW Plt Count MPV Immature Gran % Neutrophils % Lymphocytes % Monocytes % Eosinophils % Basophils % Nucleated RBC % Absolute Neutrophils Absolute Lymphocytes Absolute Monocytes Absolute Eosinophils Absolute Basophils Sodium Potassium Chloride Carbon Dioxide Anion Gap BUN Creatinine Est GFR (CKD-EPI 2020) Glucose Cancelled Calcium 9.7 Cancelled Magnesium 2.3 Cancelled Total Bilirubin 0.65 AST ALT Alkaline Phosphatase Troponin I NT-Pro-B Natriuret Pep Total Protein Albumin Lipase Urine Color Urine Clarity Urine pH Ur Specific [place] Urine Protein Urine Ketones Urine Blood Urine Nitrite Urine Bilirubin Urine Urobilinogen Ur Leukocyte Esterase Urine Glucose 02/06/24 02/06/24 02/06/24 14:18 14:18 14:18 WBC RBC Hgb Hct MCV MCH MCHC RDW Plt Count MPV Immature Gran % Neutrophils % Lymphocytes % Monocytes % Eosinophils % Basophils % Nucleated RBC % Absolute Neutrophils Absolute Lymphocytes Absolute Monocytes Absolute Eosinophils Absolute Basophils Sodium Potassium Chloride Carbon Dioxide Anion Gap BUN Creatinine Est GFR (CKD-EPI 2020) Glucose Calcium Magnesium Total Bilirubin Cancelled AST 19 Cancelled ALT 17 Cancelled Alkaline Phosphatase 103 Troponin I NT-Pro-B Natriuret Pep Total Protein Albumin Lipase Urine Color Urine Clarity Urine pH Ur Specific [place] Urine Protein Urine Ketones Urine Blood Urine Nitrite Urine Bilirubin Urine Urobilinogen Ur Leukocyte Esterase Urine Glucose 02/06/24 02/06/24 02/06/24 14:18 14:18 14:18 WBC RBC Hgb Hct MCV MCH MCHC RDW Plt Count MPV Immature Gran % Neutrophils % Lymphocytes % Monocytes % Eosinophils % Basophils % Nucleated RBC % Absolute Neutrophils Absolute Lymphocytes Absolute Monocytes Absolute Eosinophils Absolute Basophils Sodium Potassium Chloride Carbon Dioxide Anion Gap BUN Creatinine Est GFR (CKD-EPI 2020) Glucose Calcium Magnesium Total Bilirubin AST ALT Alkaline Phosphatase Cancelled Troponin I < 50 NT-Pro-B Natriuret Pep 5725 H Total Protein 8.4 H Cancelled Albumin 3.2 L Cancelled Lipase 20 Urine Color Urine Clarity Urine pH Ur Specific [place] Urine Protein Urine Ketones Urine Blood Urine Nitrite Urine Bilirubin Urine Urobilinogen Ur Leukocyte Esterase Urine Glucose 02/06/24 16:18 WBC RBC Hgb Hct MCV MCH MCHC RDW Plt Count MPV Immature Gran % Neutrophils % Lymphocytes % Monocytes % Eosinophils % Basophils % Nucleated RBC % Absolute Neutrophils Absolute Lymphocytes Absolute Monocytes Absolute Eosinophils Absolute Basophils Sodium Potassium Chloride Carbon Dioxide Anion Gap BUN Creatinine Est GFR (CKDEPI 2020) Glucose Calcium Magnesium Total Bilirubin AST ALT Alkaline Phosphatase Troponin I NT-Pro-B Natriuret Pep Total Protein Albumin Lipase Urine Color Yellow Urine Clarity Cloudy Urine pH 7.5 Ur Specific [place] 1.015 Urine Protein Trace Urine Ketones Negative Urine Blood Trace-intact H Urine Nitrite Negative Urine Bilirubin Negative Urine Urobilinogen 0.2 Ur Leukocyte Esterase Large H Urine Glucose Negative Last Vital Signs Temp 36.6 C 02/06/24 13:55 Pulse 76 02/06/24 15:01 Resp 18 02/06/24 16:20 BP 104/68 02/06/24 15:01 Pulse Ox 100 02/06/24 16:20 Time Spent Time spent with Patient: 55-74 minutes Time was spent: preparing to see the patient(eg.review tests), obtaining and/or reviewing separately otained hiistory, ordering medications,tests, procedures, indepentently interpreting results and counseling the patient
[2024-02-06 16:47] LABS: Bacteria Many HPF (Negative); C & S Indicated? No/Sq. Contamination; Crystals Negative HPF (Negative); Epithelial Cells Moderate HPF (Negative); Mucus Negative (Negative); Other Cells Rare Transitional (Negative); RBC 0-2 HPF (0-2); WBC 20-50 HPF (0-5)
[2024-02-06 16:48] LABS: Creatinine,Urine 52.59 mg/dL; Sodium, Urine 23 mmol/L
--- NOTE | 2024-02-06 16:49 | DI.VRAD_ITS ---
PROCEDURE INFORMATION: Exam: XR Chest Exam date and time: 02/06/2024 4:27 PM Age: 83 years old Clinical indication: Other: Vomiting TECHNIQUE: Imaging protocol: Radiologic exam of the chest. Views: 1 view. COMPARISON: CR XR PORTABLE CHEST AP 01/09/2024 9:54 PM FINDINGS: Lungs: There is mild bibasilar atelectasis, overall improved compared to previous study. Pleural spaces: Unremarkable. No pleural effusion. No pneumothorax. Heart/Mediastinum: Cardiomegaly. Vasculature: Aortic ectasia again noted. Diaphragm: There is mild elevation of the left hemidiaphragm. Bones/joints: Severe degenerative changes noted in the shoulders. IMPRESSION: Mild bibasilar atelectasis, overall improved from prior study. Dictated and Authenticated by: Jesica Landis MD. Ordering:ADITI Grullon MD
[2024-02-06] MEDS: Normal Saline 250 ML 500 ML IV (17:53)
[2024-02-06] MEDS: Magnesium Citrate 300 ML BTL PO (17:53)
[2024-02-06] MEDS: Normal Saline Flush 10 ML SYR IVP (17:54)
[2024-02-06] MEDS: Ondansetron 4 MG/2 ML VIAL IVP (18:02)
[2024-02-06] MEDS: Bisacodyl 10 MG SUPP PR (18:06)
[2024-02-06] MEDS: Atorvastatin 20 MG TAB PO (19:43)
[2024-02-06] MEDS: Sennosides/Docusate Sodium TAB 1 TAB PO (19:44)
[2024-02-06] MEDS: Aspirin E.C. 81 MG TABEC PO (19:44)
[2024-02-06] MEDS: Acetaminophen 500 MG TAB 1000 MG PO (19:44)
[2024-02-06] MEDS: cefTRIAXone 1 GM/50 ML BAG IVPB (19:45)
--- NOTE | 2024-02-06 20:07 | RESPIRATORY ---
Addendum entered by Katty Cárdenas 02/08/24 08:26: Spoke with patient and she indicated her niece isn't able to bring her home unit to the hospital. RT reminded patient if she feels like she needs CPAP at night we can always set-up a hospital machine for her use. Original Note: RT spoke with pt. for TAWANA. Pt. states that she has home CPAP which is not wih her here in [facility]. Expecting pt's niece to bring it here either today or tomorrow. It's has O2 bleed-in 2L/min all the time. Pt's uses 2L/min NC at baseline all the time. DME is [facility]. Pt. states she will be manju without CPAP for few nights and refuses to use hospital's cpap tonight.
[2024-02-07] MEDS: Normal Saline 1,000 ML 75 ML IV ×2 (01:59→14:10)
[2024-02-07] MEDS: Ondansetron 4 MG/2 ML VIAL IVP ×2 (05:17→09:20)
[2024-02-07 06:58] LABS: Abs Immature Grans 0.14 10^3/uL (0.0-0.06); Absolute Basophil Count 0.06 10^3/uL (0.0-0.2); Absolute Eosinophil Count 0.42 10^3/uL (0.0-0.7); Absolute Lymphocyte Count 0.95 10^3/uL (1.2-3.4); Absolute Monocyte Count 0.89 10^3/uL (0.1-0.8); Basophils % 0.6 %; HCT 32.1 % (36.0-46.0); HGB 10.9 g/dL (11.2-15.7); Immature Grans % 1.3 %; Lymphocytes % 9.1 %; MCH 29.2 pg (27.0-33.0); MCV 86 fL (80-95); Monocytes % 8.5 %; Neutrophils % 76.5 %; Platelet Count 241 10^3/uL (130-400); RBC 3.73 10^6/uL (3.93-5.22); RDW 16.2 % (11.7-14.6); RDW-SD 51.6 fL; WBC 10.46 10^3/uL (4.4-10.8)
[2024-02-07 07:15] LABS: Anion Gap 11.3 mmol/L (3-11); BUN 75 mg/dL (7-18); CO2 22.7 mmol/L (21.0-32.0); CREATININE 2.8 mg/dL (0.55-1.02); Calcium 9.2 mg/dL (8.5-10.1); Chloride 96 mmol/L (98-107); Estimated GFR 16.25 (mL/min/1.73m2); Glucose 109 mg/dL (74-106); Potassium 4.8 mmol/L (3.5-5.1); Sodium 130 mmol/L (136-145)
[2024-02-07] MEDS: Tiotropium Bromide-Respimat 10 PUFF INH 2 PUFF IH (08:03)
[2024-02-07 08:04] VITALS: O2SAT 99
[2024-02-07 08:08] VITALS: BP 114/74; PULSE 80; RESP 19; TEMP 36.7; O2SAT 98
--- NOTE | 2024-02-07 08:48 | PDOC.CMIN ---
Date of service: 02/07/24 Time of Service: 08:48 Care Management Initial Assmt Initial Assessment Reason for Hospitalization: CHF, DAWSON Functional Status/Living Situation Patient Presentation: Paige Camacho was sitting up in bed visiting with her niece Kimberly when CM met with her. She was pleasant in interaction and agreeable to conversation. Paige Camacho is currently at [facility] for short term rehab following a 3 week [place] [facility] [place]. Her plan is to return to her [place] in [place] Paige Camacho has [facility] highest needs and has caregivers through [facility] for about 40 hours a week which cover every day but Thursday. She requires assistance with ADLs which the staff provides. Kimberly informed CM that prior to April, Paige Camacho was more independent. She was able to ambulate with a waker independently and do more for herself. Since then she has had many health issues with frequent hospitalizations in various hospitals. This is the 3rd SNF she has been in during this period as well ([facility] and [facility] were the other two).Kimberly [facility] that [facility] She has a handicapped accessible apartment in a senior housing complex as well as caregivers to meet her needs. It has been a challenge for Kimberly to be able to come and visit because of the distance. She lives about 3 minutes from Paige Camacho in [place]. 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[place].) Instrumental Activities of Daily Living (ADLs): Requires support with Dishes/food prep, Groceries, Laundry and Transportation Medications Medication Management: No Issues/Barriers identified Physical Functioning/Mobility Assistive Device: wheelchair, walker currently in a SNF Advance Directives Advance Directives: Do you have an Advance Directive: Y 01/02/24 03:32 AD On File at [facility]: Y 01/02/24 03:32 Date Asked 01/02/24 02/04/24 13:07 AD Date Reviewed 02/06/24 02/06/24 16:58 COLST On File at [facility] COLST Date Scanned Code Status Resuscitation Status Full Code Portal Pt does not currently have a portal and education provided: No Portal Education: Patient declined Insurance Coverage/Financial Issues Insurance: Medicare Medicaid ACO Member: No Care Team Visit Care Team Role Provider Type Blade Thayer Primary Care Provider NON-[facility] STAFF PHYSICIAN Reynold Ruiz MD Emergency Provider [facility] STAFF PHYSICIAN Leon Cantu MD Admit Provider [facility] STAFF PHYSICIAN Attending Provider Discharge Potential Discharge Needs: Other (return to SNF) Anticipated Barriers to Discharge: None Identified Patient/Family Education Needs: Review discharge instructions, discuss Ask Me Three Transportation: Facility Transport Plan: Anticipate Fiona will return to [facility] when medically cleared. She will follow up with facility providers and plan of care and transport via facility van. CM will follow and continue to assess for discharge needs. PFSH All Active Problems (Updated 02/06/24 @ 18:00 by Reynold Ruiz MD) Vomiting (Acute) UTI (urinary tract infection) (Acute) Discharge planning issues (Acute) Constipation (Acute) Acute kidney injury (Acute) Palliative care patient (Acute) TAWANA (obstructive sleep apnea) (Chronic) Hyperlipidemia (Acute) Hypertension (Chronic) CRF (chronic renal failure) (Acute) Respiratory failure (Acute) Pleural effusion (Acute) Acute dyspnea (Acute) Bleeding hemorrhoids (Acute) Left arm pain (Acute) Edema of left upper extremity (Chronic) Depression (Chronic) COPD (chronic obstructive pulmonary disease) (Chronic) Colitis (Acute) Acute blood loss anemia (Acute) Diverticulosis (Chronic) Chronic atrial fibrillation (Chronic) Acute GI bleeding (Acute) Anticoagulant long-term use (Acute) Anemia (Chronic) (HFpEF) heart failure with preserved ejection fraction (Acute) Medical History Advanced care planning/counseling discussion CHF (congestive heart failure) Social History Smoking/Tobacco Use Status: Never Smoking risk assessment performed?: Yes Alcohol Intake: former Housing: apartment Do you feel safe at home: Yes SDOH(Care Management) Screening Will the Patient Participate in the Screening?: Yes Do you worry about having a steady place to live?: yes In the past 12 months, have you had to go without electric, gas, oil or water in your home?: no Have you or anyone in your house had to go without enough food to eat?: no Has lack of transportation kept you from medical appointments or from doing things needed for daily living?: no Has anyone in your support network made you feel unsafe for any reason?: no Health Related Social Needs Health related social needs: housing instability, housed, with risk of homelessness(Z59.811)
[2024-02-07 09:12] VITALS: BP 100/79; PULSE 85; RESP 20; TEMP 36.8; O2SAT 100
[2024-02-07] MEDS: Mirabegron 25 MG TABCR PO (09:31)
[2024-02-07] MEDS: Acetaminophen 500 MG TAB 1000 MG PO ×3 (09:31→19:19)
[2024-02-07] MEDS: amLODIPine 5 MG TAB PO (09:32)
[2024-02-07] MEDS: Aspirin E.C. 81 MG TABEC PO ×2 (09:32→19:19)
[2024-02-07] MEDS: FLUoxetine 20 MG CAP PO (09:32)
[2024-02-07] MEDS: Sennosides/Docusate Sodium TAB 1 TAB PO (09:32)
[2024-02-07] MEDS: Cholecalciferol (Vitamin D3) 1,000 UNIT TAB 1000 UNITS PO (09:33)
[2024-02-07] MEDS: Metoprolol CR 100 MG TABCR PO (09:33)
--- NOTE | 2024-02-07 10:24 | W.PM.PROGNOT ---
Date of Service Date of service: 02/07/24 Time of Service: 10:24 Assessment and Plan Assessment and plan (1) Acute kidney injury: Status: Acute Assessment and plan: Further improved overnight with hydration now creatinine down to 2.8 this is thought to be due to overdiuresis and GI losses continue to hold diuretics and provide gentle IV hydration until euvolemic Monitor intake and output closely Avoid nephrotoxic drugs renally dose as needed (2) (HFpEF) heart failure with preserved ejection fraction: Status: Acute Assessment and plan: echo from 01/11/24 : Conclusion Mild concentric left ventricular hypertrophy. Small left ventricular chamber size. Ejection fraction is 60%. Wall motion is normal Normal right ventricular size and function Both atria are severely dilated Aortic valve is sclerotic and probably trileaflet. There is mild aortic stenosis. Peak gradient is 32, mean 18 mmHg. Calculated aortic valve area is 1.1 cm??. There is trace aortic regurgitation Mildly thickened mitral leaflets, mitral annular calcification Normal tricuspid valve mild regurgitation estimated right ventricular systolic pressure is 52 mmHg Qualifiers: Heart failure chronicity: chronic Qualified Code(s): I50.32 - Chronic diastolic (congestive) heart failure (3) UTI (urinary tract infection): Status: Acute Assessment and plan: On ceftriaxone while urine culture is pending (4) Chronic atrial fibrillation: Status: Chronic Assessment and plan: Rate is controlled continue home meds (5) Constipation: Status: Acute Assessment and plan: aggressive bowel regimen (6) Discharge planning issues: Status: Acute Assessment and plan: back to rehab when medically stable. discussed with DR Cantu Subjective Subjective Patient reports: no new complaints, feels better, bowel movement (large) and afebrile; denies nausea or shortness of breath Exam Narrative Exam Narrative: Obese chronically ill female of stated age in no acute distress lying quietly on her stretcher head is atraumatic eyes nonicteric noninjected EOMs intact oral mucosa is dry neck is supple with no JVD cardiovascular regular rate and rhythm breath sounds are clear with diminished bases abdomen is morbidly obese hypoactive bowel sounds nontender moves all extremities skin with no rashes or lesions Objective Last Vital Signs Temp 36.8 C 02/07/24 09:12 Pulse 85 02/07/24 09:12 Resp 20 02/07/24 09:12 BP 100/79 02/07/24 09:12 Pulse Ox 100 02/07/24 09:12 Laboratory Results - last 24 hr 02/06/24 02/06/24 02/06/24 14:18 14:18 14:18 WBC 10.70 RBC 3.95 Hgb 11.7 Hct 34.4 L MCV 87 MCH 29.6 MCHC 34.0 RDW 16.0 H Plt Count 274 MPV 9.4 Immature Gran % 0.4 Neutrophils % 76.6 Lymphocytes % 8.6 Monocytes % 9.0 Eosinophils % 4.8 Basophils % 0.6 Nucleated RBC % 0.0 Absolute Neutrophils 8.21 H Absolute Lymphocytes 0.92 L Absolute Monocytes 0.96 H Absolute Eosinophils 0.51 Absolute Basophils 0.06 Sodium 127 L Cancelled Potassium 4.6 Cancelled Chloride 91 L Carbon Dioxide Anion Gap BUN Creatinine Est GFR (CKD-EPI 2020) Glucose Calcium Magnesium Total Bilirubin AST ALT Alkaline Phosphatase Troponin I NT-Pro-B Natriuret Pep Total Protein Albumin Lipase Urine Color Urine Clarity Urine pH Ur Specific [place] Urine Protein Urine Ketones Urine Blood Urine Nitrite Urine Bilirubin Urine Urobilinogen Ur Leukocyte Esterase Urine RBC Urine WBC Ur Epithelial Cells Urine Crystals Urine Bacteria Urine Mucus Urine Other Ur Culture Indicated? Ur Random Creatinine Ur Random Sodium Urine Glucose 02/06/24 02/06/24 02/06/24 14:18 14:18 14:18 WBC RBC Hgb Hct MCV MCH MCHC RDW Plt Count MPV Immature Gran % Neutrophils % Lymphocytes % Monocytes % Eosinophils % Basophils % Nucleated RBC % Absolute Neutrophils Absolute Lymphocytes Absolute Monocytes Absolute Eosinophils Absolute Basophils Sodium Potassium Chloride Cancelled Carbon Dioxide 22.3 Cancelled Anion Gap 13.7 H Cancelled BUN 84 H* Creatinine Est GFR (CKD-EPI 2020) Glucose Calcium Magnesium Total Bilirubin AST ALT Alkaline Phosphatase Troponin I NT-Pro-B Natriuret Pep Total Protein Albumin Lipase Urine Color Urine Clarity Urine pH Ur Specific [place] Urine Protein Urine Ketones Urine Blood Urine Nitrite Urine Bilirubin Urine Urobilinogen Ur Leukocyte Esterase Urine RBC Urine WBC Ur Epithelial Cells Urine Crystals Urine Bacteria Urine Mucus Urine Other Ur Culture Indicated? Ur Random Creatinine Ur Random Sodium Urine Glucose 02/06/24 02/06/24 02/06/24 14:18 14:18 14:18 WBC RBC Hgb Hct MCV MCH MCHC RDW Plt Count MPV Immature Gran % Neutrophils % Lymphocytes % Monocytes % Eosinophils % Basophils % Nucleated RBC % Absolute Neutrophils Absolute Lymphocytes Absolute Monocytes Absolute Eosinophils Absolute Basophils Sodium Potassium Chloride Carbon Dioxide Anion Gap BUN Cancelled Creatinine 3.3 H Cancelled Est GFR (CKD-EPI 2020) 13.34 Cancelled Glucose 132 H Calcium Magnesium Total Bilirubin AST ALT Alkaline Phosphatase Troponin I NT-Pro-B Natriuret Pep Total Protein Albumin Lipase Urine Color Urine Clarity Urine pH Ur Specific [place] Urine Protein Urine Ketones Urine Blood Urine Nitrite Urine Bilirubin Urine Urobilinogen Ur Leukocyte Esterase Urine RBC Urine WBC Ur Epithelial Cells Urine Crystals Urine Bacteria Urine Mucus Urine Other Ur Culture Indicated? Ur Random Creatinine Ur Random Sodium Urine Glucose 02/06/24 02/06/24 02/06/24 14:18 14:18 14:18 WBC RBC Hgb Hct MCV MCH MCHC RDW Plt Count MPV Immature Gran % Neutrophils % Lymphocytes % Monocytes % Eosinophils % Basophils % Nucleated RBC % Absolute Neutrophils Absolute Lymphocytes Absolute Monocytes Absolute Eosinophils Absolute Basophils Sodium Potassium Chloride Carbon Dioxide Anion Gap BUN Creatinine Est GFR (CKD-EPI 2020) Glucose Cancelled Calcium 9.7 Cancelled Magnesium 2.3 Cancelled Total Bilirubin 0.65 AST ALT Alkaline Phosphatase Troponin I NT-Pro-B Natriuret Pep Total Protein Albumin Lipase Urine Color Urine Clarity Urine pH Ur Specific [place] Urine Protein Urine Ketones Urine Blood Urine Nitrite Urine Bilirubin Urine Urobilinogen Ur Leukocyte Esterase Urine RBC Urine WBC Ur Epithelial Cells Urine Crystals Urine Bacteria Urine Mucus Urine Other Ur Culture Indicated? Ur Random Creatinine Ur Random Sodium Urine Glucose 02/06/24 02/06/24 02/06/24 14:18 14:18 14:18 WBC RBC Hgb Hct MCV MCH MCHC RDW Plt Count MPV Immature Gran % Neutrophils % Lymphocytes % Monocytes % Eosinophils % Basophils % Nucleated RBC % Absolute Neutrophils Absolute Lymphocytes Absolute Monocytes Absolute Eosinophils Absolute Basophils Sodium Potassium Chloride Carbon Dioxide Anion Gap BUN Creatinine Est GFR (CKD-EPI 2020) Glucose Calcium Magnesium Total Bilirubin Cancelled AST 19 Cancelled ALT 17 Cancelled Alkaline Phosphatase 103 Troponin I NT-Pro-B Natriuret Pep Total Protein Albumin Lipase Urine Color Urine Clarity Urine pH Ur Specific [place] Urine Protein Urine Ketones Urine Blood Urine Nitrite Urine Bilirubin Urine Urobilinogen Ur Leukocyte Esterase Urine RBC Urine WBC Ur Epithelial Cells Urine Crystals Urine Bacteria Urine Mucus Urine Other Ur Culture Indicated? Ur Random Creatinine Ur Random Sodium Urine Glucose 02/06/24 02/06/24 02/06/24 14:18 14:18 14:18 WBC RBC Hgb Hct MCV MCH MCHC RDW Plt Count MPV Immature Gran % Neutrophils % Lymphocytes % Monocytes % Eosinophils % Basophils % Nucleated RBC % Absolute Neutrophils Absolute Lymphocytes Absolute Monocytes Absolute Eosinophils Absolute Basophils Sodium Potassium Chloride Carbon Dioxide Anion Gap BUN Creatinine Est GFR (CKD-EPI 2020) Glucose Calcium Magnesium Total Bilirubin AST ALT Alkaline Phosphatase Cancelled Troponin I < 50 NT-Pro-B Natriuret Pep 5725 H Total Protein 8.4 H Cancelled Albumin 3.2 L Cancelled Lipase 20 Urine Color Urine Clarity Urine pH Ur Specific [place] Urine Protein Urine Ketones Urine Blood Urine Nitrite Urine Bilirubin Urine Urobilinogen Ur Leukocyte Esterase Urine RBC Urine WBC Ur Epithelial Cells Urine Crystals Urine Bacteria Urine Mucus Urine Other Ur Culture Indicated? Ur Random Creatinine Ur Random Sodium Urine Glucose 02/06/24 02/07/24 16:18 06:25 WBC 10.46 RBC 3.73 L Hgb 10.9 L Hct 32.1 L MCV 86 MCH 29.2 MCHC 34.0 RDW 16.2 H Plt Count 241 MPV 10.0 Immature Gran % 1.3 Neutrophils % 76.5 Lymphocytes % 9.1 Monocytes % 8.5 Eosinophils % 4.0 Basophils % 0.6 Nucleated RBC % 0.0 Absolute Neutrophils 8.00 H Absolute Lymphocytes 0.95 L Absolute Monocytes 0.89 H Absolute Eosinophils 0.42 Absolute Basophils 0.06 Sodium 130 L Potassium 4.8 Chloride 96 L Carbon Dioxide 22.7 Anion Gap 11.3 H BUN 75 H Creatinine 2.8 H Est GFR (CKD-EPI 2020) 16.25 Glucose 109 H Calcium 9.2 Magnesium Total Bilirubin AST ALT Alkaline Phosphatase Troponin I NT-Pro-B Natriuret Pep Total Protein Albumin Lipase Urine Color Yellow Urine Clarity Cloudy Urine pH 7.5 Ur Specific [place] 1.015 Urine Protein Trace Urine Ketones Negative Urine Blood Trace-intact H Urine Nitrite Negative Urine Bilirubin Negative Urine Urobilinogen 0.2 Ur Leukocyte Esterase Large H Urine RBC 0-2 Urine WBC 20-50 H Ur Epithelial Cells Moderate Urine Crystals Negative Urine Bacteria Many Urine Mucus Negative Urine Other Rare Transitional Ur Culture Indicated? No/Sq. Contamination Ur Random Creatinine 52.59 Ur Random Sodium 23 Urine Glucose Negative Time Spent with Patient Time Spent with Patient: 35-49 minutes Time was spent: preparing to see the patient(eg.review tests), obtaining and/or reviewing separately otained hiistory, ordering medications,tests, procedures, indepentently interpreting results and counseling the patient
[2024-02-07 15:03] VITALS: BP 106/75; PULSE 84; RESP 18; TEMP 36.3; O2SAT 100
[2024-02-07] MEDS: cefTRIAXone 1 GM/50 ML BAG IVPB (16:18)
[2024-02-07 16:58] LABS: Bilirubin Negative (Negative); Blood Trace-intact (Negative); Clarity Sl Cloudy (Clear); Glucose Negative (Negative); Ketones Negative (Negative); Leukocyte Esterase Small (Negative); Nitrite Negative (Negative); Specific Gravity 1.015 (1.005-1.025); Urobilinogen 0.2 mg/dL (Up to 0.2)
[2024-02-07 18:08] LABS: Bacteria Rare HPF (Negative); C & S Indicated? No/Sq. Contamination; Crystals Negative HPF (Negative); Epithelial Cells Many HPF (Negative); Mucus Trace (Negative); RBC 0-2 HPF (0-2)
[2024-02-07 19:15] LABS: WBC 20-50 HPF (0-5)
[2024-02-07] MEDS: Atorvastatin 20 MG TAB PO (19:19)
[2024-02-07] MEDS: Fluticasone NASAL SPRAY 16 GM BTL NS (19:21)
[2024-02-07 20:19] VITALS: O2SAT 98
[2024-02-07 23:15] VITALS: BP 109/58; PULSE 67; RESP 18; TEMP 36.8; O2SAT 99
[2024-02-08] MEDS: Normal Saline 1,000 ML 75 ML IV ×2 (03:47→16:58)
[2024-02-08 07:24] LABS: Abs Immature Grans 0.02 10^3/uL (0.0-0.06); Absolute Basophil Count 0.05 10^3/uL (0.0-0.2); Absolute Eosinophil Count 0.52 10^3/uL (0.0-0.7); Absolute Lymphocyte Count 1.14 10^3/uL (1.2-3.4); Absolute Monocyte Count 0.78 10^3/uL (0.1-0.8); Absolute Neutrophil Count 4.56 10^3/uL (1.2-6.7); Basophils % 0.7 %; Eosinophils % 7.4 %; HCT 29.8 % (36.0-46.0); HGB 9.9 g/dL (11.2-15.7); Immature Grans % 0.3 %; Lymphocytes % 16.1 %; MCH 29.6 pg (27.0-33.0); MCHC 33.2 % (32.0-36.0); MCV 89 fL (80-95); MPV 10.1 fL (8.0-11.0); Neutrophils % 64.5 %; Platelet Count 225 10^3/uL (130-400); RBC 3.34 10^6/uL (3.93-5.22); RDW 16.4 % (11.7-14.6); WBC 7.07 10^3/uL (4.4-10.8)
[2024-02-08 07:33] VITALS: BP 113/70; PULSE 83; RESP 18; TEMP 36.3; O2SAT 100
[2024-02-08 07:44] LABS: BUN 56 mg/dL (7-18); CREATININE 2.4 mg/dL (0.55-1.02); Calcium 8.5 mg/dL (8.5-10.1); Chloride 99 mmol/L (98-107); Estimated GFR 19.55 (mL/min/1.73m2); Glucose 96 mg/dL (74-106); Potassium 4.2 mmol/L (3.5-5.1); Sodium 132 mmol/L (136-145)
[2024-02-08] MEDS: Tiotropium Bromide-Respimat 10 PUFF INH 2 PUFF IH (08:22)
[2024-02-08] MEDS: amLODIPine 5 MG TAB PO (09:00)
[2024-02-08] MEDS: FLUoxetine 20 MG CAP PO (09:00)
[2024-02-08] MEDS: Mirabegron 25 MG TABCR PO (09:00)
[2024-02-08] MEDS: Aspirin E.C. 81 MG TABEC PO ×2 (09:00→22:27)
[2024-02-08] MEDS: Metoprolol CR 100 MG TABCR PO (09:00)
[2024-02-08] MEDS: Cholecalciferol (Vitamin D3) 1,000 UNIT TAB 1000 UNITS PO (09:00)
[2024-02-08] MEDS: Acetaminophen 500 MG TAB 1000 MG PO ×2 (09:00→22:27)
[2024-02-08] MEDS: Ondansetron 4 MG/2 ML VIAL IVP ×2 (09:43→17:27)
--- NOTE | 2024-02-08 11:26 | W.PM.DS.N ---
Date of service: 02/09/24 Time of Service: 11:27 DS: Diagnosis Discharge Diagnosis (1) Acute kidney injury: Status: Acute (2) (HFpEF) heart failure with preserved ejection fraction: Status: Acute (3) UTI (urinary tract infection): Status: Acute (4) Chronic atrial fibrillation: Status: Chronic (5) Constipation: Status: Acute Discharge Plan Disposition Patient Disposition: [facility]NF) Condition: Improving Discharge Details Reason For Visit: DAWSON,dehydration, UTI Admit Date/Time: 02/06/24 16:41 Admit Provider: Leon Cantu Attending Provider: Leon Cantu Primary Care Provider: Blade Thayer Hospital Course Hospital Course: This 88-year-old female patient with a past medical history of COPD, oxygen dependence, heart failure with preserved ejection fraction, atrial fibrillation presented to the ED at [facility] via EMS on 02/06/2024 with vomiting and abdominal pain starting 2 days prior to presentation. The patient reported small bowel movements and stated that she has had persistent vomiting. The ED provider noted that as per report from the rehabilitation facility the provider was concerned with worsening kidney function. The patient had not tried any medicine to relieve the vomiting prior to presentation. Patient was discharged from [facility] on January 13 with normal lab values. The patient diuretics were held 1-2 days prior to presentation but as per workup from the ED department her creatinine remained at 3.3 from 3.7, sodium was 127. There was no evidence of obstructive uropathy on imaging obtained the day prior and the patient was still making urine. Imaging also denotes severe constipation as the patient still reported nausea and vomiting. Urine also showed urinary tract infection. The hospitalist admitted the patient to the medical surgical floor for acute on chronic kidney injury, UTI, and dehydration. During the stay the patient received slow IV hydration, antiemetics, IV ceftriaxone and bowel management medicine. Other chronic conditions were managed as per home med regimen but diuretics were held due to acute kidney injury superimposed to chronic kidney disease. Today creatinine went back to 1.8 and sodium is 135. The patient should be on a heart healthy diet without extreme sodium restriction. The patient was found to have gram-negative rods in the urine and will be discharged on cefpodoxime with a short course of probiotics and will need to repeat UA on 02/15/2024. The patient complained of chest pain and torsemide was ordered and effective and will be ordered upon discharge. The patient will be discharged home on lesser doses of torsemide and spironolactone. The patient will also have oral Zofran ordered as needed for nausea and the patient will continue Reglan prior to meals. The patient also counseled on not refusing her bowel management medicine as she will be discharged on daily MiraLAX. Spoke to the patient nisaece Kimberly regarding DAWSON on CKD and how CKD cannot be cured, creatinine levels improving. Discussed with Dr. Hennessy Home Meds and New Rx's Prescriptions: New metoclopramide HCl 10 mg Tablet 5 mg PO AC Qty: 30 0RF simethicone 80 mg Tablet,Chewable 40 mg PO PC & HS Qty: 60 0RF polyethylene glycol 3350 17 gram Powder In Packet 17 g PO DAILY Qty: 60 0RF torsemide 20 mg tablet 30 mg PO BID Qty: 90 0RF cefpodoxime 100 mg tablet 100 mg PO BID Qty: 9 0RF Rx Instructions: must administer with a meal/food Bio-K plus 50 billion cell capsule,delayed release(DR/EC) 1 cap PO DAILY Qty: 5 0RF Rx Instructions: Give 3 hours apart from antibiotics ondansetron 4 mg tablet,disintegrating 4 mg PO Q8H PRNQty: 30 0RF Continued esomeprazole magnesium 20 mg capsule,delayed release(DR/EC) 20 mg PO DAILY PRN albuterol sulfate 2.5 mg /3 mL (0.083 %) solution for nebulization 2.5 mg continuous nebulization Q6H PRN amlodipine 5 mg tablet 5 mg PO DAILY fesoterodine 8 mg tablet extended release 24 hr 8 mg PO DAILY fluoxetine 20 mg capsule 20 mg PO DAILY fluticasone propionate [24 Hour Allergy Relief] 50 mcg/actuation spray,suspension 1 spray intranasal BID Rx Instructions: administer into each nostril metoprolol succinate [Toprol XL] 100 mg tablet extended release 24 hr 100 mg PO DAILY Spiriva Respimat 2.5 mcg/actuation mist 2 inh inhalation DAILY trazodone 50 mg tablet 50 mg PO QHS PRN atorvastatin 20 mg tablet 20 mg PO QHS cholecalciferol (vitamin D3) 25 mcg (1,000 unit) tablet 75 mcg PO DAILY Patient Comments: TAKE 3 TABLETS BY MOUTH DAILY docusate sodium [Colace] 100 mg Capsule 100 mg PO BID Qty: 0 0RF Preparation H 0.25-14-74.9 % Ointment 1 applic MS BID Qty: 0 0RF ferrous sulfate 325 mg (65 mg iron) tablet 325 mg PO Q48H Qty: 15 0RF aspirin [Enteric Coated Aspirin] 81 mg tablet,delayed release (DR/EC) 81 mg PO BID Qty: 60 0RF famotidine 20 mg Tablet 10 mg PO Q48H Qty: 15 0RF acetaminophen 500 mg Tablet 1,000 mg PO TID Qty: 160 0RF ondansetron 4 mg tablet,disintegrating 4 mg PO Q8H PRNQty: 10 0RF mirabegron [Myrbetriq] 50 mg tablet extended release 24 hr 25 mg PO DAILY Qty: 0 0RF Changed spironolactone 25 mg Tablet 12.5 mg PO DAILY Qty: 30 0RF Discontinued torsemide 40 mg tablet 40 mg PO BID Qty: 60 0RF Hold Instructions: Changed by Provider Discharge Instructions Activity:: Activity as Tolerated Equipment/Supplies:: Walker Diet:: heart healthy Discharge Orders Discharge Orders: Discharge Order (Routine); Ordered 02/09/24 Ordered By: Soledad Beasley Other Ambulatory Orders: Urinalysis (Routine) Timeframe: 20240215 Facility: [facility] - Location: Laboratory Outpatient - [facility] Ordered By: Soledad Beasley DS: Summary Time Spent with Patient providing and/or coordinating discharge services: Greater than 30 minutes Status at Discharge Functional status at discharge: uses cane/walker Overall status at discharge: patient is progressing back to baseline Mental Status: mental status grossly normal Speech and Movement: speech and movement normal Mood: congruent mood Affect: normal affect Quality:SDOH Health Related Social Needs: Health related social needs risk of homeless Exam Narrative Exam Narrative: Constitutional The patient is in bed without acute distress and has obese body habitus HENMT: Facial structures with normal appearance Neuro:alert and oriented X3 . No neurological focal deficit Resp: Clear lung bilaterally Cardio: regular rhythm, S1, S2, positive radial and pedal pulses GI: Abdomen is not distended, soft ,slight tenderness on palpation to left lower abd but improved with flatus , bowel sounds are present Integumentary: No skin lesions or rash Psych: RASS 0, congruent mood and normal affect. Psych Mental Status: mental status grossly normal Speech and Movement: speech and movement normal Mood: congruent mood Affect: normal affect DS: Data Vitals/I&O Vitals and I&O: Vital Signs Temperature 36.3 C L 02/08/24 07:33 Temperature Source Skin 02/08/24 07:33 Pulse 83 02/08/24 07:33 Pulse Rhythm Regular 02/08/24 11:17 Pulse 88 02/06/24 17:01 Respiratory Rate 18 02/08/24 07:33 Respiratory Effort Normal, Non-Labored 02/08/24 11:17 Respiratory Depth Shallow 02/08/24 11:17 Respiratory Pattern Normal 02/08/24 11:17 Blood Pressure 113/70 02/08/24 07:33 Blood Pressure Mean 85 02/06/24 17:01 Pulse Oximetry 100 02/08/24 07:33 Oxygen Delivery Method Nasal Cannula 02/08/24 07:33 Oxygen Flow Rate 2 02/08/24 07:33 Pain Level 4 02/08/24 09:00 Comment 4/10 shoulder pain. 02/08/24 07:33 Intake & Output 02/07/24 02/07/24 02/08/24 11:59 23:59 11:59 Intake Total 402 / 2862 2460 / 2862 1410 / 1410 Output Total 850 / 1650 800 / 1650 1000 / 1000 Balance -448 / 1212 1660 / 1212 410 / 410 Weight 94.982 kg 94.9 kg Intake: IV 102 / 2112 2009 1050 / 1050 Oral 300 / 750 450 / 750 360 / 360 Output: Urine 850 / 1650 800 / 1650 1000 / 1000 Other: Urine Color Yellow Yellow Yellow Urine Appearance Clear Clear Clear Comment Strong smell. Stool Size Copious Small Moderate Stool Characteristics Hard Soft Soft Liquid Formed Brown Brown Data Completed and Pending Labs on day of discharge: Labs from last 24 hours 02/08/24 02/07/24 06:55 16:20 WBC 7.07 RBC 3.34 L Hgb 9.9 L Hct 29.8 L MCV 89 MCH 29.6 MCHC 33.2 RDW 16.4 H Plt Count 225 MPV 10.1 Immature Gran % 0.3 Neutrophils % 64.5 Lymphocytes % 16.1 Monocytes % 11.0 Eosinophils % 7.4 Basophils % 0.7 Nucleated RBC % 0.0 Absolute Neutrophils 4.56 Absolute Lymphocytes 1.14 L Absolute Monocytes 0.78 Absolute Eosinophils 0.52 Absolute Basophils 0.05 Sodium 132 L Potassium 4.2 Chloride 99 Carbon Dioxide 25.0 Anion Gap 8.0 BUN 56 H Creatinine 2.4 H Est GFR (CKD-EPI 2020) 19.55 Glucose 96 Calcium 8.5 Urine Color Yellow Urine Clarity Sl Cloudy Urine pH 5.0 Ur Specific [place] 1.015 Urine Protein Negative Urine Ketones Negative Urine Blood Trace-intact H Urine Nitrite Negative Urine Bilirubin Negative Urine Urobilinogen 0.2 Ur Leukocyte Esterase Small H Urine RBC 0-2 Urine WBC 20-50 H Ur Epithelial Cells Many Urine Crystals Negative Urine Bacteria Rare Urine Mucus Trace Ur Culture Indicated? No/Sq. Contamination Urine Glucose Negative PFSH All Active Problems (Updated 02/08/24 @ 14:17 by Soledad Beasley APRN) On deep vein thrombosis (DVT) prophylaxis (Acute) Nausea & vomiting (Acute) Vomiting (Acute) UTI (urinary tract infection) (Acute) Discharge planning issues (Acute) Constipation (Acute) Acute kidney injury (Acute) Palliative care patient (Acute) [place] (obstructive sleep apnea) (Chronic) Hyperlipidemia (Acute) Hypertension (Chronic) CRF (chronic renal failure) (Acute) Respiratory failure (Acute) Pleural effusion (Acute) Acute dyspnea (Acute) Bleeding hemorrhoids (Acute) Left arm pain (Acute) Edema of left upper extremity (Chronic) Depression (Chronic) COPD (chronic obstructive pulmonary disease) (Chronic) Colitis (Acute) Acute blood loss anemia (Acute) Diverticulosis (Chronic) Chronic atrial fibrillation (Chronic) Acute GI bleeding (Acute) Anticoagulant long-term use (Acute) Anemia (Chronic) (HFpEF) heart failure with preserved ejection fraction (Acute) Medical History Advanced care planning/counseling discussion CHF (congestive heart failure) Social History Smoking/Tobacco Use Status: Never Smoking risk assessment performed?: Yes Alcohol Intake: former Housing: apartment Do you feel safe at home: Yes Time Spent with Patient Time Spent with Patient: >85 minutes Time was spent: preparing to see the patient(eg.review tests), obtaining and/or reviewing separately otained hiistory, ordering medications,tests, procedures, referring, communicating with other health childcare center director, indepentently interpreting results, counseling the patient and care coordination
--- NOTE | 2024-02-08 12:28 | PDOC.CMPRO ---
Date of service: 02/08/24 Time of Service: 12:28 Care Management Progress Note Progress Note Text Progress Note Text: Paige was sitting up in bed when CM met with her. She shared that she felt good this morning however after breaakfast she vomited a small amount and with lunch she became nauseated again. She informed CM that her niece is working with outside agencies to try to resume her home services to prepare for her to come home. Paige Camacho is still a patient at [facility] but has made improvements and her niece feels she can soon be managed at home. Paige's BUN and creatinine continue to decrease and her sodium is now up to 132. Discharge Potential Discharge Needs: Other (SNF) Anticipated Barriers to Discharge: Treatment delay Patient/Family Education Needs: Review discharge instructions, discuss Ask Me Three Transportation: Facility Transport Plan: Anticipate Paige will be transferred back to [facility] when medically cleared. She will follow up with facility providers and plan of care and transport via facility van. CM will follow and continue to assess for discharge needs. SDOH(Care Management) Screening Will the Patient Participate in the Screening?: Yes Do you worry about having a steady place to live?: yes In the past 12 months, have you had to go without electric, gas, oil or water in your home?: no Have you or anyone in your house had to go without enough food to eat?: no Has lack of transportation kept you from medical appointments or from doing things needed for daily living?: no Has anyone in your support network made you feel unsafe for any reason?: no Health Related Social Needs Health related social needs: housing instability, housed, with risk of homelessness(Z59.811)
--- NOTE | 2024-02-08 13:53 | PGE_ITS ---
Date of Service Date of service: 02/08/24 Time of Service: 13:53 Assessment and Plan Assessment and plan (1) Acute kidney injury: Status: Acute Assessment and plan: Cr still improved overnight with hydration now creatinine down to 2.4 Most likely from overdiuresis and GI losses continue IV hydration until euvolemic hold diuretic Monitor intake and output closely Continue to avoid nephrotoxic drugs renally dose as needed (2) (HFpEF) heart failure with preserved ejection fraction: Status: Acute Assessment and plan: echo from 01/11/24 : LVEF 60%, RVSP 52 mmHg The report further mentioned: Small left ventricular chamber size. Wall motion is normal Normal right ventricular size and function Both atria are severely dilated Aortic valve is sclerotic and probably trileaflet. There is trace aortic regurgitation Mildly thickened mitral leaflets, mitral annular calcification Normal tricuspid valve mild regurgitation Was on diuretics will resume lower dosage prior to discharge Qualifiers: Heart failure chronicity: chronic Qualified Code(s): I50.32 - Chronic diastolic (congestive) heart failure (3) UTI (urinary tract infection): Status: Acute Assessment and plan: Continue ceftriaxone UA was positive for small leuk esterase and WBC , did not cascade to urine culture Urine culture ordered today Discontine fermin (4) Chronic atrial fibrillation: Status: Chronic Assessment and plan: Rate remains controlled Continue home meds: metoprolol (5) Constipation: Status: Acute Assessment and plan: Continue aggressive bowel regimen (6) On deep vein thrombosis (DVT) prophylaxis: Status: Acute Assessment and plan: RANDI's ordered (7) Nausea & vomiting: Status: Acute Assessment and plan: Continue antiemetic: PRN ondansetron and scheduled reglan 5 mg AC Start simethicone PC (8) Discharge planning issues: Status: Acute Assessment and plan: Back to rehab when medically stable and able to take PO w/o vomiting Discussed with Dr. Hennessy Subjective Subjective Patient reports: tolerating liquids well, bowel movement, nausea, vomiting and afebrile; denies diarrhea or shortness of breath Interval history since last seen: Patient denies chills or fever overnight. Reports vomiting part of breakfast, nausea and dry heaving at lunchtime. Exam Narrative Exam Narrative: Constitutional The patient is in bed without acute distress and has obese body habitus HENMT: Facial structures with normal appearance Neuro:alert and oriented X3 . No neurological focal deficit Resp: Clear lung bilaterally Cardio: regular rhythm, S1, S2, positive radial and pedal pulses GI: Abdomen is not distended, soft ,tender to left upper quadrant on palpation , bowel sounds are present Integumentary: No skin lesions or rash Psych: RASS 0, congruent mood and normal affect. Objective Last Vital Signs Temp 36.3 C L 02/08/24 07:33 Pulse 83 02/08/24 07:33 Resp 18 02/08/24 07:33 BP 113/70 02/08/24 07:33 Pulse Ox 100 02/08/24 07:33 Laboratory Results - last 24 hr 02/07/24 02/08/24 16:20 06:55 WBC 7.07 RBC 3.34 L Hgb 9.9 L Hct 29.8 L MCV 89 MCH 29.6 MCHC 33.2 RDW 16.4 H Plt Count 225 MPV 10.1 Immature Gran % 0.3 Neutrophils % 64.5 Lymphocytes % 16.1 Monocytes % 11.0 Eosinophils % 7.4 Basophils % 0.7 Nucleated RBC % 0.0 Absolute Neutrophils 4.56 Absolute Lymphocytes 1.14 L Absolute Monocytes 0.78 Absolute Eosinophils 0.52 Absolute Basophils 0.05 Sodium 132 L Potassium 4.2 Chloride 99 Carbon Dioxide 25.0 Anion Gap 8.0 BUN 56 H Creatinine 2.4 H Est GFR (CKD-EPI 2020) 19.55 Glucose 96 Calcium 8.5 Urine Color Yellow Urine Clarity Sl Cloudy Urine pH 5.0 Ur Specific [place] 1.015 Urine Protein Negative Urine Ketones Negative Urine Blood Trace-intact H Urine Nitrite Negative Urine Bilirubin Negative Urine Urobilinogen 0.2 Ur Leukocyte Esterase Small H Urine RBC 0-2 Urine WBC 20-50 H Ur Epithelial Cells Many Urine Crystals Negative Urine Bacteria Rare Urine Mucus Trace Ur Culture Indicated? No/Sq. Contamination Urine Glucose Negative Time Spent with Patient Time Spent with Patient: >50 minutes Time was spent: preparing to see the patient(eg.review tests), obtaining and/or reviewing separately otained hiistory, ordering medications,tests, procedures, referring, communicating with other health career education teacher, indepentently interpreting results, counseling the patient and care coordination
--- NOTE | 2024-02-08 14:22 | PHA.REVIEW2 ---
Pharmacy Admission Review Admission Clinical Review Admission Pharmacy Review: Vomiting (Acute) UTI (urinary tract infection) (Acute) Discharge planning issues (Acute) Constipation (Acute) Acute kidney injury (Acute) CRF (chronic renal failure) (Acute) (HFpEF) heart failure with preserved ejection fraction (Acute) duloxetine [From Cymbalta] Allergy (Unknown, Verified 01/10/24 00:14) Unknown hydrochlorothiazide Allergy (Unknown, Verified 01/10/24 00:14) Unknown indomethacin [From Indocin] Allergy (Unknown, Verified 01/10/24 00:14) Unknown lisinopril Allergy (Unknown, Verified 01/10/24 00:14) Unknown oxybutynin Allergy (Unknown, Verified 01/10/24 00:14) Unknown tolmetin Allergy (Unknown, Verified 01/10/24 00:14) Unknown triamterene Allergy (Unknown, Verified 01/10/24 00:14) Unknown banana Allergy (Verified 01/10/24 00:14) Unknown Resuscitation Status Full Code Height 5 ft 6 in Weight 94.9 kg Pharmacy Admission Review Renal Dosing Renal Dosing: BUN 56 mg/dL (7-18) H 02/08/24 06:55 Creatinine 2.4 mg/dL (0.55-1.02) H 02/08/24 06:55 Medications needing adjustments: Reviewed (CrCl 20.57 mL/min, BUN decreased from 75, SCr decreased from 2.8) List of meds needing interventions: Current medications are okay Anticoagulation Anticoagulation: Hgb 9.9 g/dL (11.2-15.7) L 02/08/24 06:55 Hct 29.8 % (36.0-46.0) L 02/08/24 06:55 Plt Count 225 10^3/uL (130-400) 02/08/24 06:55 Creatinine 2.4 mg/dL (0.55-1.02) H 02/08/24 06:55 DVT Prophylaxis: Reviewed (TEDs) Relevant Labs Relevant Labs: Sodium 132 mmol/L (136-145) L 02/08/24 06:55 Potassium 4.2 mmol/L (3.5-5.1) 02/08/24 06:55 Chloride 99 mmol/L (98-107) 02/08/24 06:55 Magnesium 2.3 mg/dL (1.8-2.4) 02/06/24 14:18 Magnesium Cancelled 02/06/24 14:18 Electrolytes, C-Reactive P, ESR: Reviewed (Na increased from 130, Hgb decreased from 10.9 to 9.9) Cardiac Review Cardiac Review: Troponin I < 50 ng/L (< or =60) 02/06/24 14:18 NT-Pro-B Natriuret Pep 5725 pg/mL (<300) H 02/06/24 14:18 BP, HR, EF%: Reviewed (BP and HR WNL) QTc Review QTc: Reviewed (456 from 02/06/24) IV to PO Switch IV Medications: Reviewed (ceftriaxone and ondansetron) Home Meds Home Med List reviewed: Intervened Relevent Home Meds Not ordered & why?: docusate (PRN), fesoterodine, spironolactone (not taking per home med list), furosemide (not taking per home med list) Reached out to provider regarding fesoterodine Current Meds Current Medication Order Review: Reviewed Pharmacy Antibiotic Review Relevant Labs: WBC 7.07 10^3/uL (4.4-10.8) 02/08/24 06:55 Temperature 36.3 C Pharmacy Antibiotic Activity: Reviewed, no change Comments: Patient is on ceftriaxone day 2 for UTI. No urine cultures in patients chart, will reach out to provider.
[2024-02-08 15:23] VITALS: BP 118/87; PULSE 84; RESP 18; TEMP 36.4; O2SAT 100
[2024-02-08] MEDS: cefTRIAXone 1 GM/50 ML BAG IVPB (16:56)
[2024-02-08] MEDS: Metoclopramide 10 MG TAB 5 MG PO (17:08)
[2024-02-08] MEDS: Famotidine 20 MG TAB 10 MG PO (18:13)
[2024-02-08] MEDS: Simethicone 80 MG CHEW 40 MG PO ×2 (18:16→22:27)
[2024-02-08 22:16] VITALS: BP 132/80; PULSE 79; RESP 18; TEMP 36.6; O2SAT 100
[2024-02-08] MEDS: Atorvastatin 20 MG TAB PO (22:26)
[2024-02-09 03:21] VITALS: BP 126/87; PULSE 77; RESP 18; TEMP 36.1; O2SAT 100
[2024-02-09] MEDS: Ondansetron 4 MG/2 ML VIAL IVP ×3 (03:39→13:14)
[2024-02-09] MEDS: Normal Saline 1,000 ML 75 ML IV (07:29)
[2024-02-09 08:34] VITALS: BP 120/84; PULSE 78; RESP 17; TEMP 36.4; O2SAT 99
[2024-02-09] MEDS: Tiotropium Bromide-Respimat 10 PUFF INH 2 PUFF IH (08:41)
[2024-02-09] MEDS: Metoclopramide 10 MG TAB 5 MG PO ×2 (09:13→11:59)
[2024-02-09] MEDS: Acetaminophen 500 MG TAB 1000 MG PO (09:13)
[2024-02-09] MEDS: Cholecalciferol (Vitamin D3) 1,000 UNIT TAB 1000 UNITS PO (09:13)
[2024-02-09] MEDS: Aspirin E.C. 81 MG TABEC PO (09:13)
[2024-02-09] MEDS: amLODIPine 5 MG TAB PO (09:14)
[2024-02-09] MEDS: Metoprolol CR 100 MG TABCR PO (09:14)
[2024-02-09] MEDS: Mirabegron 25 MG TABCR PO (09:14)
[2024-02-09] MEDS: FLUoxetine 20 MG CAP PO (09:14)
[2024-02-09] MEDS: Simethicone 80 MG CHEW 40 MG PO ×2 (09:14→11:59)
[2024-02-09] MEDS: Fluticasone NASAL SPRAY 16 GM BTL NS (09:23)
[2024-02-09] MEDS: Cefpodoxime 200 MG TAB 100 MG PO (11:04)
[2024-02-09 12:03] LABS: Anion Gap 11.3 mmol/L (3-11); BUN 37 mg/dL (7-18); CO2 20.7 mmol/L (21.0-32.0); CREATININE 1.8 mg/dL (0.55-1.02); Calcium 8.5 mg/dL (8.5-10.1); Chloride 103 mmol/L (98-107); Estimated GFR 27.61 (mL/min/1.73m2); Glucose 127 mg/dL (74-106); Sodium 135 mmol/L (136-145)
--- NOTE | 2024-02-09 12:49 | CMDISCH_ITS ---
Date of service: 02/09/24 Time of Service: 12:49 LACE Index Scoring Tool Questions: Length of Stay (in days): 3 Was the patient admitted via the E.D.?: Yes Comorbidities: Congestive Heart Failure and Chronic Pulmonary Disease E.D. Visits: 4 Answers: Total Score: 15 Risk of Readmission: High Risk Care Management Discharge Plan Reason for Hospitalization: DAWSON, dehydration, UTI Discharge Plan: Paige is medically ready for discharge and is agreeable to discharge back to SNF where she is receiving STR. Pt will follow up with community/facility providers and her discharge plan of care as instructed. Patient/Family Education Needs: Review discharge instructions, limitations and plan to follow up with community providers. Discuss ask me three. Services Needed at Discharge: [facility] Facility (Back to [facility] for STR) and Transportation (Facility w/c van) SDOH Health Related Social Needs: Health related social needs risk of homeless Health related social needs: housing instability, housed, with risk of homelessness(Z59.811)
--- NOTE | 2024-02-09 12:49 | NUR.NOTE ---
Nursing Note: RN to RN report given to Edgar Hernández @ [facility] and [facility]
[2024-02-09] MEDS: Normal Saline Flush 10 ML SYR (13:22)
== END 2024-02-09 13:32 | disposition skilled nursing facility (03) | DRG 683 ==
LOC: ER 16:58 → MS 17:28
PROVIDERS: Nurse Practitioner Acute Care; Admitting Provider Internal Medicine; Emergency Provider Emergency Medicine; PCP Family Medicine; Visit Provider Internal Medicine
DX: N17.9 Acute kidney failure, unspecified (principal); I13.0 Hypertensive heart and chronic kidney disease with heart failure and stage 1 through stage 4 chronic kidney disease, or unspecified chronic kidney disease; I50.32 Chronic diastolic (congestive) heart failure; I48.20 Chronic atrial fibrillation, unspecified; N39.0 Urinary tract infection, site not specified; R11.2 Nausea with vomiting, unspecified; Z79.899 Other long term (current) drug therapy; K59.00 Constipation, unspecified; N18.9 Chronic kidney disease, unspecified; J44.9 Chronic obstructive pulmonary disease, unspecified; G47.33 Obstructive sleep apnea (adult) (pediatric); E78.5 Hyperlipidemia, unspecified; F32.A Depression, unspecified; K57.30 Diverticulosis of large intestine without perforation or abscess without bleeding; Z79.01 Long term (current) use of anticoagulants; D64.9 Anemia, unspecified; Z99.81 Dependence on supplemental oxygen; E86.0 Dehydration; R07.89 Other chest pain; B96.5 Pseudomonas (aeruginosa) (mallei) (pseudomallei) as the cause of diseases classified elsewhere
CPT/HCPCS: 00123; 36415; 51702; 80048; 80053; 83690; 87077; 93005; 94640; 96365; 96366; 96375; 99285; 71045; 74176; 81003; 81015; 82565; 83735; 83880; 84300; 84484; 85025; 87086; 87186; 93010; 94664; 94760; 99222; 99232; 99239; J0696; J2405; J2765